=== PATIENT | female | born 1950 | race Caucasian/White ===

== ENCOUNTER 2022-08-12 15:08 | Outpatient (CLI) | payer MEDICARE, OTHER, SELFPAY ==
--- NOTE | 2022-08-12 15:15 | CRLHL7_ITS ---
For Patients: As a result of the Century Cures Act, medical imaging exams and procedure reports are released immediately into your electronic medical record. You may view this report before your referring provider. If you have questions, please contact your health care provider. Indication: Pain Technique: Three views right wrist Comparison: None Findings: Chronic ossicle adjacent to the tip of the ulnar styloid. Narrowing and spurring at the triscaphe joint and 1st carpometacarpal joint. No fracture. No erosive changes. Impression: Multifocal degenerative joint disease. Dictated by Alejandro Deluca MD @ 08/13/2022 9:49:49 AM (Electronically Signed)
--- NOTE | 2022-08-12 15:15 | CRLHL7_ITS ---
For Patients: As a result of the Cures Act, medical imaging exams and procedure reports are released immediately into your electronic medical record. You may view this report before your referring provider. If you have questions, please contact your health care provider. Indication: Pain Technique: Right hand 3 views. Comparison: None Findings: Multifocal joint space narrowing and spurring involving the interphalangeal joints and metacarpophalangeal joints along with the 1st carpometacarpal joint. Osteopenia. No fracture. No erosive changes. Impression: Moderate multifocal degenerative joint disease. Dictated by Alejandro Deluca MD @ 08/13/2022 9:14:16 AM (Electronically Signed)
--- NOTE | 2022-08-12 15:15 | CRLHL7_ITS ---
For Patients: As a result of the Century Cures Act, medical imaging exams and procedure reports are released immediately into your electronic medical record. You may view this report before your referring provider. If you have questions, please contact your health care provider. Indication: Pain Technique: Three views left wrist Comparison: None Findings: Joint space narrowing and spurring at the 1st carpometacarpal joint. Chronic ossicle adjacent to the distal ulna. No acute fracture. No erosive changes. Impression: Moderate 1st carpometacarpal degenerative joint disease. Dictated by Alejandro Deluca MD @ 08/13/2022 9:15:05 AM (Electronically Signed)
--- NOTE | 2022-08-12 15:15 | CRLHL7_ITS ---
For Patients: As a result of the Century Cures Act, medical imaging exams and procedure reports are released immediately into your electronic medical record. You may view this report before your referring provider. If you have questions, please contact your health care provider. Indication: Pain Technique: Three views left hand Comparison: None Findings: Multifocal joint space narrowing and spurring involving the interphalangeal joints, metacarpophalangeal joints and 1st carpometacarpal joint. Prominent spurring at the little finger DIP joint noted. Multiple small chronic ossicles adjacent to the joint spaces. No fracture or erosive change. Impression: Multifocal degenerative joint disease. Dictated by Alejandro Deluca MD @ 08/13/2022 9:49:06 AM (Electronically Signed)
== END 2022-08-12 15:09 | disposition home or self-care (01) ==
LOC: RAD 15:13
PROVIDERS: PCP Family Medicine; Visit Provider Internal Medicine Rheumatology
DX: M25.531 Pain in right wrist (principal); M19.231 Secondary osteoarthritis, right wrist; M79.642 Pain in left hand; M19.042 Primary osteoarthritis, left hand; M25.532 Pain in left wrist; M19.232 Secondary osteoarthritis, left wrist; M79.641 Pain in right hand; M19.041 Primary osteoarthritis, right hand
CPT/HCPCS: 73110; 73130

== ENCOUNTER 2022-10-12 07:06 | Outpatient (CLI) | payer MEDICARE, OTHER, SELFPAY ==
--- NOTE | 2022-10-12 07:15 | CRLHL7_ITS ---
For Patients: As a result of the Century Cures Act, medical imaging exams and procedure reports are released immediately into your electronic medical record. You may view this report before your referring provider. If you have questions, please contact your health care provider. INDICATION: Low back pain. Numbness. COMPARISON: None. TECHNIQUE: Sagittal T1, T2, and STIR sequences. Axial T1 and T2 weighted sequences. FINDINGS: Grade 1 anterolisthesis of L4 on L5 measures approximately 5 mm. Otherwise, normal alignment. No fractures. No vertebral body loss of height. Postoperative changes of laminectomies at L3-4 L4-5 and L5-S1. Posterior cody and transpedicular screw fixation L3-L5. Associated artifact. Edema and likely granulation tissue within the posterior soft tissues of the operative bed. No suspicious osseous lesions. Number conus terminates at L1-2. T12-L1: Disc degeneration posterior disc bulge. No spinal canal or neural foraminal narrowing. L1-2: Advanced disc degeneration. Loss disc height. Diffuse disc bulge and endplate osteophytic ridging eccentric to the right. Modic type 1 endplate changes. Mild narrowing of spinal canal. Moderate right and mild left neural foraminal narrowing. Potential impingement of the exiting right L1 nerve root. Mild facet arthropathy. L2-3: Disc degeneration. No narrowing of the spinal canal. Mild narrowing of the bilateral foramina. L3-4: Disc degeneration posterior disc bulge. No narrowing of spinal canal. Mild narrowing of bilateral foramina. L4-5: Grade 1 anterolisthesis. No narrowing of spinal canal. No neural foraminal narrowing. L5-S1: Postoperative changes. No narrowing of spinal canal. No impingement of the traversing S1 nerve roots. Allowing for artifact, a known and neural foraminal narrowing. Degenerative changes of the SI joints. Bone graft donor site right ilium. IMPRESSION: 1. Grade 1 anterolisthesis of L4 on L5. Otherwise normal alignment. No fractures. 2. Postop changes L3-4, L4-5 and L5-S1. 3. At L1-2, advanced disc degeneration. Diffuse disc bulge and endplate osteophytic ridging. Mild narrowing of spinal canal moderate right and mild left neural foraminal narrowing. Potential impingement of the exiting right L1 nerve root 4. Mild narrowing of the bilateral neural foramina at L2-3 and L3-4 Dictated by Camilo Ramsay MD @ 10/12/2022 5:08:00 PM (Electronically Signed)
== END 2022-10-12 07:07 | disposition home or self-care (01) ==
PROVIDERS: PCP Family Medicine; Visit Provider Specialist
DX: M54.50 Low back pain, unspecified (principal); M51.36 Other intervertebral disc degeneration, lumbar region; M51.26 Other intervertebral disc displacement, lumbar region; R20.0 Anesthesia of skin
CPT/HCPCS: 72148

== ENCOUNTER 2024-05-27 20:07 | Emergency (ER) | payer MEDICARE, OTHER, SELFPAY ==
[2024-05-27] VITALS (30 sets, daily range): BP systolic 112–189; BP diastolic 71–131; PULSE 73–95; RESP 18–20; TEMP 36.4; O2SAT 84–100; BMI 26.0
--- NOTE | 2024-05-27 | CRLHL7_ITS ---
For Patients: As a result of the Century Cures Act, medical imaging exams and procedure reports are released immediately into your electronic medical record. You may view this report before your referring provider. If you have questions, please contact your health care provider. Indication: Pelvis, post reduction Technique: Successive frontal views of the pelvis Comparison: Same day radiographs Findings/Impression: Successive use pelvis. The final image demonstrates restored alignment of the left hip prosthesis. Dictated by Chris Vera MD @ 05/27/2024 10:24:55 PM (Electronically Signed)
--- NOTE | 2024-05-27 20:23 | CRLHL7_ITS ---
For Patients: As a result of the Cures Act, medical imaging exams and procedure reports are released immediately into your electronic medical record. You may view this report before your referring provider. If you have questions, please contact your health care provider. Indication: Dislocation. Technique: Single AP view of the pelvis. Comparison: None. Findings/Impression: Bilateral total hip arthroplasties. Superolateral dislocation of the left femoral stem from the acetabular cup. No definite fracture visualized on this single view. Intact right hip arthroplasty. Lower lumbar fusion changes. Degenerative changes of the sacroiliac joints. The soft tissues are unremarkable. Dictated by Sp Mo MD @ 05/27/2024 9:28:13 PM (Electronically Signed)
--- NOTE | 2024-05-27 20:35 | ED_ITS ---
HPI - General Adult General Chief complaint: Hip Injury/Pain <Jose Juan Yang MD - Last Filed: 05/27/24 22:27> Stated complaint: Fall <Jose Juan Yang MD - Last Filed: 05/27/24 22:27> Time Seen by Provider: 05/27/24 20:15 <Jose Juan Yang MD - Last Filed: 05/27/24 22:27> History of Present Illness HPI narrative: This 73-year-old female comes in with a hip injury that occurred just prior to arrival. She has had a left total hip replacement and has had 2 previous dislocations. Today she was in the bathroom and twisted to grab a hold of something when her hip dislocated. She does not report any other injury. <Jose Juan Yang MD - Last Filed: 05/27/24 22:27> Related Data Home medications: Home Medications ?Medication ?Instructions ?Recorded ?Confirmed amlodipine 5 mg tablet 5 mg PO DAILY 09/16/22 05/29/24 dapagliflozin propanediol 10 mg 10 mg PO DAILY 09/16/22 05/29/24 tablet (Farxiga) fluticasone propionate 50 2 spray intranasal DAILY PRN 09/16/22 05/29/24 mcg/actuation nasal spray,suspension meloxicam 15 mg tablet 15 mg PO DAILY 09/16/22 05/29/24 dulaglutide 0.75 mg/0.5 mL 0.75 mg subcut QWEEK 04/13/23 05/29/24 subcutaneous pen injector ([facility]) losartan 50 mg tablet 50 mg PO DAILY 04/13/23 05/29/24 rosuvastatin 20 mg tablet 20 mg PO HS 04/13/23 05/29/24 duloxetine 60 mg capsule,delayed 60 mg PO DAILY 05/29/24 05/29/24 release levothyroxine 88 mcg tablet 88 mcg PO DAILY 05/29/24 05/29/24 omeprazole 40 mg capsule,delayed 40 mg PO BID 05/29/24 05/29/24 release Previous Rx's ?Medication ?Instructions ?Recorded acetaminophen 500 mg capsule 500 - 1,000 mg (1 - 2 x 500 mg) PO 04/13/23 Q6H PRN #100 caps sennosides 8.6 mg-docusate sodium 1 - 4 tab-cap (1 - 4 x 8.6-50 mg) 04/13/23 50 mg tablet (Senna-S) PO BID PRN constipation #60 tabs <Jose Juan Yang MD - Last Filed: 05/27/24 22:27> Allergies/adverse reactions: Allergies Allergy/AdvReac Type Severity Reaction Status Date / Time hydrocodone Allergy Intermediate nausea and Verified 05/29/24 15:26 vomiting oxycodone Allergy Intermediate nausea, Verified 05/29/24 15:26 itchy ragweed pollen Allergy Intermediate runny Verified 05/29/24 15:26 nose, congetion, watery eyes <Jose Juan Yang MD - Last Filed: 05/27/24 22:27> Review of Systems 2 Status of ROS: Reports: 10 or more systems reviewed and unremarkable except as noted in History and below <Jose Juan Yang MD - Last Filed: 05/27/24 2 2:27> Narrative: Constitutional: No fevers, no weight gain or loss. Eyes: No discharge. No vision changes. HENT: No congestion, no sore throat, no ear pain. Cardiovascular: No chest pain, no palpitations. Respiratory: No shortness of breath, no wheezes, no cough. Gastrointestinal: No abdominal pain, no vomiting, no diarrhea. Genitourinary: No dysuria, no hematuria. Musculoskeletal: Left hip dislocation. Skin: No rashes, no pruritis. Neurological: No dizziness, weakness, sensory change, speech change. Endo/Heme/Allergies: No bruising or bleeding. No polydipsia. Pysch: no suicidality, no anxiety, no insomnia. All other systems reviewed and are negative. <Jose Juan Yang MD - Last Filed: 05/27/24 22:27> [facility] Medical History: Medical History (Updated 05/31/24 @ 09:03 by Maynor Dupont PA-C) Diabetic gastroparesis ?E11.43 - Type 2 diabetes mellitus with diabetic autonomic (poly)neuropathy (ICD-10) ?K31.84 - Gastroparesis (ICD-10) Coronary artery disease ?I25.10 - Atherosclerotic heart disease of [place] coronary artery without angina pectoris (ICD-10) Hypertension ?I10 - Essential (primary) hypertension (ICD-10) Diabetes ?E11.9 - Type 2 diabetes mellitus without complications (ICD-10) Wax in ear ?H61.20 - Impacted cerumen, unspecified ear (ICD-10) Sinus pain ?J34.89 - Other specified disorders of nose and nasal sinuses (ICD-10) Sensation of plugged ear ?H93.8X9 - Other specified disorders of ear, unspecified ear (ICD-10) Encounter for postoperative care ?Z48.89 - Encounter for other specified surgical aftercare (ICD-10) <Jose Juan Yang MD - Last Filed: 05/27/24 22:27> Surgical History: Surgical History (Updated 05/31/24 @ 09:02 by Maynor Dupont PA-C) History of arthroscopy of hip (08/20/15) ?Z98.890 - Other specified postprocedural states (ICD-10) History of total right knee replacement (04/13/23) ?Z96.651 - Presence of right artificial knee joint (ICD-10) S/P arthroscopy of left shoulder (05/10/06) ?Z98.890 - Other specified postprocedural states (ICD-10) S/P arthroscopy of right shoulder (11/08/06) ?Z98.890 - Other specified postprocedural states (ICD-10) 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) ?Z96.641 - Presence of right artificial hip joint (ICD-10) History of total left hip replacement (2005) ?Z96.642 - Presence of left artificial hip joint (ICD-10) History of fusion of lumbar spine (03/13/13) ?Z98.1 - Arthrodesis status (ICD-10) History of bilateral inguinal hernia repair ?Z98.890 - Other specified postprocedural states (ICD-10) ?Z87.19 - Personal history of other diseases of the digestive system (ICD-10) <Jose Juan Yang MD - Last Filed: 05/27/24 22:27> Family History: Family History Mother High blood pressure Diabetes Hyperlipidemia Brother Diabetes Hyperlipidemia Sister Diabetes Hyperlipidemia Breast cancer COPD (chronic obstructive pulmonary disease) <Jose Juan Yang MD - Last Filed: 05/27/24 22:27> Social History: Social History (Reviewed 12/22/23 @ 13:56 by Gris Gudino ~ [facility], [facility]) Narrative: micheline Migdalia ([facility]) Nonsmoker Smoking Status: Former smoker What tobacco products do you use: cigarettes Smoking packs per day: 0.5 Smoking cigarettes per day: 10.0 Years smoked: 12 Smoking pack-years: 6.00 Smoking quit date/years: >15 years ago Do you use any of these nicotine containing products: None Second hand tobacco smoke exposure: No How often do you have a drink containing alcohol: never How many standard drinks containing alcohol do you have on a typical day: 1 or 2 How often do you have six or more drinks on one occasion: Never AUDIT-C Alcohol total score: 0 Non-prescribed substance use: denies use Caffeine: Yes (coffee, 1- 1 1/2 cup/day) service: No <Jose Juan Yang MD - Last Filed: 05/27/24 22:27> Exam Narrative: Exam Narrative: Constitutional: Well-developed, well-nourished, no acute distress. HEENT: Normocephalic, atraumatic. Neck: Normal range of motion. Nontender. Supple. Heart: Intact distal pulses. Lungs: No chest discomfort. No wheezes, rhonchi, or rales. Abdomen: Nontender. Back: Normal range of motion. Extremities: Left hip is abducted and slightly internally rotated. She is unable to lift her leg. Skin: Intact. No rash. Warm. No erythema or pallor. Neurologic: No altered sensation. No weakness. Alert and oriented. Psychiatric: No suicidality. No anxiety or depression. No insomnia. Nursing notes and vitals signs are reviewed. <Jose Juan Yang MD - Last Filed: 05/27/24 22:27> Const: Vital Signs, click to edit/add: Vital Signs - 24 hr 05/27/24 20:12 Temperature 97.6 F Pulse Rate [Right Pulse Oximeter] 76 Respiratory Rate 20 Blood Pressure [Le ft Upper Arm] 173/86 H Pulse Oximetry 94 Oxygen Delivery Me thod Room Air <Jose Juan Yang MD - Last Filed: 05/27/24 22:27> Vital Signs, click to edit/add: Vital Signs - 24 hr 05/27/24 20:12 Temperature 97.6 F Pulse Rate [Right Pulse Oximeter] 76 Respiratory Rate 20 Blood Pressure [Le ft Upper Arm] 173/86 H Pulse Oximetry 94 Oxygen Delivery Me thod Room Air <Cherrie Lazo MD - Last Filed: 05/31/24 12:27> Course Course ED Course: I was asked to provide moderate sedation for this patient for the relocation of her hip. Risks and benefits of the procedure were discussed with the patient. She denies any reaction anesthesia in the past. Has had propofol without incident before. Time-out performed 60 mg of IV propofol was used. Patient was properly sedated. Unfortunately relocation of the hip was unsuccessful. Patient did wake up afterwards. We discussed doing the procedure again and patient wished to proceed. Therefore another 60 mg of IV propofol was used. Appropriate sedation was achieved. Hip was relocated. Patient woke up from procedural sedation without complication. <Cherrie Lazo MD - Last Filed: 05/31/24 12:27> Vital Signs Vital signs: Initial Vital Signs Temperature 97.6 F 05/27/24 20:12 Temperature Source Temporal Artery Scan 05/27/24 20:12 Pulse Rate 76 05/27/24 20:12 Pulse Rhythm Regular 05/27/24 20:12 Respiratory Rate 20 05/27/24 20:12 Blood Pressure 173/86 H 05/27/24 20:12 Blood Pressure Mean 115 H 05/27/24 20:12 Blood Pressure Position Semi-Fowlers 05/27/24 20:12 Pulse Oximetry 94 05/27/24 20:12 Oxygen Delivery Method Room Air 05/27/24 20:12 Vital Signs Temperature 97.6 F 05/27/24 20:12 Pulse Rate 76 05/27/24 20:12 Respiratory Rate 20 05/27/24 20:12 Blood Pressure 173/86 H 05/27/24 20:12 Pulse Oximetry 94 05/27/24 20:12 Oxygen Delivery Method Room Air 05/27/24 20:12 Temperature 97.6 F 05/27/24 20:12 Pulse Rate 81 05/27/24 22:37 Respiratory Rate 18 05/27/24 21:45 Blood Pressure 157/74 H 05/27/24 22:42 Pulse Oximetry 95 05/27/24 22:37 Oxygen Delivery Method Room Air 05/27/24 20:12 <Jose Juan Yang MD - Last Filed: 05/27/24 22:27> Initial Vital Signs Temperature 97.6 F 05/27/24 20:12 Temperature Source Temporal Artery Scan 05/27/24 20:12 Pulse Rate 76 05/27/24 20:12 Pulse Rhythm Regular 05/27/24 20:12 Respiratory Rate 20 05/27/24 20:12 Blood Pressure 173/86 H 05/27/24 20:12 Blood Pressure Mean 115 H 05/27/24 20:12 Blood Pressure Position Semi-Fowlers 05/27/24 20:12 Pulse Oximetry 94 05/27/24 20:12 Oxygen Delivery Method Room Air 05/27/24 20:12 Vital Signs Temperature 97.6 F 05/27/24 20:12 Pulse Rate 76 05/27/24 20:12 Respiratory Rate 20 05/27/24 20:12 Blood Pressure 173/86 H 05/27/24 20:12 Pulse Oximetry 94 05/27/24 20:12 Oxygen Delivery Method Room Air 05/27/24 20:12 Temperature 97.6 F 05/27/24 20:12 Pulse Rate 81 05/27/24 22:37 Respiratory Rate 18 05/27/24 21:45 Blood Pressure 157/74 H 05/27/24 22:42 Pulse Oximetry 95 05/27/24 22:37 Oxygen Delivery Method Room Air 05/27/24 20:12 <Cherrie Lazo MD - Last Filed: 05/31/24 12:27> Medications Administered Medications: Discontinued Medications Generic Name Dose Route Start Last Admin Trade Name Freq PRN Reason Stop Dose Admin Hydromorphone HCl 0.5 mg 05/27/24 20:42 05/27/24 20:55 Hydromorphone 0.5 Mg/0.5 Ml Inj IVP 05/27/24 20:43 0.5 mg ONCE ONE Administration Sodium Chloride 700 mls @ 1,000 mls/hr 05/27/24 22:18 05/27/24 22:20 0.9 % Sodium Chloride 250 Ml IV 05/27/24 22:59 1,000 mls/hr .Q42M ONE Administration Propofol 200 mg 05/27/24 20:24 05/27/24 21:43 Propofol 10 Mg/Ml Inj IVP 05/27/24 20:25 120 mg ONCE ONE Administration <Jose Juan Yang MD - Last Filed: 05/27/24 22:27> Discontinued Medications Generic Name Dose Route Start Last Admin Trade Name Edy PRN Reason Stop Dose Admin Hydromorphone HCl 0.5 mg 05/27/24 20:42 05/27/24 20:55 Hydromorphone 0.5 Mg/0.5 Ml Inj IVP 05/27/24 20:43 0.5 mg ONCE ONE Administration Sodium Chloride 700 mls @ 1,000 mls/hr 05/27/24 22:18 05/27/24 22:20 0.9 % Sodium Chloride 250 Ml IV 05/27/24 22:59 1,000 mls/hr .Q42M ONE Administration Propofol 200 mg 05/27/24 20:24 05/27/24 21:43 Propofol 10 Mg/Ml Inj IVP 05/27/24 20:25 120 mg ONCE ONE Administration <Cherrie Lazo MD - Last Filed: 05/31/24 12:27> Medical Decision Making MDM Narrative Medical decision making narrative: This patient comes in with injury to her left hip that is probable dislocation. X-ray images are obtained and do show an anterior dislocation of the left hip prosthesis. The patient last ate about 3 hours prior to arrival. I did recommend sedation with propofol and acquired informed consent after explaining risks and benefits of this procedure. Dr. Lazo is assisting in this procedure by administering the propofol and observing vital signs. The patient received 60 mg of propofol for adequate sedation but I was unsuccessful in 1st attempt to relocate the hip. She received another 60 mg and this time was a successful relocation of the dislocated hip. This was confirmed with x-ray image. The patient received a abducting pillow and is okay to be discharged home. She will need to follow-up with orthopedic clinic for ongoing plans as this is her 3rd dislocation of that left hip. <Jose Juan Yang MD - Last Filed: 05/27/24 22:27> ECG Data Attestation: I personally reviewed and interpreted this ECG as follows: <Jose Juan Yang MD - Last Filed: 05/27/24 22:27> Interpretation: Normal sinus rhythm. Rate is 72 beats per minute. There are no ST or T- wave abnormalities. <Jose Juan Yang MD - Last Filed: 05/27/24 22:27> Discharge Plan Discharge Clinical Impression: Dislocation, hip closed Qualifiers: Encounter type: subsequent encounter Laterality: left Qualified Code(s): S73.005D - Unspecified dislocation of left hip, subsequent encounter <Jose Juan Yang MD - Last Filed: 05/27/24 22:27> Patient Disposition: Home w/ Parent or Adult <Jose Juan Yang MD - Last Filed: 05/27/24 22:27> Condition: Improved <Jose Juan Yang MD - Last Filed: 05/27/24 22:27> Instructions: Hip Dislocation (ED), Hip Abduction Pillow (DC) <Jose Juan Yang MD - Last Filed: 05/27/24 22:27> Additional Instructions: Keep legs spread apart to avoid re dislocation. Follow-up with orthopedic clinic for ongoing management. Call [phone] for appointment. Return if worsening. <Jose Juan Yang MD - Last Filed: 05/27/24 22:27> Prescriptions: No Action Farxiga 10 mg tablet 10 mg PO DAILY amlodipine 5 mg tablet 5 mg PO DAILY fluticasone propionate 50 mcg/actuation spray,suspension 2 spray intranasal DAILY PRN meloxicam 15 mg tablet 15 mg PO DAILY Hold Instructions: Resume on 05/15/23. until you stop the celebrex. do not take meloxicam and Celebrex together levothyroxine 88 mcg tablet 88 mcg PO DAILY omeprazole 40 mg capsule,delayed release(DR/EC) 40 mg PO BID duloxetine 60 mg capsule,delayed release(DR/EC) 60 mg PO DAILY Trulicity 0.75 mg/0.5 mL pen injector 0.75 mg subcut QWEEK sennosides-docusate sodium [Senna-S] 8.6-50 mg tablet 1 - 4 tab-cap PO BID PRN (Reason: constipation) Qty: 60 0RF Rx Instructions: Hold medication if experiencing loose stools. acetaminophen 500 mg capsule 500 - 1,000 mg PO Q6H MDD 4000mg PRNQty: 100 0RF losartan 50 mg tablet 50 mg PO DAILY rosuvastatin 20 mg tablet 20 mg PO HS <Jose Juan Yang MD - Last Filed: 05/27/24 22:27> Follow Up/Referrals: Anne Campos MD [Primary Care Provider] - <Jose Juan Yang MD - Last Filed: 05/27/24 22:27> Stand Alone Forms: My[facility] Info Instructions <Jose Juan Yang MD - Last Filed: 05/27/24 22:27>
[2024-05-27] MEDS: HYDROmorphone 0.5 mg/0.5 ml inj IVP (20:55)
[2024-05-27] MEDS: PROPOFOL 10 MG/ML INJ 200 MG IVP (21:43)
--- OUTSIDE RECORDS SUMMARY | 2024-05-27 22:28 | XMS_ITS | Encounter Summary ---
Author Organization [place] Address [facility] [place] [address] Care Team Providers Care Assembler Mechanical Ordnance Name Role Phone Camilo Talamantes MD Primary Care Provider [phone] Khloe Wallace RN Unavailable [phone] Daisha Corado MD Unavailable [phone] Daisha Corado MD Primary Care Provider [phone] Khushi Sylvester RN Unavailable Unavailable Anne Campos MD Primary Care Provider [phone] Reason for Visit * Reason Onset Date Comments MyChart Communication 03/28/2022 GI referra l Encounter Details Date Type Department Care Team (Latest Contact Info) Description 03/28/2022 [facility] [place] Medical Advice [address] [address] Daisha Corado MD [address] [place] [address] MyChart Communication (GI referral) Social History Tobacco Use Types Packs/Day Years Used Date Smoking Tobacco: Former Cigarettes 0.5 41 0 11/14/1963 - 11/14/2004 Smokeless Tobacco: Never Alcohol Use Standard Drinks/Week Comments No 0 (1 standard drink = 0.6 oz pur e alcohol) rare Social Connection and Isolat ion Panel [NHANES] Answer Date Recorded In a typical week, how many times do you talk on the phone with family, friends, or neighbors? More than three times a week 03/08/2022 How often do you get togethe r with friends or relatives? Once a week 03/08/2022 How often do you attend chur or baptist services? More than 4 times per year 03/08/2022 Do you belong to any clubs o r organizations such as denominational groups, unions, fraternal or athletic groups, or school groups? No 03/08/2022 Attends Club or Organization Meetings Not on donny e 03/08/2022 Are you , , di vorced, , never , or living with a partner? 03/08/2022 AUDIT-C Answer Date Recorded Q1: How often do you have a drink containing alc ohol? Monthly or less 03/08/2022 Q2: How many drinks containi ng alcohol do you have on a typical day when you are drinking? 1 or 2 03/08/2022 Q3: How often do you have si x or more drinks on one occasion? Never 03/08/2022 Overall Financial Resource Strain (CARDIA) Answe r Date Recorded How hard is it for you to pa y for the very basics like food, housing, medical care, and heating? Not hard at all 03/08/2022 PHQ-2 Answer Date Recorded PHQ-2 Score 0 03/15/2022 [facility] Occupat ional [facility] - Occupational Stress Questionnaire Answer Date Recorded Do you feel stress - tense, restless, nervous, or anxious, or unable to sleep at night because your mind is troubled all the time - these days? Not at all 03/08/2022 Exercise Vital Sign Answer Date Recorde d On average, how many days pe r week do you engage in moderate to strenuous exercise (like a brisk walk)? 0 days 03/08/2022 On average, how many minutes do you engage in exercise at this level? 0 min 03/08/2022 Hunger Vital Sign Answer Date Recorded Within the past 12 months, y ou worried that your food would run out before you got the money to buy more. Never true 03/08/20 22 Within the past 12 months, t he food you bought just didn't last and you didn't have money to get more. Never true 03/08/2022 PRAPARE - Transportation Answer Date Re corded In the past 12 months, has l ack of transportation kept you from medical appointments or from getting medications? No 02/13 In the past 12 months, has l ack of transportation kept you from meetings, work, or from getting things needed for daily living? No 03/08/2022 Housing Stability Vital Sign Answer Navdeep e Recorded In the last 12 months, was t here a time when you were not able to pay the mortgage or rent on time? No 03/08/2022 In the last 12 months, how many places have you lived? 1 03/08/2022 In the last 12 months, was t here a time when you did not have a steady place to sleep or slept in a chcf (including now)? No 03/08/2022 Sex and Gender Information Value Date Recorded Sex Assigned at Female 03/08/2022 2:21 PM CDT Gender Identity Female 03/08/2022 2:21 PM CDT Sexual Orientation Not on file COVID-19 Exposure Response Date Recorded In the last 10 days, have yo u been in contact with someone who was confirmed or suspected to have Coronavirus/COVID-19? No / Unsure 03/29/2022 10:20 AM CDT documented as of this encounter Miscellaneous Notes * Telephone Encounter - Daisha Corado MD - 03/29/2022 12:17 PM CDT I am not at all against this but I saw her on 03/15/22 to establish care and do physical and I do notthink we addressed this. Perhaps phone visit to discuss and order appropriate testing? * Telephone Encounter - Sandrine Huntley RN - 03/29/2022 9:22 AM CDT See [employer] message, pt had visit on 03/15/[address] Corado, routed to , please review and advise Sandrine Huntley RN, BSN [facility] documented in this encounter Plan of Treatment Not on file documented as of this encounter Visit Diagnoses Not on filedocumented in this encounter Care Teams Assembler Mechanical Ordnance Relationship Specialty Start Date End Date Camilo Talamantes MD [facility] [address] [place] [address] PCP - General Family Practice 04/07/17 04/15/22 [place] [address] [place] [address] PCP - General Family Medicine 04/16/22 04/03/23 Anne Campos MD [address] [address] PCP - General 04/04/23 Khloe Wallace RN Hot Patcher Diabetes Education 03/29/22 [place] [address] [place] [address] Assigned PCP 02/26/22 Khushi Sylvester RN Personal Advocate & Liaison (PAL) Family Medicine 05/25/22 04/03/23 documented as of this encounter
--- OUTSIDE RECORDS SUMMARY | 2024-05-27 22:28 | XMS_ITS | Encounter Summary ---
Author Organization [place] Address [facility] [place] [address] Care Team Providers Care Shoe Stock Associate Name Role Phone Khloe Wallace RN Unavailable [phone] Daisha Corado MD Unavailable [phone] Daisha Corado MD Primary Care Provider [phone] Khushi Sylvester RN Unavailable Unavailable Anne Campos MD Primary Care Provider [phone] Reason for Visit * Reason Onset Date Comments Forms 11/19/2022 Diabetic Detaile d Written Order Encounter Details Date Type Department Care Team (Late st Contact Info) Description 11/19/[address] [address] Daisha Corado MD [address] [place] [address] [phone] Forms (Diabetic Detailed Written Order) Social History Tobacco Use Types Packs/Day Years [...] How often do you attend chur or catholic services? More than 4 times per year 03/08/2022 Do you belong to any clubs o r organizations such as amish groups, unions, fraternal or athletic groups, or [...] PHQ-2 Answer Date Recorded PHQ-2 Score 0 07/12/2022 [facility] [place] of Occupat ional Health - Occupational Stress [...] place to sleep or slept in a snf (including now)? No 03/08/2022 Sex and Gender Information Value Date Recorded Sex Assigned at Female 03/08/2022 2:21 PM CDT Gender Identity Female 03/08/2022 2:21 PM CDT Sexual Orientation Not on file documented as of this encounter Miscellaneous Notes * Telephone Encounter - Deborah Vallecillo CMA - 11/22/2022 11:57 AM CLAIM AGENT Signed form faxed to number listed below. Deborah Vallecillo CMA M AGENT * Telephone Encounter - Daisha Corado MD - 11/22/2022 10:16 AM CST Done and in my outbasket M AGENT * Telephone Encounter - America Harper - 11/19/2022 10:25 AM CST Received 2 page fax for Diabetic Detailed Written Order for Dr Quiñonez to complete. Form in the in-basket at SVITLANA's desk. M AGENT documented in this encounter Plan of Treatment Not on file documented as of this encounter Visit Diagnoses Not on filedocumented in this encounter Care Teams Shoe Stock Associate Relationship Specialty [place] [address] [place] [address] PCP - General Family Medicine 04/16/22 04/03/23 Anne Campos MD [address] [place] [address] PCP - General 04/04/23 Khloe Wallace RN Flat Examiner Diabetes Education 03/29/22 [place] [address] [place] [address] Assigned PCP 02/26/22 Khushi Sylvester RN Personal Advocate & Liaison (PAL) Family Medicine 05/25/22 04/03/23 documented as of this encounter
--- OUTSIDE RECORDS SUMMARY | 2024-05-27 22:28 | XMS_ITS | Encounter Summary ---
Author Organization [facility] Address [address] [place] [address] Care Team Providers Care Nuclear Auxiliary Operator Name Role Phone James Vera MD Primary Care Provider [phone] Encounter Details Date Type Department Care Team (Late st Contact Info) Description 08/20/2015 Orders Only [facility] [address] [place] [address] Damian Rubi MD [address] [place] [address] Sprain and strain of other specified sites of hip and thigh Social History Tobacco Use Types Packs/Day Years Used Date Smoking Tobacco: Never Assessed Sex and Gender Information Value Date Recorded Sex Assigned at Not on file Gender Identity Not on file Sexual Orientation Not on file documented as of this encounter Plan of Treatment Not on file documented as of this encounter Visit Diagnoses Diagnosis Sprain and strain of other specified sites of hip and thigh documented in this encounter Care Teams Nuclear Auxiliary Operator Relationship Specialty [place] [address] [place] [address] PCP - General 07/15/16 documented as of this encounter
--- OUTSIDE RECORDS SUMMARY | 2024-05-27 22:28 | XMS_ITS | Encounter Summary ---
Author Organization [place] Address [address] [place] [address] Care Team Providers Care Sausage Machine Operator Name Role Phone Khloe Wallace RN Unavailable [phone] Daihsa Corado MD Unavailable [phone] Daisha Corado MD Primary Care Provider [phone] Khushi Sylvester RN Unavailable Unavailable Anne Campos MD Primary Care Provider Reason for Visit * Reason Onset Date Comments Medication Request 05/28/2022 Encounter Details Date Type Department Care Team (Late st Contact Info) Description 05/28/2022 MyC Medical Advice [address] [address] Daisha Corado MD [address] [place] [phone] Medication Request Social History Tobacco Use Types Packs/Day Years [...] How often do you attend chur or latter day services? More than 4 times per year 03/08/2022 Do you belong to any clubs o r organizations such as rastafari groups, unions, fraternal or athletic groups, or [...] Answer Date Recorded PHQ-2 Score 0 03/15/2022 [facility] [place] of Occupat ional Health - Occupational Stress [...] place to sleep or slept in a intermediate (including now)? No 03/08/2022 Sex and Gender Information Value Date Recorded Sex Assigned at Female 03/08/2022 2:21 PM CDT Gender Identity Female 03/08/2022 2:21 PM CDT Sexual Orientation Not on file COVID-19 Exposure Response Date Recorded In the last 10 days, have yo u been in contact with someone who was confirmed or suspected to have Coronavirus/COVID-19? No / Unsure 05/03/2022 2:29 PM CDT documented as of this encounter Miscellaneous Notes * Telephone Encounter - Marilyn Carbajal RN - 05/28/2022 12:[address] Corado- see [employer] message below. Please advise. Marilyn Carbajal RN documented in this encounter Plan of Treatment Not on file documented as of this encounter Visit Diagnoses Diagnosis Primary osteoarthritis of left hip Primary localized osteoarthrosis, pelvic region and thigh documented in this encounter Care Teams Sausage Machine Operator Relationship Specialty [place] [address] [place] [address] PCP - General Family Medicine 04/16/22 04/03/23 Anne Campos MD [address] [address] PCP - General 04/04/23 Khloe Wallace RN Drawing Supervisor Diabetes Education 03/29/22 [place] [address] [place] [address] Assigned PCP 02/26/22 Khushi Sylvester, SIDRA Personal Advocate & Liaison (PAL) Family Medicine 05/25/22 04/03/23 documented as of this encounter
--- OUTSIDE RECORDS SUMMARY | 2024-05-27 22:28 | XMS_ITS | Encounter Summary ---
Author Organization [facility] Address [address] [place] [address] Care Team Providers Care Professor Of Kinesiology Name Role Phone James Vera MD Primary Care Provider [phone] Encounter Details Date Type Department Care Team (Latest Contact Info) Description 10/20/1995 Orders Only Ynes Montoya MD Social History Tobacco Use Types Packs/Day Years Used Date Smoking Tobacco: Never Assessed Sex and Gender Information Value Date Recorded Sex Assigned at Not on file Gender Identity Not on file Sexual Orientation Not on file documented as of this encounter Plan of Treatment Not on file documented as of this encounter Visit Diagnoses Not on filedocumented in this encounter Care Teams Professor Of Kinesiology Relationship Specialty [place] [address] [place] [address] PCP - General 07/15/16 documented as of this encounter
--- OUTSIDE RECORDS SUMMARY | 2024-05-27 22:28 | XMS_ITS | Encounter Summary ---
Author Organization [facility] Address [address] [place] [address] Care Team Providers Care School Principal Name Role Phone James Vera MD Primary Care Provider Encounter Details Date Type Department Care Team (Latest Contact Info) Description 08/17/1995 Orders Only Augusta Brasher MD Social History Tobacco Use Types Packs/Day Years Used Date Smoking Tobacco: Never Assessed Sex and Gender Information Value Date Recorded Sex Assigned at Not on file Gender Identity Not on file Sexual Orientation Not on file documented as of this encounter Plan of Treatment Not on file documented as of this encounter Visit Diagnoses Not on filedocumented in this encounter Care Teams School Principal Relationship Specialty [place] [address] [place] [address] PCP - General 07/15/16 documented as of this encounter
--- OUTSIDE RECORDS SUMMARY | 2024-05-27 22:28 | XMS_ITS | Encounter Summary ---
Author Organization [employer] Address [address] [place] [address] Care Team Providers Care Lawyer Probate Name Role Phone James Vera MD Primary Care Provider [phone] Encounter Details Date Type Department Care Team (Latest Contact Info) Description 08/22/1995 [place] [address] [place] [address] Social History Tobacco Use Types Packs/Day Years Used Date Smoking Tobacco: Never Assessed Sex and Gender Information Value Date Recorded Sex Assigned at Not on file Gender Identity Not on file Sexual Orientation Not on file documented as of this encounter Plan of Treatment Not on file documented as of this encounter Visit Diagnoses Not on filedocumented in this encounter Care Teams Lawyer Probate Relationship Specialty [place] [address] [place] [address] PCP - General 07/15/16 documented as of this encounter
--- OUTSIDE RECORDS SUMMARY | 2024-05-27 22:28 | XMS_ITS | Encounter Summary ---
Author Organization [place] Address [facility] [place] [address] Care Team Providers Care Creative Guru Name Role Phone Khloe Wallace RN Unavailable [phone] Daisha Corado MD Unavailable [phone] Daisha Corado MD Primary Care Provider [phone] Khushi Sylvester RN Unavailable Unavailable Anne Campos MD Primary Care Provider [phone] Reason for Visit * Reason Onset Date Comments Medication Question 06/21/2022 Trulicity Encounter Details Date Type Department Care Team (Late st Contact Info) Description 06/21/2022 MyC Medical Advice [address] [id number] Daisha Corado MD [address] [place] [phone] Medication Question (Trulicity ) Social History Tobacco Use Types Packs/Day Years [...] How often do you attend chur or rastafari services? More than 4 times per year 03/08/2022 Do you belong to any clubs o r organizations such as oriental orthodox groups, unions, fraternal or athletic groups, or [...] Answer Date Recorded PHQ-2 Score 0 03/15/2022 [facility] [place] of Occupat ional Health - Occupational Stress [...] place to sleep or slept in a custodial (including now)? No 03/08/2022 Sex and Gender Information Value Date Recorded Sex Assigned at Female 03/08/2022 2:21 PM CDT Gender Identity Female 03/08/2022 2:21 PM CDT Sexual Orientation Not on file documented as of this encounter Miscellaneous Notes * Telephone Encounter - Patt Rocha RN - 06/21/2022 1:[address] Quiñonez Please review my chart message and advise Thank you, Patt Rocha, Registered Nurse, PAL (Patient Advocate Liason) [facility] [phone] documented in this encounter Plan of Treatment Not on file documented as of this encounter Visit Diagnoses Not on filedocumented in this encounter Care Teams Creative Guru Relationship Specialty [place] [address] [place] [address] PCP - General Family Medicine 04/16/22 04/03/23 Anne Campos MD [address] [address] PCP - General 04/04/23 Khloe Wallace RN Section Chief Diabetes Education 03/29/22 [place] [address] [place] [address] Assigned PCP 02/26/22 Khushi Sylvester RN Personal Advocate & Liaison (PAL) Family Medicine 05/25/22 04/03/23 documented as of this encounter
--- OUTSIDE RECORDS SUMMARY | 2024-05-27 22:28 | XMS_ITS | Encounter Summary ---
Author Organization [place] Address [facility] [place] [address] Care Team Providers Care Pure Culture Operator Name Role Phone Khloe Wallace RN Unavailable [phone] Daisha Corado MD Unavailable [phone] Daisha Corado MD Primary Care Provider [phone] Khushi Sylvester RN Unavailable Unavailable Anne Campos MD Primary Care Provider [phone] Reason for Visit * Reason Onset Date Comments Patient Request 05/04/2022 Encounter Details Date Type Department Care Team (Late st Contact Info) Description 05/04/2022 MyC Medical Advice [address] [address] Daisha Corado MD [address] [place] [id number] Patient Request Social History Tobacco Use Types Packs/Day [...] How often do you attend chur or orthodoxy services? More than 4 times per year 03/08/2022 Do you belong to any clubs o r organizations such as buddhism groups, unions, fraternal or athletic groups, or [...] Answer Date Recorded PHQ-2 Score 0 03/15/2022 [facility] [place] of Occupat ional Health - Occupational Stress [...] place to sleep or slept in a long-term (including now)? No 03/08/2022 Sex and Gender [...] Telephone Encounter - Marilyn Carbajal RN - 05/05/2022 7:[address] Corado- see [employer] message below. Please advise. Marilyn Carbajal RN documented in this encounter Plan of Treatment Not on file documented as of this encounter Visit Diagnoses Not on filedocumented in this encounter Care Teams Pure Culture Operator Relationship Specialty [place] [address] [place] [address] PCP - General Family Medicine 04/16/22 04/03/23 Anne Campos MD [address] [address] PCP - General 04/04/23 Khloe Wallace RN Director Wholesale Diabetes Education 03/29/22 [place] [address] [place] [address] Assigned PCP 02/26/22 Khushi Sylvester RN Personal Advocate & Liaison (PAL) Family Medicine 05/25/22 04/03/23 documented as of this encounter"
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
--- OUTSIDE RECORDS SUMMARY | 2024-05-27 22:28 | XMS_ITS ---
Author Organization [facility] Address [address] [place], [place] [address]. [place] [address] Care Team Providers Care Core Finisher Name Role Phone Khloe Wallace RN Unavailable [phone] Daisha Corado MD Unavailable [phone] Anne Campos MD Primary Care Provider [phone] Diabetes Self-Management Education Status:Enrolled (Active) Start date:03/29/2022 Enrollment date:03/29/2022 Case Team Name Relationship Phone Khloe Wallace RNus administrative law judge(Responsible Staff) [phone] Continued Care and Services Coordination
--- OUTSIDE RECORDS SUMMARY | 2024-05-27 22:28 | XMS_ITS | Encounter Summary ---
[facility] Address [address] [place] [address] Care Team Providers Care Vice President Of Development Name Role Phone James Vera MD Primary Care Provider [phone] Reason for Visit * Reason Comments Refill Encounter Details Date Type Department Care Team (Late st Contact Info) Description 07/14/2016 Refill [facility] [address] [place] [address] Elias Ro MD [address] [facility] [address] [place], [place] [id number] Refill Social History Tobacco Use Types Packs/Day Years Used Date Smoking Tobacco: Former Alcohol Use Standard Drinks/Week Comments No 0 (1 standard drink = 0.6 oz pur e alcohol) Sex and Gender Information Value Date Recorded Sex Assigned at Not on file Gender Identity Not on file Sexual Orientation Not on file documented as of this encounter Plan of Treatment Not on file documented as of this encounter Visit Diagnoses Not on filedocumented in this encounter Care Teams Vice President Of Development Relationship Specialty [place] [address] [place] [address] PCP - General 07/15/16 documented as of this encounter
--- OUTSIDE RECORDS SUMMARY | 2024-05-27 22:28 | XMS_ITS | Encounter Summary ---
Author Organization [facility] Address [address] [place] [address] Care Team Providers Care Packaging Line Attendant Name Role Phone James Vera MD Primary Care Provider [phone] Encounter Details Date Type Department Care Team (Latest Contact Info) Description 09/22/1995 [place] [address] [place] [address] Social History Tobacco Use Types Packs/Day Years Used Date Smoking Tobacco: Never Assessed Sex and Gender Information Value Date Recorded Sex Assigned at Not on file Gender Identity Not on file Sexual Orientation Not on file documented as of this encounter Plan of Treatment Not on file documented as of this encounter Visit Diagnoses Not on filedocumented in this encounter Care Teams Packaging Line Attendant Relationship Specialty [place] [address] [place] [address] PCP - General 07/15/16 documented as of this encounter
--- OUTSIDE RECORDS SUMMARY | 2024-05-27 22:28 | XMS_ITS | Encounter Summary ---
Author Organization [facility] Address [address] [place] [address] Care Team Providers Care Director Private Music Therapy Agency Name Role Phone James Vera MD Primary Care Provider [phone] Encounter Details Date Type Department Care Team (Latest Contact Info) Description 02/03/1995 Orders Only Sweta Reddy Social History Tobacco Use Types Packs/Day Years Used Date Smoking Tobacco: Never Assessed Sex and Gender Information Value Date Recorded Sex Assigned at Not on file Gender Identity Not on file Sexual Orientation Not on file documented as of this encounter Plan of Treatment Not on file documented as of this encounter Visit Diagnoses Not on filedocumented in this encounter Care Teams Director Private Music Therapy Agency Relationship Specialty [place] [address] [place] [address] PCP - General 07/15/16 documented as of this encounter
--- OUTSIDE RECORDS SUMMARY | 2024-05-27 22:28 | XMS_ITS | Clinical Summary ---
[facility] Organization [facility] Address [address] [place] [address] Care Team Providers Care Divorce Mediator Name Role Phone James Vera MD Primary Care Provider [phone] Source Comments You are receiving this document as you are listed as the primary care provider,follow-up provider, or the patient has been referred to you for consultation.This is in compliance with the Medicare andMedicaid EHR Incentive Program,which states Providers who transition their patient to another setting of careor provider of care or refers their patient to another provider of care shouldprovide summary care record for each transition of care or referral. [email or web address] Allergies Active Allergy Reactions Criticality Noted Date Comments Naproxen 09/06/2016 Ambrosia Artemisiifolia (Ragweed) Skin Test 07/03/2015 PN: gets allergy shots Dust 07/03/2015 PN: gets allergy shots Hydrocodone-Acetaminophen Nausea And Vomiting 1 Metformin Other, see comments 02/23/2017 Diarrhea, nausea Molds & Smuts 07/03/2015 PN: gets allergy shots Pollen Extract 07/03/2015 PN: gets allergy shots Medications Medication Sig Dispensed Refills Start Date End Date Status rosuvastatin (CRESTOR) 10 MG tablet Take 20 mg by mouth daily (every 24 hours). 05/26/2015 Active levothyroxine (SYNTHROID) 88 MCG tablet Take 88 mcg by mouth daily (every 24 hours). Indications: HYPOTHYROIDISM 08/15/2015 Active citalopram (CELEXA) 20 MG tablet Take 20 mg by mouth daily (every 24 hours). 08/15/2015 Active celecoxib (CELEBREX) 200 MG capsule Take 200 mg by mouth 2 times daily. Indications: OSTEOARTHRITIS 08/15/2015 Active venlafaxine (EFFEXORXR) 75 MG 24 hour release capsuleIndications :HERBERT FREIRE TueApr 16, 2016 2:08 PM Received from: External Pharmacy TK 1 C PO D 2 01/19/2016 Active Misc Natural Products (OSTEO BI-FLEX JOINT SHIELD OR) Take by mouth. 04/16/2016 Active pseudoephedrine (SUDAFED) 30 MG tablet Take 30 mg by mouth daily (every 24 hours). 04/16/2016 Active glimepiride (AMARYL) 2 MG tablet Take 1 tablet by mouth daily. 07/13/2016 Active drug not in computer Lidocaine HCL 5% adhesive patch: apply 1 patch to affected area for up to 12 hours in a 24 hour period. Active allopurinol (ZYLOPRIM) 100 MG tablet TK 1 T PO QD 0 01/25/2017 Active famotidine (PEPCID) 20 MG tablet TK 1 T PO BID 5 11/18/2016 Active MEGARED OMEGA-3 KRILL OIL 500 MG CAPS 1 cap a day. 0 03/25/2017 Active acetaminophen 500 MG capsule 1-2 caps before Bed time. Maximum acetaminophen dose is 4000 mg in 24 hours 03/25/2017 Active amoxicillin (AKA AMOXIL) 500 MG tablet Take all 4 tablets one hour before dental work. 4 Tab 4 04/14/2018 Active Active Problems Problem Noted Date Diagnosed Date Hypothyroidism 03/25/2017 Type 2 diabetes mellitus wit hout complication, without long-term current use of insulin 03/25/2017 Diabetic polyneuropathy asso ciated with type 2 diabetes mellitus 03/25/2017 IHD (ischemic heart disease) 03/25/2017 Carpal tunnel syndrome 03/25/2017 Lumbar degenerative disc disease 03/25/2017 Rotator cuff syndrome of shoulder and allied dis orders 03/25/2017 Status post total replacement of left hip 2016 Immunizations Name Administration Dates Next Due Influenza, Unspecified Formulation 10/14/2016 PCV13 (Prevnar) 04/11/2014 Pfizer Monovalent 12+ Purple Top 04/07/2021,05/0 02/2021 Tdap 02/26/2016 Social History Tobacco Use Types Packs/Day Years Used Date Smoking Tobacco: Former Cigarettes Q uit: 11/14/2004 Smokeless Tobacco: Never Alcohol Use Standard Drinks/Week Comments No 0 (1 standard drink = 0.6 oz pur e alcohol) Sex and Gender Information Value Date Recorded Sex Assigned at Not on file Gender Identity Not on file Sexual Orientation Not on file Last Filed Vital Signs Vital Sign Reading Time Taken Comments Blood Pressure 147/77 03/25/2017 9:23 AM CDT Pulse 75 03/25/2017 9:23 AM CDT Temperature - - Respiratory Rate - - Oxygen Saturation - - Inhaled Oxygen Concentration - - Weight 66.2 kg (146 lb) 10/07/2021 10:57 AM CLEAN OUT DRILLER Height 154.9 cm (5' 1) 10/07/2021 10:57 AM CLEAN OUT DRILLER Body Mass Index 27.59 10/07/2021 10:57 AM CLEAN OUT DRILLER Plan of Treatment Health Maintenance Due Date Last Done Comments Colon Cancer Screening Plan Due 1950 Diabetes: Creatinine 1950 Diabetes: Foot Exam 1948 Diabetes: Lipid Panel 1948 Diabetes: Urine Microalbumin 1948 Hep C Screening (Preventive Services) 1950 Medicare Annual Wellness Visit 1948 Diabetes: Eye Exam 09/23/1995 09/23/1994, 09/23/1994 Mammogram 09/28/1996 09/28/1995, 05/1995, 09/20/1995, Additional history exists Dexa 2013 Pneumococcal 65+ Yrs (2 - PPSV23 or PCV20) 06/06/2014 04/11/2014 Zoster/Shingles (2 of 3) 10/27/2019 09/01/2019, 09/14 Diabetes: HGBA1C 06/20/2020 03/20/2020 COVID-19 Vaccine (3 - season) 2023 04/07/2021, 03/17/2021 Influenza (#1) 2024 09/01/2019, 11/2015, 09/30/2015, Additional history exists DTaP/Tdap/Td (4 - Tdap) 02/25/2026 02/26/20 16, 03/13/2013, 11/14/2012 HepA Aged Out No longer eligi ble based on patient's age to complete this topic HepB Aged Out No longer eligi ble based on patient's age to complete this topic Hib Aged Out No longer eligi ble based on patient's age to complete this topic IPV (Polio) Aged Out No longer eligi ble based on patient's age to complete this topic MCV4 Aged Out No longer eligi ble based on patient's age to complete this topic Procedures Procedure Name Priority Date/Time Associated Diagnosis Comments BREAST IMAGING 09/28/1995 from Last 3 Months or Most Recently Relevant to Health Maintenance Results * BREAST IMAGING (09/28/1995) Anatomical Region Laterality Modality Breast Other Narrative 09/28/1995 Ordered by an unspecified provider. Transcriptions Rio Anglin MD - 09/28/1995 12:00 AM CSTCOMBINED MAMMOGRAM/ULTRASOUND: Correlation is made between the right breast ultrasound 09/28/95 and the recent bilateral mammogram 09/20/95. The 15 x 20 millimeter lesion described in the upper outer portion of the right breast posterolaterally represents a simple cyst, and the cyst measures 17 x 10 millimeters on ultrasound located at the 10-11:00 position. CONCLUSION: The lesion described in the upper outer right breast on 09/20/95 mammogram is consistent with simple cyst. ACR BIRADS CATEGORY 2 - BENIGN FINDING(S) Irineo Anglin M.D. cc: Radiology RI James Vera MD Physician Unknown RAD_BI from Last 3 Months or Most Recently Relevant to Health Maintenance Care Teams Divorce Mediator Relationship Specialty [place] [address] [place] [address] PCP - General 07/15/16
--- OUTSIDE RECORDS SUMMARY | 2024-05-27 22:28 | XMS_ITS | Clinical Summary ---
Author Organization [facility] Address [address] [place] [address] Care Team Providers Care Director Of Speech Pathology Name Role Phone Khloe Wallace RN Unavailable Daisha Corado MD Unavailable [phone] Anne Campos MD Primary Care Provider [phone] Allergies Active Allergy Reactions Criticality Noted Date [...] (Adult), Adsorbed 12/04/1996 Zoster vaccine, live 09/30/2015 Family History Medical History Relation Comments Diabetes Brother Hyperlipidemia Brother Hypertension Brother Other Cancer Maternal Grandfather Cerebrovascular Disease Mother Diabetes Mother Hyperlipidemia Mother Hypertension Mother Breast Cancer Sister Diabetes Sister Hyperlipidemia Sister Thyroid Disease Sister Relation Status Comments Brother Maternal Grandfather Mother Sister Social History Tobacco Use Types Packs/Day Years [...] How often do you attend chur or buddhist services? More than 4 times per year 03/08/2022 Do you belong to any clubs o r organizations such as tenriism groups, unions, fraternal or athletic groups, or [...] Answer Date Recorded PHQ-2 Score 0 07/12/2022 [facility] - Occupational Stress [...] place to sleep or slept in a senior living (including now)? No 03/08/2022 Adolescent Education Answer [...] 05/03/2022 2:35 PM CDT Plan of Treatment Health Maintenance Due Date Last Done Comments CT COLONOGRAPHY 1948 DEXA 1948 FIT 1948 FLEX SIG 1948 sDNA (Cologuard) 1948 LUNG CANCER SCREENING 1998 RSV VACCINE ( & 60+) (1 - 1-dose 60+ series) 2008 ZOSTER IMMUNIZATION (2 of 3) 11/25/2015 09/30/2015 A1C 06/15/2022 03/15/2022 ANNUAL REVIEW OF HM ORDERS 03/15/2023 03/15/2022 BMP 03/15/2023 03/15/2022, 07/16, 07/01/2016 DIABETIC FOOT EXAM 03/15/2023 03/15/2022, 03/15/2022 FALL RISK ASSESSMENT 03/15/2023 03/15/2022 LIPID 03/15/2023 03/15/2022 MEDICARE ANNUAL WELLNESS VISIT 03/15/2023 03/15/2022, 08/22/1995, 09/07/1994 MICROALBUMIN 03/15/2023 03/15/2022 TSH W/FREE T4 REFLEX 05/03/2023 05/03/2022, 03/15/2022, 03/15/2022 COVID-19 Vaccine ( season) 2023 05/03/2022, 10/16/2021, 04/07/2021, Additional history exists EYE EXAM 09/08/2023 09/08/2022 PHQ-2 (once per calendar year) 2023 07/12/2022, 03/15/2022 INFLUENZA VACCINE (#1) 2024 6, 10/14/2016, 10/14/2016, Additional history exists DTAP/TDAP/TD IMMUNIZATION (4 - Td or Tdap) 02/25/2026 02/26/2016, 03/13/2013, 11/14/2012, Additional history exists ADVANCE CARE PLANNING 03/15/2027 03/15/2022 COLONOSCOPY 02/21/2028 02/20/2018 COLORECTAL CANCER SCREENING 02/21/2028 HEPATITIS C SCREENING Completed 03/15/2022 Pneumococcal Vaccine: 65+ Years Completed 03/15/2022, 04/11/2014 MAMMO SCREENING Discontinued 03/18/2023, 01/12, 03/20/2009, Additional history exists HPV IMMUNIZATION Aged Out No longer e ligible based on patient's age to complete this topic IPV IMMUNIZATION Aged Out No longer e ligible based on patient's age to complete this topic MENINGITIS IMMUNIZATION Aged Out No l onger eligible based on patient's age to complete this topic RSV MONOCLONAL ANTIBODY Aged Out No l onger eligible based on patient's age to complete this topic Medical Devices Implanted Type Area Religion Professor Device Identifier Shelf Expiration Date Model / Serial / Lot Mesh Ventralex Hernia 2.5 [place] Med W/Strap [id number] Implanted:Qty: 1 on 06/05/2018 by Alanis Sharpe MD at [facility] Mesh Right: Abdomen CR [employer]-DAVOL 03/11/2020 [id number] / / [id number] Mesh Ventralex Hernia 2.5 [place] Med W/Strap [id number] Implanted:Qty: 1 on 06/05/2018 by Alanis Sharpe MD at [facility] Mesh Left: Abdomen CR [employer]-DAVOL 03/11/2020 [id number] / / [id number] Herman [employer] Nephew Acetabular Liner 0* 32mm Id 48mm Od Implanted:Qty: 1 on 05/11/2017 by Elias Ro MD at [facility] Total Joint Component /Insert Left: Hip [employer] 06/05/2026 [id number] / / [id number] Imp Head Femoral Snr Dixon 32mm +4 [id number] Implanted:Qty: 1 on 05/11/2017 by Elias Ro MD at [facility] Total Joint Component /Insert Left: Hip [employer]-R 01/26/2027 [id number] / / [id number] Imp Scr Acet Snn Spherical Head 6.5x40mm [id number] Implanted:Qty: 1 on 06/30/2016 by Elias Ro MD at [facility] Left: Hip [employer]-R 01/27/2026 [id number] / / [id number] Imp Scr Acet Snn Spherical Head 6.5x25mm [id number] Implanted:Qty: 1 on 06/30/2016 by Elias Ro MD at [facility] Left: Hip HERMAN 02/26/2026 [id number] / / [id number] Imp Shell Snr Acet R3 3h 48mm [id number] Implanted:Qty: 1 on 06/30/2016 by Elias Ro MD at [facility] Left: Hip HERMAN 05/14/2025 [id number] / / [id number] Imp Stem Snn High Offset Sz 3 [id number] Implanted:Qty: 1 on 06/30/2016 by Elias Ro MD at [facility] Left: Hip HERMAN 01/11/2024 [id number] / / [id number] Explanted Type Area Religion Professor Device Identifier Shelf Expiration Date Model / Serial / Lot Imp Liner Snr Acet [id number] Implanted:Qty: 1 on 06/30/2016 by Elias Ro MD at [facility] Explanted:Qty: 1 on 05/11/2017 at [facility] Left: Hip [employer] 05/13/2025 [id number] / / [id number] Description:Explanted 7 Imp Head Femoral Snn Cocr 10/27 28mm +0 [id number] Implanted:Qty: 1 on 06/30/2016 by Elias Ro MD at [facility] Explanted:Qty: 1 on 05/11/2017 at [facility] Left: Hip [employer] 06/13/2025 [id number] / / [id number] Description:Explanted 7 Procedures Procedure Name Priority Date/Time [...] LAB - BLOOD ORDERABL ES OX LABORATORY [facility] [address] [place] [address] Lab (no room number, 1st floor of clinic) [place] [address], [facility] [phone] * Albumin Random Urine Quantitative with Creat [...] Corado MD LAB - URINE ORDERABL ES [facility] [address] [place] [address] Lab (no room number, 1st floor of clinic) [place] [address], [facility] [phone] * Hepatitis C Screen Reflex to HCV [...] - BLOOD ORDERABL ES [facility] SPECIALTY CORE/PROT/ENDO Specialty Core/Prot/Endo [address] [facility] [address], [facility] [phone] * (ABNORMAL) Lipid panel reflex to direct [...] - BLOOD ORDERABL ES Performing Organization Address City/[facility]/ZIP Co de Phone Number OX LABORATORY [facility] [address] Lab (no room number, 1st floor of clinic) [place] [address], [place] [phone] * (ABNORMAL) Hemoglobin A1c (03/15/2022 11:38 AM CDT) [facility] Hemoglobin A1C 6.3(H) 0.0 - 5.6 % 03/15/2022 11:42 AM CDT CR LABORATORY Comment: Normal <5.7% Prediabetes 5.7-6.4% ?? Diabetes 6.5% or higher Note: Adopted from ADA consensus guidelines. Blood BLOOD SPECIMEN / Unknown Venipuncture / Unknown 03/15/2022 11:38 AM CDT 03/15/2022 11:38 AM CDT Daisha Corado MD LAB - BLOOD ORDERABL ES CR LABORATORY [facility] [address] [place] [address] Lab (no room number, 1st floor of clinic) [place] [address], [place] [phone] * (ABNORMAL) Comprehensive metabolic panel (BMP + [...] includes age and gender (Babar et al., NEJM, DOI: 10.1056/[id number]) Blood BLOOD SPECIMEN / Unknown Venipuncture / Unknown 03/15/2022 11:38 AM CDT 03/15/2022 11:38 AM CDT Daisha Corado MD LAB - BLOOD ORDERABL ES [facility] [address] Lab (no room number, 1st floor of clinic) [place] [address], [facility] [phone] * Colonoscopy - HIM Scan (02/20/2018) Patient [...] right breast. On the left there are duvp-kl-kill oil cysts at the 12 o'clock position directly at the site of the marker that was placed upon the clinical lump. There are two oil cysts of greater than a centimeter, one on top and the other on the left MLO view and on the CC view one can appreciate three aqnq-qy-ysad oil cysts. Ultrasound is also done. Ultrasound [...] Continue clinical monitoring and screening mammography. Camilo Talamantes MD SPECIAL IMAGING STUD IES from Last 3 Months or Most Recently Relevant to Health Maintenance Advance Directives For more information, please contact: [phone] * Full Code (Latest Code Status on File) Date Activated Date Inactivated Comments 05/11/2017 5:04 PM 05/13/2017 6:01 PM * Full Code Date Activated Date Inactivated Comments 07/01/2016 7:22 AM 05/11/2017 5:04 PM * Full Code Date Activated Date Inactivated Comments 06/30/2016 5:10 PM 07/01/2016 7:22 AM Care Teams Director Of Speech Pathology Relationship Specialty Start Date End Date Anne Campos MD [facility] [place] [place] [address] PCP - General 04/04/23 Khloe Wallace RN Melt Superintendant Diabetes Education 03/29/22 [place] [address] [place] [address] Assigned PCP 02/26/22
--- OUTSIDE RECORDS SUMMARY | 2024-05-27 22:28 | XMS_ITS | Encounter Summary ---
Author Organization [facility] Address [address] [place] [address] Care Team Providers Care Power Generation Equipment Repairer Name Role Phone James Vera MD Primary Care Provider [phone] Encounter Details Date Type Department Care Team (Latest Contact Info) Description 04/30/1995 Orders Only Augusta Brasher MD Social History [...] on filedocumented in this encounter Care Teams Power Generation Equipment Repairer Relationship Specialty [place] [address] [place] [address] PCP - General 07/15/16 documented as of this encounter
--- OUTSIDE RECORDS SUMMARY | 2024-05-27 22:28 | XMS_ITS | Encounter Summary ---
Author Organization [facility] Address [address] [place] [address] Care Team Providers Care Network Architect Name Role Phone James Vera MD Primary Care Provider [phone] Encounter Details Date Type Department Care Team (Latest Contact Info) Description 06/23/1995 [place] [address] [place] [address] Social History Tobacco Use Types Packs/Day Years Used Date Smoking Tobacco: Never Assessed Sex and Gender Information Value Date Recorded Sex Assigned at Not on file Gender Identity Not on file Sexual Orientation Not on file documented as of this encounter Plan of Treatment Not on file documented as of this encounter Visit Diagnoses Not on filedocumented in this encounter Care Teams Network Architect Relationship Specialty [place] [address] [place] [address] PCP - General 07/15/16 documented as of this encounter
--- OUTSIDE RECORDS SUMMARY | 2024-05-27 22:29 | XMS_ITS | Encounter Summary ---
[facility] Address [address] [place] [address] Care Team Providers Care Euclid Operator Name Role Phone Anne Campos M.D. Primary Care Provider [phone]- [phone] Reason for Visit * Reason Comments Follow-up * Outpatient (Routine) - Closed Specialty Diagnoses / Procedures Referred By Louie dominguez Referred To Contact Family Medicine Anne Campos M.D. [address] [place] [phone] [facility] Region Referral ID Status Reason Start Date Expiration Date Visits Re quested Visits Authorized [id number] Closed 03/21/2024 09/20/2025 1 1 Encounter Details Date Type Department Care Team (Latest Contact Info) Description 04/25/2024 4:00 PM CDT Office Visit Department of Family Medicine, [facility], in [address] [phone] Anne Campos M.D. [address] [place] [phone] Radiculopathy Lumbar (Primary Dx); Hypertension And Chronic Kidney Disease Stage 2 Discharge Disposition: Home or Self Care Social History Tobacco Use Types Packs/Day Years Used Date Smoking Tobacco: Former Cigarettes Q uit: 2005 Smokeless Tobacco: Never Alcohol Use Standard Drinks/Week Comments Not Currently 1 (1 standard drink = 0.6 oz pur e alcohol) rare [facility] Utilities Answer Date Recorded In the past 12 months has th e electric, gas, oil, or water company threatened to shut off services in your home? No 03/16/2024 Humiliation, Afraid, Rape, and Kick questionnair e Answer Date Recorded Within the last year, have y ou been afraid of your partner or ex-partner? No 03/21/2024 Within the last year, have y ou been humiliated or emotionally abused in other ways by your partner or ex-partner? No Within the last year, have y ou been kicked, hit, slapped, or otherwise physically hurt by your partner or ex-partner? No 03/21/2024 Within the last year, have y ou been raped or forced to have any kind of sexual activity by your partner or ex-partner? No 03/21/2024 Social Connection and Isolat ion Panel [NHANES] Answer Date Recorded In a typical week, how many times do you talk on the phone with family, friends, or neighbors? More than three times a week 03/11/2023 How often do you get togethe r with friends or relatives? Once a week 03/11/2023 How often do you attend chur or evangelical services? More than 4 times per year 03/11/2023 Do you belong to any clubs o r organizations such as evangelical groups, unions, fraternal or athletic groups, or school groups? Yes 03/11/2023 How often do you attend meet ings of the clubs or organizations you belong to? More than 4 times per year 03/11/2023 Are you , , di vorced, , never , or living with a partner? 03/11/2023 AUDIT-C Answer Date Recorded Q1: How often do you have a drink containing alc ohol? Monthly or less 03/11/2023 Q2: How many drinks containi ng alcohol do you have on a typical day when you are drinking? 1 or 2 03/11/2023 Q3: How often do you have si x or more drinks on one occasion? Never 03/11/2023 Overall Financial Resource Strain (CARDIA) Answe r Date Recorded How hard is it for you to pa y for the very basics like food, housing, medical care, and heating? Not hard at all 06/06/2023 PHQ-2 Answer Date Recorded PHQ-2 Score 0 03/14/2024 [facility] - Occupational Stress Questionnaire Answer Date Recorded Do you feel stress - tense, restless, nervous, or anxious, or unable to sleep at night because your mind is troubled all the time - these days? Not at all 03/11/2023 Exercise Vital Sign Answer Date Recorde d On average, how many days pe r week do you engage in moderate to strenuous exercise (like a brisk walk)? 1 day 03/16/2024 On average, how many minutes do you engage in exercise at this level? 10 min 03/16/2024 Hunger Vital Sign Answer Date Recorded Within the past 12 months, y ou worried that your food would run out before you got the money to buy more. Never true 03/16/20 Within the past 12 months, t he food you bought just didn't last and you didn't have money to get more. Never true 03/16/2024 PRAPARE - Transportation Answer Date Re corded In the past 12 months, has l ack of transportation kept you from medical appointments or from getting medications? No 01/2024 In the past 12 months, has l ack of transportation kept you from meetings, work, or from getting things needed for daily living? No 03/16/2024 Nutrition Answer Date Recorded On average, how many serving s of fruits and vegetables do you eat per day (serving size is equal to 1 cup or approximately the size of a tennis ball)? 3-5 03/16/2024 Dental Answer Date Recorded Dental: Regular Dentist Yes 05/03/20 Employment Answer Date Recorded Employment status Retired 03/16/2024 Housing Stability Answer Date Recorded What is your living situation today? I have a [facility] to live 03/16/2024 Education Answer Date Recorded What is the highest level of school you have completed or the highest degree you have received? 12th grade 05/03/2022 Sex and Gender Information Value Date Recorded Sex Assigned at Female 05/03/2022 10:54 AM CDT Gender Identity Female 05/03/2022 10:54 AM CDT Sexual Orientation Straight 05/03/2022 10 :54 AM CDT documented as of this encounter Last Filed Vital Signs Vital Sign Reading Time Taken Comments Blood Pressure 127/74 04/25/2024 4:26 PM CDT Pulse 71 04/25/2024 4:26 PM CDT Temperature 36.4 ??C (97.5 ??F) 04/25/2024 4:23 PM CD T Respiratory Rate 14 04/25/2024 4:23 PM CDT Oxygen Saturation 96% 04/25/2024 4:23 PM CDT Inhaled Oxygen Concentration - - Weight 64.8 kg (142 lb 13.7 oz) 04/25/2024 4:23 PM CDT Height - - Body Mass Index 26.09 03/21/2024 9:42 AM CDT documented in this encounter Patient Instructions * Patient Instructions* Anne Campos M.D. - 04/25/2024 4:00 PM CDT Try increasing the Cymbalta to 60mg total daily. If this is going well let me know and I will update the prescription. You can decrease back to 30mg daily if concerns prior to follow-up. For stomach symptoms, schedule: Robert and EGD study with follow-up with Gastroenterology afterwards. For back pain; Schedule follow-up with Spine Surgery documented in this encounter Progress Notes * Anne Campos M.D. - 04/25/2024 4:00 PM CDT SUBJECTIVE CHIEF COMPLAINT / REASON FOR VISIT Sherice May is a 73 y.o. female who presents for evaluation of Follow-up. HISTORY OF PRESENT ILLNESS Left low back pain to left leg and can radiate on the right as well. The left side is the worse side and she has chronic pain to 6/10 and never goes away. She has had prior back surgeries with Dr. Hollis. She has had prior cortisone injections. Recent EMG completed: CLINICAL INTERPRETATION: This is an abnormal study. There is electrophysiologic evidence of chronicleft L4 and L5 radiculopathies without uncompensated denervation. A superimposed mild, distal left L5 radiculopathy can not be completely excluded. There is no definite electrophysiologic evidence ofa length-dependent large fiber peripheral neuropathy on this study. She does feel that the cymbalta has been helping with the pain but she wonders about diarrhea for the last 1.5 weeks as a side effect however she also notes that it is similar to the diarrhea that she will normally get at times. She has been using 2 Senakot BID. She has noticed nausea, fatigue, and for the last 4 days food hasbeen sticking with swallowing more and leading to difficulty with swallowing. EGD and Robert previously recommended and ordered by GI which she is interested in proceeding with. OBJECTIVE BP 127/74 (BP Location: Left arm, Patient Position: Sitting, Cuff Size: Regular) Pulse 71 Temp 36.4 ??C (Temporal) Resp 14 Wt 64.8 kg SpO2 96% No BMI 26.09 kg/m?? PHYSICAL EXAM Constitutional General: She is not in acute distress. Appearance: Normal appearance. She is not ill-appearing. HENT Head: Normocephalic and atraumatic. Pulmonary Effort: Pulmonary effort is normal. No respiratory distress. Neurological General: No focal deficit present. Mental Status: She is alert and oriented to person, place, and time. Mental status is at baseline. Psychiatric Mood and Affect: Mood normal. Behavior: Behavior normal. Thought Content: Thought content normal. Results for orders placed or performed during the hospital encounter of 03/21/24 S-TSH (Thyroid-Stimulating Hormone - Sensitive) Result Value Ref Range TSH, Sensitive 1.2 0.3 - 4.2 mIU/L Hemoglobin A1c Result Value Ref Range Hemoglobin A1c, B 6.8 (H) 4.2 - 5.6 % Comprehensive Metabolic Panel Result Value Ref Range Potassium, P 4.2 3.6 - 5.2 mmol/L Sodium, P 141 135 - 145 mmol/L Chloride, P 103 98 - 107 mmol/L Bicarbonate, P 25 22 - 29 mmol/L Anion Gap, P 13 7 - 15 BUN (Blood Urea Nitrogen), P 23 (H) 6 - 21 mg/dL Creatinine 0.73 0.59 - 1.04 mg/dL Estimated GFR (eGFR) 86 >=60 mL/min/BSA Calcium, Total, P 9.6 8.8 - 10.2 mg/dL Glucose, P 142 (H) 70 - 140 mg/dL Protein, Total, P 7.7 6.3 - 7.9 g/dL Albumin, P 4.6 3.5 - 5.0 g/dL Aspartate Aminotransferase (AST), P 24 8 - 43 U/L Alkaline Phosphatase, P 55 35 - 104 U/L Alanine Aminotransferase (ALT), P 30 7 - 45 U/L Bilirubin, Total, P 0.3 0.0 - 1.2 mg/dL CBC with Differential, Blood Result Value Ref Range Hemoglobin 14.2 11.6 - 15.0 g/dL Hematocrit 43.7 35.5 - 44.9 % Erythrocytes 4.66 3.92 - 5.13 x10(12)/L MCV 93.8 78.2 - 97.9 fL RBC Distrib Width 12.2 12.2 - 16.1 % Platelet Count 238 157 - 371 x10(9)/L Leukocytes 7.1 3.4 - 9.6 x10(9)/L Neutrophils 4.48 1.56 - 6.45 x10(9)/L Lymphocytes 1.79 0.95 - 3.07 x10(9)/L Monocytes 0.44 0.26 - 0.81 x10(9)/L Eosinophils 0.37 0.03 - 0.48 x10(9)/L Basophils 0.04 0.01 - 0.08 x10(9)/L Lipid Panel Result Value Ref Range Triglycerides 163 (H) mg/dL Cholesterol, Total 178 mg/dL Cholesterol, LDL, Calculated 86 mg/dL Cholesterol, HDL 64 >=50 mg/dL Cholesterol, Non-HDL, Calculated 114 mg/dL Fasting (8 HR or more) Yes Pernicious Anemia Williamson Result Value Ref Range Vitamin B12 Assay, S 455 180 - 914 ng/L ASSESSMENT / PLAN 1. Radiculopathy Lumbar She has noticed improvement with Cymbalta 30mg daily and question if new side effect of diarrhea over last 1.5 weeks versus her normal. She would like to give it more time on the current dose and reassess. Could consider increase to 60mg daily in the future Recommend follow-up with spine regarding ongoing concerns regarding radiculopathy. She plans to follow-up with Gastroenterology regarding previously recommended GI studies. 2. Hypertension And Chronic Kidney Disease Stage 2 Blood pressure well controlled today on current regimen. I spent 33 minutes face to face and non-face to face caring for the patient today. Anne Campos MD 04/25/24 documented in this encounter Plan of Treatment Upcoming Encounters Date Type Department Care Team (Latest Contact Info) Description 06/12/2024 8:45 AM CDT Appointment Division of Gastroenterology in [place], [place] [address] [place] [phone] Nikky Causey M.D., M.P.H. [address] [place] [phone] 06/12/2024 10:45 AM CDT Appointment Division of Gastroenterology in [place], [place] [address] [place] [phone] Nikky Causey M.D., M.P.H. [address] [place] [phone] Kade Rios M.D. [address] [place] [phone] 06/14/2024 9:45 AM CDT Appointment Division of Gastroenterology in [place], [place] [address] [place] [phone] Nikky Causey M.D., M.P.H[facility] [address] [place] [phone] Discharge Disposition: Home or Self Care 06/20/2024 9:30 AM CDT Diagnostic Division of Pulmonary Medicine in [place], [place] [address] [place] [phone] Mina Quach M.D. [address] [place] [phone] 06/26/2024 9:00 AM CDT Office Visit Department of Cardiovascular Diseases in [address] [phone] Mina Quach M.D. [address] [place] [phone] 07/06/2024 8:30 AM CDT Appointment Department of Laboratory Medicine in [address] [phone] Anne Campos M.D. [address] [place] [phone] 07/06/2024 9:15 AM CDT Office Visit Department of Family Medicine, [facility], in [address] [phone] Anne Campos M.D. [address] [place] [phone] Discharge Disposition: Home or Self Care documented as of this encounter Visit Diagnoses Diagnosis Radiculopathy Lumbar- Primary Hypertension And Chronic Kidney Disease Stage 2 documented in this encounter Additional Health Concerns Assessment Noted Time PHQ-9 Depression Total Score: 6 09/03/20 14 2:09 PM CDT documented as of this encounter Care Teams Euclid Operator Relationship Specialty Start Date End Date Anne Campos M.D. [address] [place] [phone] PCP - General Family Medicine 04/23/22 [facility] 03/21/24 [facility] Ophthalmology 03/21/24 documented as of this encounter
--- OUTSIDE RECORDS SUMMARY | 2024-05-27 22:29 | XMS_ITS | Encounter Summary ---
Author Organization [facility] Address [address] [place] [address] Care Team Providers Care Aging Room Operator Name Role Phone Anne Campos M.D. Primary Care Provider [phone]- [phone] Reason for Referral * Outpatient (Routine) - Closed Specialty Diagnoses / Procedures Referred By Contac t Referred To Contact Diagnoses Dyspnea On Exertion Procedures DX Chest AP or PA and Lateral 2 Views Mina Quach M.D. [address] [place] [phone] [facility] Referral ID Status Reason Start Date Expiration Date Visits Re quested Visits Authorized [id number] Closed 05/21/2024 05/21/2025 1 1 Reason for Visit * Outpatient (Routine) - Closed Specialty Diagnoses / Procedures Referred By Contac t Referred To Contact Diagnoses Dyspnea On Exertion Procedures DX Chest AP or PA and Lateral 2 Views Mina Quach M.D. [address] [place] [phone] [facility] Referral ID Status Reason Start Date Expiration Date Visits Re quested Visits Authorized [id number] Closed 05/21/2024 05/21/2025 1 1 Encounter Details Date Type Department Care Team (Latest Contact Info) Description 05/21/2024 9:43 AM CDT - 05/21/2024 11:59 PM CDT Hospital Encounter Department of Radiology in [place], [place] [address] [place] [phone] Mina Quach M.D. [address] [place] [phone] Dyspnea On Exertion Discharge Disposition: Home or Self Care Social History Tobacco Use Types Packs/Day Years Used Date Smoking Tobacco: Former Cigarettes Q uit: 2004 Smokeless Tobacco: Never Alcohol Use Standard Drinks/Week Comments Not Currently 1 (1 standard drink = 0.6 oz pur e alcohol) rare [facility] Utilities Answer Date Recorded In the past 12 months has e electric, gas, oil, or water [employer] threatened to shut off services in your [...] How often do you attend chur or quaker services? More than 4 times per year 03/11/2023 Do you belong to any clubs o r organizations such as jewish groups, unions, fraternal or athletic groups, or [...] Answer Date Recorded PHQ-2 Score 0 03/14/2024 [facility] - Occupational Stress Questionnaire Answer Date Recorded [...] money to buy more. 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 09/06/2014 amLODIPine (NORVASC) 5 mg tabletIndications:Hyper tension Essential Primary Take 1 tablet (5 mg total) by mouth at bedtime. 90 tablet 3 09/13/2023 azelastine (ASTELIN) 137 mcg/spray (0.1 %) nasal spray Administer 2 sprays into each nostril 2 (two) times a day as needed. 07/17/2022 blood sugar diagnostic strips (Accu-Chek SmartView Test Strip)Indications:Diabe vivien Mellitus Type 2 With Diabetic Polyneuropathy (HCC) Test once daily. 100 each 3 09/13/2023 diclofenac sodium (VOLTAREN) 1 % gelIndications:Radiculo kaur Lumbar,Arthritis Hip Apply 2 g topically 4 (four) times a day. Apply to bilateral feet 450 g 3 09/13/2023 dulaglutide (Trulicity) 0.75 mg/0.5 mL injectionIndications:Di abetes Mellitus Type 2 With Diabetic Polyneuropathy (HCC) Inject 0.5 mL (0.75 mg total) under the skin every 7 (seven) days. 6 mL 3 09/13/2023 DULoxetine (CYMBALTA) [address] capsuleIndications:Diab etes Mellitus Type 2 With Diabetic Polyneuropathy (HCC) Take 1 capsule (30 mg total) by mouth daily. 90 capsule 3 03/21/2024 Farxiga 10 mg tabletIndications:Diabe vivien Mellitus Type 2 With Diabetic Polyneuropathy (HCC) Take 1 tablet (10 mg total) by mouth daily. 90 tablet 3 09/13/2023 glucosamine-chondroitin (GLUCOSAMINE-CHONDROITI N) 500-400 mg per capsuleIndications:Arth ritis Hip Take 2 capsules by mouth daily. 100 capsule 3 03/18/2023 Lactobacillus acidophilus 10 billion cell capsule Take by mouth. 06/01/2021 levothyroxine (SYNTHROID, LEVOTHROID) 88 mcg tablet Take 1 tablet (88 mcg total) by mouth every morning before breakfast. 90 tablet 3 10/18/2023 losartan (COZAAR) 50 mg tablet Take 1 tablet (50 mg total) by mouth daily. 90 tablet 3 09/13/2023 meloxicam (MOBIC) 15 mg tabletIndications:Radic ulopathy Lumbar Take 1 tablet (15 mg total) by mouth daily. 90 tablet 3 10/03/2023 omeprazole (PriLOSEC) [address] capsuleIndications:Mihai roesophageal Reflux Disease TAKE 1 CAPSULE(40 MG) BY MOUTH TWICE DAILY BEFORE BREAKFAST AND DINNER 180 capsule 3 02/20/2024 Restasis 0.05 % ophthalmic emulsion Administer 1 drop into both eyes 2 (two) times a day. 04/11/2024 rosuvastatin (CRESTOR) 20 mg tabletIndications:Hyper lipidemia Mixed Take 1 tablet (20 mg total) by mouth at bedtime. 90 tablet 3 09/13/2023 Stimulant Laxative Plus 8.6-50 mg per tabletIndications:Const ipation TAKE 1 TO 3 TABLETS BY MOUTH TWICE DAILY NEEDED FOR CONSTIPATION 100 tablet 3 04/18/2024 turmeric root extract 500 mg capsule Take by mouth. 08/12/2022 documented as of this encounter Plan of Treatment Upcoming Encounters Date Type Department Care Team (Latest Contact Info) Description 06/12/2024 8:45 AM CDT Appointment Division of Gastroenterology in [place], [place] [address] [place] [phone] Nikky Causey M.D[facility] M[facility]P.H[facility] [address] [place] [phone] 06/12/2024 10:45 AM CDT Appointment Division of Gastroenterology in [place], [place] [address] [place] [phone] Nikky Causey M.D[facility] [address] [place] [phone] Kade Rios M.D. [address] [place] [phone] 06/14/2024 9:45 AM CDT Appointment Division of Gastroenterology in [place], [place] [address] [place] [phone] Nikky [facility]y M[facility] [address] [place] [phone] Discharge Disposition: Home or Self Care 06/20/2024 9:30 AM CDT Diagnostic Division of Pulmonary Medicine in [place], [place] [address] [place] [phone] Mina Quach M.D. [address] [place] [phone] 06/26/2024 9:00 AM CDT Office Visit Department of Cardiovascular Diseases in [address] [phone] Mina Quach M.D. [address] [place] [phone] 07/06/2024 8:30 AM CDT Appointment Department of Laboratory Medicine in [address] [phone] Anne Campos M.D. [address] [place] [phone] 07/06/2024 9:15 AM CDT Office Visit Department of Family Medicine, [facility], in [address] [phone] Anne Campos M.D. [address] [place] [phone] Discharge Disposition: Home or Self Care documented as of this encounter Procedures Procedure Name Priority Date/Time Associated Diagnosis Comments DX CHEST AP OR PA AND LATERAL 2 VIEWS RAD - Routine (most inpatients and all outpatients) 05/21/2024 9:55 AM CDT Dyspnea On Exertion documented in this encounter Results * DX Chest AP or PA and Lateral 2 Views (05/21/2024 9:55 AM CDT) Anatomical Region Laterality Modality Chest, Thoracic RST LOS, Tho racic ARZ LOS, Thoracic FLA LOS N/A Digital Radiography Impressions 05/21/2024 10:27 AM CDT No evidence of acute cardiopulmonary abnormality. No focal pulmonary consolidation or pleural effusion. Normal heart size. No pneumothorax. Spondylosis. Aortic calcifications. Right shoulder degeneration. Postoperative changes left shoulder and lumbar spine. Comparison March 2023. Right upper abdominal surgical clips, typically related to prior cholecystectomy. Narrative 05/21/2024 10:27 AM CDT EXAM: DX CHEST AP OR PA AND LATERAL 2 VIEWS Procedure Note Caesar Mijares M.D. - 05/21/2024 EXAM: DX CHEST AP OR PA AND LATERAL 2 VIEWS IMPRESSION: No evidence of acute cardiopulmonary abnormality. No focal pulmonaryconsolidation or pleural effusion. Normal heart size. No pneumothorax.Spondylosis. Aortic calcifications. Right shoulder degeneration.Postoperative changes left shoulder and lumbar spine. Comparison March 2023. Right upper abdominal surgicalclips, typically related to prior cholecystectomy. Mina Quach M.D. [facility] PROCEDURES documented in this encounter Visit Diagnoses Diagnosis Dyspnea On Exertion documented in this encounter Additional Health Concerns Assessment Noted Time PHQ-9 Depression Total Score: 6 09/03/20 14 2:09 PM CDT documented as of this encounter Care Teams Aging Room Operator Relationship Specialty Start Date End Date Anne Campos M.D. [address] [place] [phone] PCP - General Family Medicine 04/23/22 [facility] 03/21/24 [facility] Ophthalmology 03/21/24 documented as of this encounter
--- OUTSIDE RECORDS SUMMARY | 2024-05-27 22:29 | XMS_ITS | Encounter Summary ---
Author Organization [facility] Address [address] [place] [address] Care Team Providers Care Oxygen Equipment Preparer Name Role Phone Anne Campos M.D. Primary Care Provider Reason for Visit * Reason Comments Medical cannabis enrollment Previous enr ollment expires 05/26/24. * Appointment Request (Routine) - Closed Specialty Diagnoses / Procedures Referred By Louie dominguez Referred To Contact Family Medicine Referral ID Status Reason Start Date Expiration Date Visits Re quested Visits Authorized [id number] Closed 04/12/2024 04/12/2025 1 1 Encounter Details Date Type Department Care Team (Late st Contact Info) Description 05/01/2024 3:30 PM CDT Office Visit Department of Family Medicine, [facility], in [address] [phone] Yoli Henley APRN, C.N.P., D.N.P. [address] [place] [phone] Chronic Pain Syndrome (Primary Dx); Radiculopathy Lumbar; Arthritis Hip Discharge Disposition: Home or Self Care Social History Tobacco Use Types Packs/Day Years Used Date Smoking Tobacco: Former Cigarettes Q uit: 2005 Smokeless Tobacco: Never Tobacco Cessation:Counseling Given: Not Answered Alcohol Use Standard Drinks/Week Comments Not Currently 1 (1 standard drink = 0.6 oz pur e alcohol) rare [facility] Utilities Answer Date Recorded In the past 12 months has e electric, gas, oil, or water company [...] any clubs o r organizations such as restorationist groups, unions, fraternal or athletic groups, or [...] Answer Date Recorded PHQ-2 Score 0 03/14/2024 [facility] Occupational Stress Questionnaire Answer Date [...] your [facility] situation today? [facility] 03/16/2024 Education Answer Date [...] Sign Reading Time Taken Comments Blood Pressure 153/81 05/01/2024 3:22 PM CDT Pulse 78 05/01/2024 3:21 PM CDT Temperature 37.1 ??C (98.8 ??F) 05/01/2024 3:21 PM CD T Respiratory Rate 16 05/01/2024 3:21 PM CDT Oxygen Saturation 96% 05/01/2024 3:21 PM CDT Inhaled Oxygen Concentration - - Weight 65.4 kg (144 lb 2.9 oz) 05/01/2024 3:21 P M CDT Height - - Body Mass Index 26.33 03/21/2024 9:42 AM CDT documented in this encounter Progress Notes * Yoli Henley, CHAVA, C.N.P., D.N.P. - 05/01/2024 3:30 PM CDT SUBJECTIVE CHIEF COMPLAINT/REASON FOR VISIT Sherice May is a 73 y.o. female who presents for evaluation of Medical cannabis enrollment (Previous enrollment expires 05/26/24. ). HISTORY OF PRESENT ILLNESS Sherice May presents for medical cannabis re certification. She reports that she has been using medical cannabis for the past year. She has had significant improvement in her chronic pain, particularly at night. She reports that she uses adjustable cannabis only. She reports no negative side effects from cannabis. OBJECTIVE PHYSICAL EXAMINATION Vital Signs: BP 153/81 (BP Location: Left arm, Patient Position: Sitting, Cuff Size: Regular) Pulse 78 Temp 37.1 ??C (Temporal) Resp 16 Wt 65.4 kg SpO2 96% BMI 26.33 kg/m?? Body mass index is 26.33 kg/m??. General: No acute distress. Psychiatric: Affect is appropriate. ASSESSMENT / PLAN #1 Chronic Pain Syndrome #2 Radiculopathy Lumbar #3 Arthritis Hip We reviewed the risks and benefits of medical cannabis. I provided a brief overview of the [place] medical cannabis program. I informed the patient that I do not prescribe medical cannabis, I only certify them for the condition that qualifies them underthe state program. I reminded them that medical cannabis remains illegal under federal law. I provided the patient with driving precautions with the use of medical cannabis as it can impair reaction times. We discussed how to discontinue medical cannabis if it is not beneficial or if they are experiencing side effects. We discussed the importance of continuing other symptom management strategies as medical cannabis needs to be part of a comprehensive symptom management strategy rather than a singular solution. We talked about opportunities for tapering off of medications. I mentioned that this is a 1 to 3 year certification. This will require a return office visit to review their condition. All questions were answered to the patient's satisfaction. Patient was instructed to follow up in primary care if symptoms are worsening or there is no improvement over the next several days. Plan was discussed with patient and is in agreement with plan. All questions were answered. Side effects of any/all new medications were discussed. Patient left in no acute distress. PATIENT EDUCATION: Ready to learn. No apparent learning barriers were identified. Learning preferences include listening. Explained diagnosis and treatment plan. Patient/Child/Caregiver expressed understanding of the content. Yoli Henley APRN, C.N.P., D.N.P. Total Time: 25 minutes. documented in this encounter Plan of Treatment Upcoming Encounters Date Type Department Care Team (Latest Contact Info) Description 06/12/2024 8:45 AM CDT Appointment Division of Gastroenterology in [place], [place] [address] [place] [phone] Nikky Causey M.D., M.P.H. [address] [place] [phone] 06/12/2024 10:45 AM CDT Appointment Division of Gastroenterology in [place], [place] [address] [place] [phone] Nikky Causey M.D., M.P.H. [address] [place] [phone] Kade Rios M.D. [address] [place] [phone] 06/14/2024 9:45 AM CDT Appointment Division of Gastroenterology in [place], [place] [address] [place] [phone] Nikky Causey M.D., M.P.H. [address] [place] [phone] Discharge Disposition: Home or Self Care 06/20/2024 9:30 AM CDT Diagnostic Division of Pulmonary Medicine in [place], [place] [address] [place] [phone] Mina Quach M.D. [address] [place] [phone] 06/26/2024 9:00 AM CDT Office Visit Department of Cardiovascular Diseases in [address] [phone] Mina Quach M.D. [address] [place] [phone] 07/06/2024 8:30 AM CDT Appointment Department of Laboratory Medicine in [address] [phone] Anne Campos M.D. [address] [place] [phone] 07/06/2024 9:15 AM CDT Office Visit Department of Family Medicine, [facility], in [address] [phone] Anne Campos M.D. [address] [place] [phone] Discharge Disposition: Home or Self Care documented as of this encounter Visit Diagnoses Diagnosis Chronic Pain Syndrome- Primary Radiculopathy Lumbar Arthritis Hip documented in this encounter Additional Health Concerns Assessment Noted Time PHQ-9 Depression Total Score: 6 09/03/20 14 2:09 PM CDT documented as of this encounter Care Teams Oxygen Equipment Preparer Relationship Specialty Start Date End Date Anne Campos M.D. NPKathleen: [phone] [address] [place], [place] [address] [phone] PCP - General Family Medicine 04/23/22 [facility] 03/21/24 [facility] Ophthalmology 03/21/24 documented as of this encounter
--- OUTSIDE RECORDS SUMMARY | 2024-05-27 22:29 | XMS_ITS | Referral Summary ---
Author Organization [facility] Address [address] [place] [address] Care Team Providers Care Reliability Technologist Name Role Phone Holli Hill M.D. Primary Care Provider [phone] Source Comments Patient records contain information from all sites at [facility]. For routine questions regarding patient records, call [phone] during business hours, M-F 8:00 AM - 5:00 PM Central Time. Record requests for emergency care only can be directed to [phone] at any time.[facility] Encounters Date Type Department Care Team Description 05/21/2024 9:43 AM CDT - 05/21/2024 11:59 PM CDT Hospital Encounter Department of Radiology in [address] [phone] Mina Quach M.D. Dyspnea On Exertion Discharge Disposition: Home or Self Care 05/21/2024 8:30 AM CDT Comprehensive Visit Department of Cardiovascular Diseases in [address] [phone] Mina Quach M.D. Dyspnea On Exertion (Primary Dx); Pain Chest; Atherosclerotic Heart Disease Of [place] Coronary Artery Without Angina Pectoris; Pain Low Back Chronic Discharge Disposition: Home or Self Care 05/01/2024 2:25 PM CDT - 05/01/2024 11:59 PM CDT Hospital Encounter Department of Radiology in [address] [phone] Holli Hill M.D. Screening Mammogram Breast Cancer Discharge Disposition: Home or Self Care 05/01/2024 3:30 PM CDT Office Visit Department of Family Medicine, [facility], in [address] [phone] Yoli Henley, CHAVA, C.N.P., D.N.P. Chronic Pain Syndrome (Primary Dx); Radiculopathy Lumbar; Arthritis Hip Discharge Disposition: Home or Self Care 04/26/2024 Clinical Communication Division of Gastroenterology in [place] [address] [place] [address] Nikky Causey M.D., M.P.H. 04/25/2024 4:00 PM CDT Office Visit Department of Family Medicine, [facility], in [address] [phone] Holli Hill M.D. Radiculopathy Lumbar (Primary Dx); Hypertension And Chronic Kidney Disease Stage 2 Discharge Disposition: Home or Self Care 04/19/2024 11:30 AM CDT Diagnostic Department of Neurology in [address] [phone] Lex Morris M.D. 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 Med Refill 03/21/2024 10:15 AM CDT Office Visit Department of Family Medicine, [facility], in [address] [phone] WoHolli thomas M.D. Olson, Beata E, R.N. Annual Medicare Examination Return (Primary Dx) Discharge Disposition: Home or Self Care 03/21/2024 8:52 AM CDT - 03/21/2024 11:59 PM CDT Hospital Encounter Department of Laboratory Medicine in [address] [phone] Holli Hill M.D. 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 Screening Mammogram Breast Cancer 02/26/2024 Refill Division of Gastroenterology in [address] [phone] Nikky Causey M.D., M.P.H. Med Refill from Last 3 Months Allergies Active Allergy Reactions Criticality Noted Date Comments House Dust Mite Other (see comments) 05/27/2010 RUNNING NOSE EYE ITCHING RUNNING NOSE EYE ITCHING Hydrochlorothiazide Other (see comments) 2018 Hydrocodone GI intolerance High 03/17/2023 Hydrocodone-Acetaminophen Nausea Only,Na usea And Vomiting 08/25/2007 And vomiting Mold Other (see comments) 08/28/2013 PN: gets allergy shots PN: gets allergy shots Oxycodone GI intolerance High 03/17/2023 Pravastatin Myalgia 05/26/2010 Ragweed Other (see comments) 08/28/2013 [place]on Pollen-Short Ragweed Anaphylaxis,Ot her (see comments) High 07/03/2015 PN: gets allergy shots PN: gets allergy shots PN: gets allergy shots PN: gets allergy shots Medications Medication Sig Dispensed Refills Start Date End Date Status acetaminophen (TYLENOL) 500 mg tablet Take 1-2 tablets by mouth every 6 (six) hours as needed. 09/06/2014 Active azelastine (ASTELIN) 137 mcg/spray (0.1 %) nasal spray Administer 2 sprays into each nostril 2 (two) times a day as needed. 07/17/2022 Active Lactobacillus acidophilus 10 billion cell capsule Take by mouth. 06/01/2021 Active turmeric root extract 500 mg capsule Take by mouth. 08/12/2022 Active glucosamine-chondroi tin (GLUCOSAMINE-CHONDRO ITIN) 500-400 mg per capsuleIndications:A rthritis Hip Take 2 capsules by mouth daily. 100 capsule 3 03/18/2023 Active rosuvastatin (CRESTOR) 20 mg tabletIndications:Hy perlipidemia Mixed Take 1 tablet (20 mg total) by mouth at bedtime. 90 tablet 3 09/13/2023 Active losartan (COZAAR) 50 mg tablet Take 1 tablet (50 mg total) by mouth daily. 90 tablet 3 09/13/2023 Active Farxiga 10 mg tabletIndications:Di abetes Mellitus Type 2 With Diabetic Polyneuropathy (HCC) Take 1 tablet (10 mg total) by mouth daily. 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 6 mL 3 09/13/2023 Active diclofenac sodium (VOLTAREN) 1 % gelIndications:Radic ulopathy Lumbar,Arthritis Hip Apply 2 g topically 4 (four) times a day. Apply to bilateral feet 450 g 3 09/13/2023 Active blood sugar diagnostic strips (Accu-Chek SmartView Test Strip)Indications:Di abetes Mellitus Type 2 With Diabetic Polyneuropathy (HCC) Test once daily. 100 each 3 09/13/2023 Active amLODIPine (NORVASC) 5 mg tabletIndications:Hy pertension Essential Primary Take 1 tablet (5 mg total) by mouth at bedtime. 90 tablet 3 09/13/2023 Active meloxicam (MOBIC) 15 mg tabletIndications:Ra diculopathy Lumbar Take 1 tablet (15 mg total) by mouth daily. 90 tablet 3 10/03/2023 Active levothyroxine (SYNTHROID, LEVOTHROID) 88 mcg tablet Take 1 tablet (88 mcg total) by mouth every morning before breakfast. 90 tablet 3 10/18/2023 Active Accu-Chek Fastclix Lancet DrumIndications:Diab etes Mellitus Type 2 With Diabetic Polyneuropathy (HCC) USE ONCE DAILY TO CHECK BLOOD SUGARS 100 each 3 02/16/2024 Active omeprazole (PriLOSEC) [address] capsuleIndications:G astroesophageal Reflux Disease TAKE 1 CAPSULE(40 MG) BY MOUTH TWICE DAILY BEFORE BREAKFAST AND DINNER 180 capsule 3 02/20/2024 Active DULoxetine (CYMBALTA) [address] capsuleIndications:D iabetes Mellitus Type 2 With Diabetic Polyneuropathy (HCC) Take 1 capsule (30 mg total) by mouth daily. 90 capsule 3 03/21/2024 Active Stimulant Laxative Plus 8.6-50 mg per tabletIndications:Co nstipation TAKE 1 TO 3 TABLETS BY MOUTH TWICE DAILY NEEDED FOR CONSTIPATION 100 tablet 3 04/18/2024 Active Restasis 0.05 % ophthalmic emulsion Administer 1 drop into both eyes 2 (two) times a day. 04/11/2024 Active DULoxetine (Cymbalta) [address] capsule Take 1 capsule (60 mg total) by mouth daily. 30 capsule 11 05/23/2024 Active Active Problems Problem Noted Date Diagnosed Date Pain Low Back Chronic 05/21/2024 Dyspnea On Exertion 05/21/2024 Dysphagia 04/26/2024 Diabetes Mellitus Type 2 Neuropathy Autonomic Gastroesophageal Reflux Disease 05/19/2023 Atherosclerotic Heart Diseas e Of [place] Coronary Artery Without Angina Pectoris 05/19/2023 Hyperlipidemia Mixed 05/06/2022 Nevus Pigmented 03/08/2022 Idiopathic Gout Multiple Sites 03/08/2022 Cataract Senile Cortical Left 03/08/2022 Radiculopathy Lumbar 03/19/2020 Hypertension And Chronic Kidney Disease Stage 2 03/19/2020 Spondylolisthesis Lumbar Region 04/12/2019 Hypothyroidism 03/25/2017 Diabetes Mellitus Type 2 With Diabetic Polyneuro kaur 03/25/2017 Carpal Tunnel Syndrome Right 03/25/2017 Presence Of Left Artificial Hip Joint 02/18/2017 Arthritis Hip 06/30/2016 Resolved Problems Problem Noted Date Diagnosed Date Resolved Date Fatigue 03/08/2022 03/29/2023 Hypoxemia 03/21/2020 03/29/2023 Immunizations Name Administration Dates Next Due HZV (ZOSTAVAX) 09/30/2015 Influenza high dose QV(65 ye ars or older) (PF) 08/17/2022 Influenza, Injectable, Quadrivalent 10/14/2016,1 11/30/2014,02/13/2015 Influenza, Quadrivalent, Adj uvanted, Preservative Free 11/24/2021 Influenza, Seasonal, Injectable 10/18/2017 Influenza, Unspecified 03/21/2024(Deferr ed: Patient Refused),11/24/2021,10/18/2017,10/14/20 16,09/30/2015,02/13/2015 PCV13 04/11/2014 PPSV23 03/15/2022,11/14/2019,08/02/2019 RZV (SHINGRIX) 11/28/2019,10/03/2019 SARS-COV-2 (COVID-19) - MODERNA(Discontinued) 03/21/2024(Deferred: Patient Refused) SARS-COV-2 (COVID-19) - PFIZ ER (Discontinued)(12 years or older) 09/15/2021 SARS-COV-2 (COVID-19) - PFIZ ER BIVALENT TS(Discontinued)(12 YEARS OR OLDER) 08/17/2022 Td (Adult), adsorbed 12/04/1996 Tdap 02/26/2016,03/13/2013,11/14/2012 influenza high dose (65 year s or older) (PF) 08/02/2019,10/14/2016,09/30/2015,2014 influenza vaccine quad (FLUZONE/FLUARIX) (6 months and older)(PF) 10/14/2016,09/30/2015,02/13/2015 Social History Tobacco Use Types Packs/Day Years Used Date Smoking Tobacco: Former Cigarettes Q uit: 2005 Smokeless Tobacco: Never Tobacco Cessation:Counseling Given: Not Answered Alcohol Use Standard Drinks/Week Comments Not Currently 1 (1 standard drink = 0.6 oz pur e alcohol) rare [facility] Utilities Answer Date Recorded In the [...] 03/11/2023 How often do you attend chur ch or anglican services? More than 4 times per year 03/11/2023 Do you belong to any clubs o r organizations such as pentecostal groups, unions, fraternal or athletic groups, or [...] Answer Date Recorded PHQ-2 Score 0 03/14/2024 [facility] - Occupational Stress Questionnaire Answer Date Recorded [...] your living situation today? I have a [facility] place to live 03/16/2024 Education Answer Date Recorded What is the highest level of school you have completed or the highest degree you have received? 12th grade 05/03/2022 Sex and Gender Information Value Date Recorded Sex Assigned at Female 05/03/2022 10:54 AM CDT Gender Identity Female 05/03/2022 10:54 AM CDT Sexual Orientation Straight 05/03/2022 10 :54 AM CDT Last Filed Vital Signs Vital Sign Reading Time Taken Comments Blood Pressure 151/74 05/21/2024 8:21 AM CDT Pulse 79 05/21/2024 8:21 AM CDT Temperature 37.1 ??C (98.8 ??F) 05/01/2024 3:21 PM CD T Respiratory Rate 16 05/01/2024 3:21 PM CDT Oxygen Saturation 96% 05/01/2024 3:21 PM CDT Inhaled Oxygen Concentration - - Weight 64.5 kg (142 lb 3.2 oz) 05/21/2024 8:19 A M CDT Height 157.6 cm (5' 2.05) 03/21/2024 9:42 AM CD T Body Mass Index 25.97 03/21/2024 9:42 AM CDT Plan of Treatment Upcoming Encounters Date Type Department Care Team (Latest Contact Info) Description 06/12/2024 8:45 AM CDT Appointment Division of Gastroenterology in [place], [place] [address] [place] [phone] Nikky Causey M.D., M.P.H. [address] [place] [phone] 06/12/2024 10:45 AM CDT Appointment Division of Gastroenterology in [address] [phone] Nikky Causey M.D., M.P.H. [address] [place] [phone] Kade Rios M.D. [address] [place] [phone] 06/14/2024 9:45 AM CDT Appointment Division of Gastroenterology in [place], [place] [address] [place] [phone] Nikky Causey M.D., M.P.H. [address] [place] [phone] Discharge Disposition: Home or Self Care 06/20/2024 9:30 AM CDT Diagnostic Division of Pulmonary Medicine in [place], [place] [address] [place] [address] Mina Quach M.D. [address] [place] [phone] 06/26/2024 9:00 AM CDT Office Visit Department of Cardiovascular Diseases in [address] [phone] Mina Quach M.D. [address] [place] [phone] 07/06/2024 8:30 AM CDT Appointment Department of Laboratory Medicine in [address] [phone] Holli Hill M.D. [address] [place] [phone] 07/06/2024 9:15 AM CDT Office Visit Department of Family Medicine, [facility], in [address] [phone] Holli Hill M.D. [address] [place] [phone] Discharge Disposition: Home or Self Care Medical Devices Implanted Type Area Spindle Sander Device Identifier Shelf Expiration Date Model / Serial / Lot Femoral Head - [employer]utton [id number] Implanted:Qty: 1 on 09/04/2014 Bone or Tissue Other/Legacy - See Implant Description [employer] Description:Device Manufactu rer - [employer]. Body Location - ?. spine fusion. Device Status Text - [id number]. Hip Implant-06/30/20 16 Implanted:06/30 (Quantity not on file) Hip Implant Left: Hip Hip Implant- 021 Implanted:08/26 (Quantity not on file) Hip Implant Right: Hip Knee Implant Knee Implant Right: Knee Spine Implant-05/06/20 00 Implanted:05/06 (Quantity not on file) Spine Implant Back Procedures Procedure Name Priority Date/Time Associated Diagnosis Comments DX CHEST AP OR PA AND LATERAL 2 VIEWS RAD - Routine (most inpatients and all outpatients) 05/21/2024 9:55 AM CDT Dyspnea On Exertion BI BREAST SCREENING BILATERAL WITH TOMOSYNTHESIS RAD - Routine (most inpatients and all outpatients) 05/01/2024 2:36 PM CDT Screening Mammogram Breast Cancer EMG Routine 04/19/2024 12:05 PM CDT 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) ECG Routine 03/21/2024 10:20 AM CDT Dyspnea On Exertion Pain Chest PERNICIOUS ANEMIA CASCADE, S Routine 03/21/2024 9:07 AM CDT Macrocytosis THYROID-STIMULATING HORMONE-SENSITIVE (S-TSH) Routine 03/21/2024 9:07 AM CDT Hypothyroidism LIPID PANEL, S Routine 03/21/2024 9:06 AM CDT Hyperlipidemia Mixed CBC WITH DIFFERENTIAL, B Routine 03/21/2024 9:06 AM CDT Hypothyroidism COMPREHENSIVE METABOLIC PANEL, S/P Routine 03/21/2024 9:06 AM CDT 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) Hyperlipidemia Mixed HEMOGLOBIN A1C, B Routine 03/21/2024 9:0 6 AM CDT 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 IMRosangela DIAGNOSTIC TOÑA GING PROCEDURES * BI Breast Screening Bilateral with Tomosynthesis (05/01/2024 2:36 PM CDT) Anatomical Region Laterality Modality Breast, Breast Imaging RST L OS, Breast Imaging ARZ LOS, Breast Imaging FLA LOS Bilateral Mammography Impressions 05/01/2024 3:03 PM CDT Negative. RECOMMENDATION: ??Annual Screening Mammogram ASSESSMENT: ??BI-RADS: 1: Negative. Narrative 05/01/2024 3:03 PM CDT EXAM: ??BI BREAST SCREENING BILATERAL WITH TOMOSYNTHESIS Current study was evaluated with a Computer Aided Detection (CAD) system. INDICATION: ??Screening mammogram. COMPARISON: ??Prior exam(s) were available and reviewed for comparison. DENSITY: ??b. There are scattered areas of fibroglandular density. FINDINGS: ??No mammographic findings of malignancy. Procedure Note Darlene Smallwood D.O. - 05/01/2024 EXAM: BI BREAST SCREENING BILATERAL WITH TOMOSYNTHESIS Current study was evaluated with a Computer Aided Detection (CAD) system. INDICATION: Screening mammogram. COMPARISON: Prior exam(s) were available and reviewed for comparison. DENSITY: b. There are scattered areas of fibroglandular density. FINDINGS: No mammographic findings of malignancy. IMPRESSION: Negative. RECOMMENDATION: Annual Screening Mammogram ASSESSMENT: BI-RADS: 1: Negative. Holli Hill M.D. IMG BI PROCEDURES * EMG (04/19/2024 12:05 PM CDT) 04/19/2024 11:3 0 AM CDT Narrative EMG - 04/19/2024 11:46 AM CDT Table formatting from the original result was not included. 19-Apr-2024 ? Electromyography ? Final Report Study Number: [id number] EMG Development And Housing Director: Ernesto Morris 127 or [phone] Referred by: HOLLI HILL () Referred for: peripheral neuropathy Referral Code: RX: [id number] ??335 SUMMARY: Prior to starting the procedure, the patient's identity was verified, pertinent available records were reviewed, the nature of the procedure was explained, the appropriate sites of the exam were confirmed directly with the patient, and a pre-procedure pause was performed for final verification of all of the above. ?? Nerve conduction studies showed low amplitude left fibular compound muscle action potential where there was slowed conduction velocity. ??The left fibular F-wave was poorly reproducible. ??The left tibial F-wave was of normal latencies. ??There was no temporal dispersion or focal conduction block present. ??Needle examination of the left lower limb showed chronic appearing, long duration high amplitude motor unit potentials and reduced recruitment in left L5 greater than L4 innervated muscles. ??There were borderline long duration motor unit potentials in the left gastrocnemius with normal recruitment. ??There were no fibrillation potentials present. ?? There was a single complex repetitive discharge isolated to the left tibialis anterior. CLINICAL INTERPRETATION: This is an abnormal study. ??There is electrophysiologic evidence of chronic left L4 and L5 radiculopathies without uncompensated denervation. ??A superimposed mild, distal left L5 radiculopathy can not be completely excluded. ??There is no definite electrophysiologic evidence of a length-dependent large fiber peripheral neuropathy on this study. N. Seven ([phone] or [phone]) NERVE CONDUCTIONS ??Record Rep ?? Normal ??Normal Distal Normal F-Wave F-Wave Temp Nerve Type Site Stim Side Amp Amp CV CV Lat Lat Lat Est (??C) Fibular Motor EDB ??L 1.3 (> 2.0) 35 (> 41) 6.4 (< 6.6) 49.6 ??31.9 Tibial Motor AH ??L 5.3 (> 4.0) 40 (> 40) 3.6 (< 6.1) 54.4 55.6 31.4 Sural Sensory Ankle ??L 7 (> 0.0) 53 (> 40) 4.0 (< 4.5) ?? 30.1 NEEDLE EMG ??Ins Spont MUP ??Recruitment Duration Amplitude Phases Muscle Side Act Fib Fasc Normal Activ Reduced Rapid Long Short High Low % Turns Gluteus mauro L NL 0 0 NL ? Tensor fasciae latae L NL 0 0 ?? ++ ??+ ??+ ? Vastus medialis L NL 0 0 ?? + ??+ ??+ ? Gastrocnemius (medial head) L NL 0 0 ? +/- ??+/- ? Tibialis anterior L INC 0 0 ?? ++ ??++ ??++ ? Comment: CRD Adductor longus L NL 0 0 NL ? This interpretation has been electronically signed: Ernesto Morris M.D. at 04/19/2024 11:45:58 AM CDT Holli Hill M.D. NEUROLOGY ORDERABLE S EMG * ECG 12 Lead (03/21/2024 10:20 AM CDT) Ventricular Rate ECG/Min 70 BPM MUSE SC Interval 146 ms MUSE QRSD Interval 76 ms MUSE QT Interval 408 ms MUSE QTC Interval 440 ms MUSE P [place] 49 degrees MUSE R [place] 63 degrees MUSE T Wave [place] 7 degrees MUSE 03/21/2024 10:2 0 AM CDT 03/21/2024 10:48 AM CDT Impressions MUSE - 03/21/2024 10:48 AM CDT Normal sinus rhythm Left atrial enlargement T wave abnormality, consider inferior ischemia When compared with ECG of 29-Mar-2023 11:33, No significant change was found Reviewed by AIMEE Longoria Narrative Procedure Note Gómez Mauricio M.D., M.P.H. - 03/21/2024 IMPRESSION: Normal sinus rhythm Left atrial enlargement T wave abnormality, consider inferior ischemia When compared with ECG of 29-Mar-2023 11:33, No significant change was found Reviewed by AIMEE Longoria Holli Hill M.D. ECG ORDERABLES Performing Organization Address [facility] de Phone Number [place] [facility] * Pernicious Anemia [place] (03/21/2024 9:07 AM CDT) Vitamin B12 Assay, S 455 180 - 914 ng/L 03/22/2024 10:24 AM CDT [facility] Blood (Blood, Venous) 03/21/2024 9:07 AM CDT 03/22/2024 7:50 AM CDT Narrative [facility] - 03/22/2024 10:24 AM CDT Specimen Information: Specimen ID: [id number] Specimen Type: Blood Specimen Collection Start Date: 03/21/2024 ??9:07 AM Specimen Received Date: 03/22/2024 ??7:50 AM Specimen ID: [id number] Specimen Type: Blood Specimen Collection Start Date: 03/21/2024 ??9:07 AM Specimen Received Date: 03/22/2024 ??7:54 AM Holli Hill M.D. LAB BLOOD NON ADD-O N [facility] [address] [place] [address] [facility] [address] [place] [address] * S-TSH (Thyroid-Stimulating Hormone - Sensitive) (03/21/2024 9:07 AM CDT) TSH, Sensitive 1.2 0.3 - 4.2 mIU/L 03/21/2024 9:40 AM CDT CNFL Blood (Blood, Venous) 03/21/2024 9:07 AM CDT 03/21/2024 9:08 AM CDT Holli Hill M.D. LAB BLOOD ADD-ON Performing Organization Address City/[facility]/ZIP Co de Phone Number [facility] [address] [place] [address], [facility] [place] [address] * (ABNORMAL) Lipid Panel (03/21/2024 9:06 AM CDT) Triglycerides 163(H) mg/dL 03/21/2024 9:33 AM CDT [place] Comment: ----REFERENCE VALUE---- Normal: <150 mg/dL Borderline High: 150-199 mg/dL High: 200-499 mg/dL Very High: > or =500 mg/dL Cholesterol, Total 178 mg/dL 2023 9:33 AM CDT [place] Comment: ----REFERENCE VALUE---- Desirable: < 200 mg/dL Borderline High: 200 - 239 mg/dL High: > or = 240 mg/dL Cholesterol, LDL, Calculated 86 mg/dL 03/21/2024 9:33 AM CDT [facility] Comment: ----REFERENCE VALUE---- Desirable: <100 mg/dL Above Desirable: 100-129 mg/dL Borderline High: 130-159 mg/dL High: 160-189 mg/dL Very High: >=190 mg/dL ----ADDITIONAL INFORMATION---- LDL cholesterol calculated using the Tran/NIH equation. Cholesterol, HDL 64 >=50 mg/dL 03/21/20 9:33 AM CDT [facility]FL Cholesterol, Non-HDL, Calculated 114 mg/dL 03/21/2024 9:33 AM CDT [facility] Comment: ----REFERENCE VALUE---- Desirable: <130 mg/dL Above Desirable: 130-159 mg/dL Borderline High: 160-189 mg/dL High: 190-219 mg/dL Very High: > or =220 mg/dL Fasting (8 HR or more) Yes 03/21/2024 9:08 AM CDT [facility] Blood (Blood, Venous) 03/21/2024 9:06 AM CDT 03/21/2024 9:08 AM CDT Holli Hill M.D. LAB BLOOD ADD-ON [facility] [address] [place] [address], [facility] [place] [address] * CBC with Differential, Blood (03/21/2024 9:06 AM CDT) Hemoglobin 14.2 11.6 - 15.0 g/dL 03/21/2024 9:13 AM CDT [facility]FL Hematocrit 43.7 35.5 - 44.9 % 03/21/2024 9:13 AM CDT [facility] Erythrocytes 4.66 3.92 - 5.13 x10(12)/L 03/21/2024 9:13 AM CDT [facility] MCV 93.8 78.2 - 97.9 fL 03/21/2024 9:13 AM CDT [facility] RBC Distrib Width 12.2 12.2 - 16.1 % 03/21/2024 9:13 AM CDT CN[facility] Platelet Count 238 157 - 371 x10(9)/L 03/21/2024 9:13 AM CDT [facility] Leukocytes 7.1 3.4 - 9.6 x10(9)/L 03/21/2024 9:13 AM CDT CNFL Neutrophils 4.48 1.56 - 6.45 x10(9)/L 03/21/2024 9:13 AM CDT CNFL Lymphocytes 1.79 0.95 - 3.07 x10(9)/L 03/21/2024 9:13 AM CDT CNFL Monocytes 0.44 0.26 - 0.81 x10(9)/L 03/21/2024 9:13 AM CDT CNFL Eosinophils 0.37 0.03 - 0.48 x10(9)/L 03/21/2024 9:13 AM CDT CNFL Basophils 0.04 0.01 - 0.08 x10(9)/L 03/21/2024 9:13 AM CDT CN[facility] Blood (Blood, Venous) 03/21/2024 9:06 AM CDT 03/21/2024 9:08 AM CDT Holli Hill M.D. LAB BLOOD ADD-ON [facility] [address] [place] [address], [place] [address] * (ABNORMAL) Hemoglobin A1c (03/21/2024 9:06 AM CDT) Hemoglobin A1c, B 6.8(H) 4.2 - 5.6 % 03/21/2024 9:23 AM CDT CNFL Comment: Hemoglobin A1c values greater than or equal to 6.5 percent are diagnostic for diabetes mellitus. ??Diagnosis should be confirmed by repeat testing. ??In diabetic patients, HbA1c goals should be discussed with healthcare provider. Blood (Blood, Venous) 03/21/2024 9:06 AM CDT 03/21/2024 9:08 AM CDT Holli Hill M.D. LAB BLOOD ADD-ON [facility] [address] [place] [id number], [facility] CNFL [facility] in [address] [address] * (ABNORMAL) Comprehensive Metabolic Panel (03/21/2024 9:06 AM CDT) Potassium, P 4.2 3.6 - 5.2 mmol/L 03/21/2024 9:33 AM CDT CNFL Sodium, P 141 135 - 145 mmol/L 03/21/2024 9:33 AM CDT CNFL Chloride, P 103 98 - 107 mmol/L 03/21/2024 9:33 AM CDT CNFL Bicarbonate, P 25 22 - 29 mmol/L 03/21/2024 9:33 AM CDT CNFL Anion Gap, P 13 7 - 15 03/21/2024 9:33 AM CDT CNFL BUN (Blood Urea Nitrogen), P 23(H) 6 - 21 mg/dL 03/21/2024 9:33 AM CDT CNFL Creatinine 0.73 0.59 - 1.04 mg/dL 03/21/2024 9:33 AM CDT CNFL Estimated GFR (eGFR) 86 >=60 mL/min/BS A 03/21/2024 9:33 AM CDT CNFL Comment: Estimated GFR calculated using the 2020 CKD_EPI creatinine equation. Calcium, Total, P 9.6 8.8 - 10.2 mg/dL 03/21/2024 9:33 AM CDT CNFL Glucose, P 142(H) 70 - 140 mg/dL 03/21/2024 9:33 AM CDT CNFL Protein, Total, P 7.7 6.3 - 7.9 g/dL 03/21/2024 9:33 AM CDT CNFL Albumin, P 4.6 3.5 - 5.0 g/dL 03/21/2024 9:33 AM CDT CNFL Aspartate Aminotransferase (AST), P 24 8 - 43 U/L 03/21/2024 9:33 AM CDT CNFL Alkaline Phosphatase, P 55 35 - 104 U/L 03/21/2024 9:33 AM CDT CNFL Alanine Aminotransferase (ALT), P 30 7 - 45 U/L 03/21/2024 9:33 AM CDT CNFL Bilirubin, Total, P 0.3 0.0 - 1.2 mg/dL 03/21/2024 9:33 AM CDT CNFL Blood (Blood, Venous) 03/21/2024 9:06 AM CDT 03/21/2024 9:08 AM CDT Holli Hill M.D. LAB BLOOD ADD-ON [facility] [address] [place] [phone], [facility] CNFL [place] [address] * Albumin, Random, Urine (09/13/2023 8:53 AM CDT) Microalbumin 19.5 mg/L 09/13/2023 9:07 AM CDT CNFL Creatinine 113 mg/dL 09/13/2023 9:07 AM CDT CNFL Albumin/Creatinin e Ratio 17 <25 mg/g 09/13/2023 9:07 AM CDT CNFL Urine (Urine, Midstream) 09/13/2023 8:53 AM CDT 09/13/2023 8:53 AM CDT Holli Hill M.D. LAB URINE ORDERABLE S [facility] [address] [place] [phone], [facility] [place] [address] from Last 3 Months or Most Recently Relevant to Health Maintenance Care Teams Reliability Technologist Relationship Specialty Start Date End Date Holli Hill M.D. [address] [place] [address] [phone] PCP - General Family Medicine 04/23/22 [facility] [place] [facility] 03/21/24 [facility] Ophthalmology 03/21/24
--- OUTSIDE RECORDS SUMMARY | 2024-05-27 22:29 | XMS_ITS | Clinical Summary ---
Author Organization [facility] Address [address] [place] [address] Care Team Providers Care Aluminum Shingle Roofer Name Role Phone Holli Campos M.D. Primary Care Provider [phone] Source Comments Patient records contain information from all sites at [facility]. For routine questions regarding patient records, call [phone] during business hours, M-F 8:00 AM - 5:00 PM Central Time. Record requests for emergency care only can be directed to [phone] at any time.[facility] Allergies Active Allergy Reactions Criticality Noted Date [...] Myalgia 05/26/2010 Ragweed Other (see comments) 08/28/2013 Lucernemines Pollen-Short Ragweed Anaphylaxis,Ot her (see comments) High [...] Disease 05/19/2023 Atherosclerotic Heart Diseas e Of [place] Coronary Artery Without Angina Pectoris 05/19/2023 Hyperlipidemia [...] Date Fatigue 03/08/2022 03/29/2023 Hypoxemia 03/21/2020 03/29/2023 Encounters Date Type Department Care Team Description 05/21/2024 9:43 AM CDT - 05/21/2024 11:59 PM CDT Hospital Encounter Department of Radiology in [address] [phone] Mina Quach M.D. Dyspnea On Exertion Discharge Disposition: Home or Self Care 05/21/2024 8:30 AM CDT Comprehensive Visit Department of Cardiovascular Diseases in [address] [phone] Mina Quach M.D. Dyspnea On Exertion (Primary Dx); Pain Chest; Atherosclerotic Heart Disease Of [place] Coronary Artery Without Angina Pectoris; Pain Low Back Chronic Discharge Disposition: Home or Self Care 05/01/2024 3:30 PM CDT Office Visit Department of Family Medicine, [facility], [address] [phone] Yoli Henley APRN, C.N.P., D.N.P. Chronic Pain Syndrome (Primary Dx); Radiculopathy Lumbar; Arthritis Hip Discharge Disposition: Home or Self Care 05/01/2024 2:25 PM CDT - 05/01/2024 11:59 PM CDT Hospital Encounter Department of Radiology in [address] [phone] Holli Campos M.D. Screening Mammogram Breast Cancer Discharge Disposition: Home or Self Care 04/26/2024 Clinical Communication Division of Gastroenterology in [address] [phone] Nikky Causey M.D., M.P.H. 04/25/2024 4:00 PM CDT Office Visit Department of Family Medicine, [facility], [address] [phone] Holli Campos M.D. Radiculopathy Lumbar (Primary Dx); Hypertension And Chronic Kidney Disease Stage 2 Discharge Disposition: Home or Self Care 04/19/2024 11:30 AM CDT Diagnostic Department of Neurology in [address] [phone] Lex Morris M.D. 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 Med Refill 03/21/2024 10:15 AM CDT Office Visit Department of Family Medicine, [facility], [address] [phone] Holli Campos M.D. Olson, Beata E, R.N. Annual Medicare Examination Return (Primary Dx) Discharge Disposition: Home or Self Care 03/21/2024 9:45 AM CDT Office Visit Department of Family Medicine, [facility], in [address] [phone] Holli Campos M.D. 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 Screening Mammogram Breast Cancer 02/26/2024 Refill Division of Gastroenterology in [place], [place] [address] [place] [address] Nikky Causey M.D., M.P.H. Med Refill from Last 3 Months Immunizations Name Administration Dates Next Due HZV [...] quad (FLUZONE/FLUARIX) (6 months and older)(PF) 10/14/2016,09/30/2015,02/13/2015 Family History Medical History Relation Name Comments Coronary artery disease Brother Miles Dawson Breast cancer Sister 1 Breast cancer Sister 2 Relation Name Status Comments Brother Miles Dawson Sister 1 Sister 2 Alive Social History Tobacco Use Types Packs/Day Years Used Date Smoking Tobacco: Former Cigarettes Q uit: 2005 Smokeless Tobacco: Never Tobacco Cessation:Counseling Given: Not Answered Alcohol Use Standard Drinks/Week Comments Not Currently 1 (1 standard drink = 0.6 oz pur e alcohol) rare [facility] Utilities Answer Date Recorded In the [...] How often do you attend chur or jewish services? More than 4 times per year 03/11/2023 Do you belong to any clubs o r organizations such as latter-day groups, unions, fraternal or athletic groups, or [...] Answer Date Recorded PHQ-2 Score 0 03/14/2024 [facility] - Occupational Stress Questionnaire Answer Date Recorded [...] AM CDT Appointment Division of Gastroenterology in [place], [place] [address] [place] [phone] Nikky Causey M.D., M.P.H. [address] [place] [phone] 06/12/2024 10:45 AM CDT Appointment Division of Gastroenterology in [place], [place] [address] [place] [phone] Nikky Causey M.D., M.P.H. [address] [place] [phone] Kade Rios M.D. [address] [place] [phone] 06/14/2024 9:45 AM CDT Appointment Division of Gastroenterology in [place], [place] [address] [place] [phone] Nikky Causey M.D., M.P.H. [address] [place] [phone] Discharge Disposition: Home or Self Care 06/20/2024 9:30 AM CDT Diagnostic Division of Pulmonary Medicine in [place], [place] [address] [place] [address] Mina Quach M.D. [address] [place] [phone] 06/26/2024 9:00 AM CDT Office Visit Department of Cardiovascular Diseases in [address] [phone] Mina Quach M.D. [address] [place] [phone] 07/06/2024 8:30 AM CDT Appointment Department of Laboratory Medicine in [address] [phone] Holli Campos M.D. [address] [place] [phone] 07/06/2024 9:15 AM CDT Office Visit Department of Family Medicine, [facility], in [address] [phone] Holli Campos M.D. [address] [place] [phone] Discharge Disposition: Home or Self Care Health Maintenance Due Date Last Done Comments CT Colonography 1948 Cologuard 1950 FIT 1950 Hepatitis B Vaccines (1 of 3 - Risk 3-dose series) 2008 COVID-19 Vaccine (7 - 2023-24 season) 2023 08/17/2022, 05/03/2022, 10/16/2021, Additional history exists Diabetic Office Visit with Foot Exam 03/18/2024 03/18/2023 Influenza Vaccine (#1) 2024 , 11/24/2021, 11/24/2021, Additional history exists Office Visit for Blood Pressure Check / Re-check 08/21/2024 05/21/2024 Dilated Eye Exam 09/12/2024 09/12/2023 (Per formed elsewhere), 09/08/2022 (Performed elsewhere), 09/23/1994 Urine Albumin 09/13/2024 09/13/2023, 09/07/2022 Hemoglobin A1C 09/21/2024 03/21/2024, 08/16, 06/14/2023, Additional history exists Creatinine Level (Kidney Function Test) 03/21/2025 03/21/2024, 05/27/2023, 03/18/2023, Additional history exists Potassium Level 03/21/2025 03/21/2024, 05/14, 03/18/2023, Additional history exists Sodium Level 03/21/2025 03/21/2024, 05/14, 03/18/2023, Additional history exists Thyroid Stimulating Hormone (TSH) test for thyroid function 03/21/2025 03/21/2024, 09/13/2023, 06/14/2023, Additional history exists Visit: Medicare Annual Wellness 03/22/2025 03/21/2024 Visit: Chronic Disease, age 18+ 04/25/2025 04/25/2024, 03/21/2024 Mammogram 05/01/2025 05/01/2024, 0503/2023, 12/22/2021, Additional history exists DTaP,Tdap,and Td Vaccines (4 - Td or Tdap) 02/25/2026 02/26/2016, 03/13/2013, 11/14/2012, Additional history exists Colonoscopy 02/21/2028 02/20/2018 (Perf ormed elsewhere) Colorectal Cancer Screening 02/21/2028 Lipid (Cholesterol) Screening 03/21/2029 03/21/2024, 03/18/2023, 03/15/2022, Additional history exists Bone Density Scan (Osteoporosis Screen) Discontinued 09/03/2014 Zoster Vaccines Completed 11/28/2019, 09/15, 09/30/2015 Hepatitis C Screening Addressed 03/15/2022 (Performed elsewhere) Overridden with the intention of not completing the topic Pneumococcal vaccine (65+ years) Completed 03/15/2022, 11/14/2019, 08/02/2019, Additional history exists Depression Screening (Annual PHQ-2) Completed 03/21/2024, 03/14/2024 Fall Risk Screen (Annual) Completed 03/21/2024 Medical Devices Implanted Type Area Clinical Field Specialist Device Identifier Shelf Expiration Date Model / Serial / Lot Femoral Head - [employer] [id number] Implanted:Qty: 1 on 09/04/2014 Bone or Tissue Other/Legacy - See Implant Description [employer] Description:Device Manufactu rer - [employer]. Body Location - ?. spine fusion. Device Status Text - [id number]. Hip Implant-06/30/20 16 Implanted:06/30 (Quantity not on [...] related to prior cholecystectomy. Mina Quach M.D. IMG DIAGNOSTIC TOÑA GING PROCEDURES * BI Breast [...] Screening Mammogram ASSESSMENT: BI-RADS: 1: Negative. Holli Campos M.D. IMG BI PROCEDURES * EMG (04/19/2024 12:05 PM CDT) 04/19/2024 11:3 0 AM CDT Narrative EMG - 04/19/2024 11:46 AM CDT Table formatting from the original result was not included. 19-Apr-2024 ? Electromyography ? Final Report Study Number: 3 EMG Medical Insurance Claims Specialist: Ernesto Morris [phone] or [phone] Referred by: HOLLI CAMPOS () Referred for: peripheral neuropathy Referral Code: [...] on this study. N. Seven ([phone] or [phone]) NERVE CONDUCTIONS ??Record Rep ?? Normal ??Normal [...] M.D. at 04/19/2024 11:45:58 AM CDT Holli Campos M.D. NEUROLOGY ORDERABLE S [facility] EMG * ECG 12 Lead (03/21/2024 10:20 AM CDT) Ventricular Rate ECG/Min 70 BPM MUSE IL Interval 146 ms MUSE QRSD Interval 76 ms MUSE QT Interval 408 ms MUSE QTC Interval 440 ms MUSE P Bison 49 degrees MUSE R Bison 63 degrees MUSE T Wave Bison 7 degrees MUSE 03/21/2024 10:2 0 AM [...] was found Reviewed by AIMEE Longoria Holli Campos M.D. ECG ORDERABLES Performing Organization Address City/[facility]/ZIP Co de Phone Number MUSE NA * Pernicious Anemia [place] (03/21/2024 9:07 AM CDT) Vitamin B12 Assay, S 455 180 - 914 ng/L 03/22/2024 10:24 AM CDT [facility] Blood (Blood, Venous) 03/21/2024 9:07 AM CDT 03/22/2024 7:50 AM CDT Narrative [facility] - 03/22/2024 10:24 AM CDT Specimen Information: Specimen ID: [id number] Specimen Type: Blood Specimen Collection Start Date: 03/21/2024 ??9:07 AM Specimen Received Date: 03/22/2024 ??7:50 AM Specimen ID: [id number] Specimen Type: Blood Specimen Collection Start Date: 03/21/2024 ??9:07 AM Specimen Received Date: 03/22/2024 ??7:54 AM Holli Campos M.D. LAB BLOOD NON ADD-O N Performing Organization Address [facility] Co de Phone Number [facility] [address] [place] [address] [facility] [address] [place] [address] * S-TSH (Thyroid-Stimulating Hormone - Sensitive) (03/21/2024 9:07 AM CDT) Pathologist [facility] TSH, Sensitive 1.2 0.3 - 4.2 mIU/L 03/21/2024 9:40 AM CDT CNFL Blood (Blood, Venous) 03/21/2024 9:07 AM CDT 03/21/2024 9:08 AM CDT Holli A Wojick M.D. LAB BLOOD ADD-ON [facility] [address] [place] [phone], [facility] CNFL [facility] in [address] [address] * (ABNORMAL) Lipid Panel (03/21/2024 9:06 AM CDT) Triglycerides 163(H) mg/dL 03/21/2024 9:33 AM CDT CNFL Comment: ----REFERENCE VALUE---- Normal: <150 mg/dL Borderline High: 150-199 mg/dL High: 200-499 mg/dL Very High: > or =500 mg/dL Cholesterol, Total 178 mg/dL 2023 9:33 AM CDT CNFL Comment: ----REFERENCE VALUE---- Desirable: < 200 mg/dL Borderline High: 200 - 239 mg/dL High: > or = 240 mg/dL Cholesterol, LDL, Calculated 86 mg/dL 03/21/2024 9:33 AM CDT CNFL Comment: ----REFERENCE VALUE---- Desirable: <100 mg/dL Above [...] AM CDT 03/21/2024 9:08 AM CDT Holli Campos M.D. LAB BLOOD ADD-ON [facility] [address] [place] [phone], [facility] CNFL [facility] in [address] [address] * CBC with Differential, Blood (03/21/2024 9:06 [...] AM CDT 03/21/2024 9:08 AM CDT Holli Campos M.D. LAB BLOOD ADD-ON Performing Organization Address City/[facility]/ZIP Co de Phone Number [facility] [address] [place] [phone], [facility] [address] [address] * (ABNORMAL) Hemoglobin A1c (03/21/2024 9:06 AM [...] AM CDT 03/21/2024 9:08 AM CDT Holli Campos M.D. LAB BLOOD ADD-ON Performing Organization Address [facility]/ZIP Co de Phone Number [facility] [address] [place] [address], [address] [address] * (ABNORMAL) Comprehensive Metabolic Panel (03/21/2024 9:06 [...] AM CDT 03/21/2024 9:08 AM CDT Holli Campos M.D. LAB BLOOD ADD-ON [facility] [address] [place] [address], [facility] CNFL [facility] in [address] [address] * Albumin, Random, Urine (09/13/2023 8:53 AM CDT) Microalbumin 19.5 mg/L 09/13/2023 9:07 AM CDT CNFL Creatinine 113 mg/dL 09/13/2023 9:07 AM CDT CNFL Albumin/Creatinin e Ratio 17 <25 mg/g 09/13/2023 9:07 AM CDT CNFL Urine (Urine, Midstream) 09/13/2023 8:53 AM CDT 09/13/2023 8:53 AM CDT Holli Campos M.D. LAB URINE ORDERABLE S [facility] [address] [place] [address], [facility] CNFL [facility] in [address] [address] from Last 3 Months or Most Recently Relevant to Health Maintenance Care Teams Aluminum Shingle Roofer Relationship Specialty Start Date End Date Holli Campos M.D. [address] [place] [phone] PCP - General Family Medicine 04/23/22 [facility] [place] [facility] 03/21/24 [facility] Ophthalmology 03/21/24
--- OUTSIDE RECORDS SUMMARY | 2024-05-27 22:29 | XMS_ITS ---
Author Organization [facility] Address [address] [place] [address] Care Team Providers Care Forging Machine Hand Name Role Phone Unavailable Unavailable Unavailable Surgery Details Not on file Complications Check Surgery Details section. Procedure Estimated Blood Loss Check Surgery Details section. Procedure Findings Check Surgery Details section. Procedure Specimens Taken Check Surgery Details section.
--- OUTSIDE RECORDS SUMMARY | 2024-05-27 22:29 | XMS_ITS | Encounter Summary ---
Author Organization [facility] Address [address] [place] [address] Care Team Providers Care Front Office Associate Name Role Phone Anne Campos M.D. Primary Care Provider [phone] Reason for Referral * Outpatient (Routine) - Closed Specialty Diagnoses / Procedures Referred By Louie dominguez Referred To Contact Diagnoses Screening Mammogram Breast Cancer Procedures BI Breast Screening Bilateral with Tomosynthesis Anne Campos M.D. [address] [place] [phone] [facility] Referral ID Status Reason Start Date Expiration Date Visits Re quested Visits Authorized [id number] Closed 03/20/2024 03/20/2025 1 1 Reason for Visit * Outpatient (Routine) - Closed Specialty Diagnoses / Procedures Referred By Louie dominguez Referred To Contact Diagnoses Screening Mammogram Breast Cancer Procedures BI Breast Screening Bilateral with Tomosynthesis Anne Campos M.D. [address] [place] [phone] [facility] Region Referral ID Status Reason Start Date Expiration Date Visits Re quested Visits Authorized [id number] Closed 03/20/2024 03/20/2025 1 1 Encounter Details Date Type Department Care Team (Latest Contact Info) Description 05/01/2024 2:25 PM CDT - 05/01/2024 11:59 PM CDT Hospital Encounter Department of Radiology in [address] [phone] Anne Campos M.D. [address] [place] [phone] Screening Mammogram Breast Cancer Discharge Disposition: Home or Self Care Social History Tobacco Use Types Packs/Day Years Used Date Smoking Tobacco: Former Cigarettes Q uit: 2004 Smokeless Tobacco: Never Alcohol Use Standard Drinks/Week Comments Not Currently 1 (1 standard drink = 0.6 oz pur e alcohol) rare [facility] Utilities Answer Date Recorded In the past 12 months has [employer], gas, oil, or water [employer] threatened to shut off services in your [...] week 03/11/2023 How often do you attend [facility] or confucianism services? More than 4 times per year 03/11/2023 Do you belong to any clubs o r organizations such as hinduism groups, unions, fraternal or athletic groups, or [...] Answer Date Recorded PHQ-2 Score 0 03/14/2024 [facility] - Occupational Stress Questionnaire Answer Date [...] your living situation today? I have a [facility] place to live 03/16/2024 Education Answer Date [...] AM CDT Appointment Division of Gastroenterology in [place], [place] [address] [place] [phone] Nikky Causey M.D., M.P.H. [address] [place] [phone] 06/12/2024 10:45 AM CDT Appointment Division of Gastroenterology in [place], [place] [address] [place] [phone] Nikky Causey M.D., M.P.H. [address] [place] [phone] Kade Rios M.D. [address] [place] [phone] 06/14/2024 9:45 AM CDT Appointment Division of Gastroenterology in [place], [place] [address] [place] [phone] Nikky Causey M.D., M.P.H. [address] [place] [phone] Discharge Disposition: Home or Self Care 06/20/2024 9:30 AM CDT Diagnostic Division of Pulmonary Medicine in [place], [place] [address] [place] [phone] Mina Quach M.D. [address] [place] [phone] 06/26/2024 9:00 AM CDT Office Visit Department of Cardiovascular Diseases in [address] [phone] Mina Quach M.D. [address] [place] [phone] 07/06/2024 8:30 AM CDT Appointment Department of Laboratory Medicine in [address] [phone] Anne Campos M.D. [address] [place] [phone] 07/06/2024 9:15 AM CDT Office Visit Department of Family Medicine, [facility], in [address] [phone] Anne Campos M.D. [address] [place] [phone] Discharge Disposition: Home or Self Care documented as of this encounter Procedures Procedure Name Priority Date/Time Associated Diagnosis Comments BI BREAST SCREENING BILATERAL WITH TOMOSYNTHESIS RAD - Routine (most inpatients and all outpatients) 05/01/2024 2:36 PM CDT Screening Mammogram Breast Cancer documented in this encounter Results * BI Breast Screening Bilateral with Tomosynthesis [...] Annual Screening Mammogram ASSESSMENT: BI-RADS: 1: Negative. Anne Campos M.D. IMG BI PROCEDURES documented in this encounter Visit Diagnoses Diagnosis Screening Mammogram Breast Cancer documented in this encounter Additional Health Concerns Assessment Noted Time PHQ-9 Depression Total Score: 6 09/03/20 14 2:09 PM CDT documented as of this encounter Care Teams Front Office Associate Relationship Specialty Start Date End Date Anne Campos M.D. [address] [phone] PCP - General Family Medicine 04/23/22 [facility] [place] [facility] 03/21/24 [facility] Ophthalmology 03/21/24 documented as of this encounter
--- OUTSIDE RECORDS SUMMARY | 2024-05-27 22:29 | XMS_ITS | Encounter Summary ---
Author Organization [facility] Address [address] [place] [address] Care Team Providers Care Special Trackwork Blacksmith Name Role Phone Anne Campos M.D. Primary Care Provider [phone] Reason for Referral * Outpatient (Routine) - Closed Specialty Diagnoses / Procedures Referred By Contac t Referred To Contact Diagnoses Dyspnea On Exertion Procedures DX Chest AP or PA and Lateral 2 Views Mina Quach M.D. [address] [place] [address] [facility] Region Referral ID Status Reason Start Date Expiration Date Visits Re quested Visits Authorized [id number] Closed 05/21/2024 05/21/2025 1 1 * Outpatient (Routine) - Authorized Specialty Diagnoses / Procedures Referred By Contac t Referred To Contact Cardiovascular Disease Mina Quach M.D. [address] [place] [address] [facility] Referral ID Status Reason Start Date Expiration Date V isits Requested Visits Authorized [id number] Authorized 05/21/2024 11/20/2025 1 1 Scheduling Instructions Ok to schedule on Tuesday during admin time or echo reading. Reason for Visit * Reason Comments Shortness of Breath Chest Pain Consult * Outpatient (Routine) - Closed Specialty Diagnoses / Procedures Referred By Contact Referred To Contact Cardiovascular Diseases / Cardiovascular Disease Diagnoses Dyspnea On Exertion Pain Chest Anne Campos M.D. [address] [address] [facility] Referral ID Status Reason Start Date Expiration Date Visits Re quested Visits Authorized [id number] Closed 03/21/2024 09/20/2025 1 1 Encounter Details Date Type Department Care Team (Latest Contact Info) Description 05/21/2024 8:30 AM CDT Comprehensive Visit Department of Cardiovascular Diseases in [address] [phone] Mina Quach M.D. [address] [place] [phone] Dyspnea On Exertion (Primary Dx); Pain Chest; Atherosclerotic Heart Disease Of [place] Coronary Artery Without Angina Pectoris; Pain Low Back Chronic Discharge Disposition: Home or Self Care Social History Tobacco Use Types Packs/Day Years Used Date Smoking Tobacco: Former Cigarettes Q uit: 2004 Smokeless Tobacco: Never Tobacco Cessation:Counseling Given: Not Answered Alcohol Use Standard Drinks/Week Comments Not Currently 1 (1 standard drink = 0.6 oz pur e alcohol) rare [facility] Utilities Answer Date Recorded In the past 12 months has e [employer], oil, or water [employer] threatened to shut off services in your [...] any clubs o r organizations such as lutheran groups, unions, fraternal or athletic groups, or [...] Answer Date Recorded PHQ-2 Score 0 03/14/2024 [facility] - Occupational Stress [...] your living situation today? I have a [facility] place to live 03/16/2024 Education Answer [...] Pulse 79 05/21/2024 8:21 AM CDT Temperature - - Respiratory Rate - - Oxygen Saturation - - Inhaled Oxygen Concentration - - Weight 64.5 kg (142 lb 3.2 oz) 05/21/2024 8:19 A M CDT Height - - Body Mass Index 25.97 03/21/2024 9:42 AM CDT documented in this encounter Patient Instructions * Patient Instructions* Mina Quach M.D. - 05/21/2024 8:30 AM CDT 30 minutes 5 days a week. Pulmonary function tests. Return on a Tuesday following this. Chest xray today in Radiology. documented in this encounter Consult Notes * Mina Quach M.D. - 05/21/2024 8:30 AM CDT SUBJECTIVE REFERRING PROVIDER Anne Campos M.D. CHIEF COMPLAINT / REASON FOR VISIT Shortness of Breath, Chest Pain, and Consult HISTORY OF PRESENT ILLNESS Sherice May is a 73 y.o. female who presents for consultation for evaluation of chest pain and shortness of breath. She describes a ???squeezing?? in her chest which can happen about 4 times a week and lasts for about 30 seconds. There is no clear provocative factor. It has not associated with exertion. She also notes increased dyspnea on exertion which she feels is worsening. She is short of breath with less than a block of walking. She smoked for about 20 years a half a pack a day. She has not hadPFTs. No recent chest x-ray. She has difficulty with regular aerobic exercise due to chronic pain. She has recently begun a walking program. She has a goal to walk to a friend's house which is more than a mile away. She was previously followed through [facility] cardiology. A stress test in 2018 was negative for ischemia. She was able to do 7 Mets on a Thai protocol. She had chest discomfort on the treadmill and the ECG was positive. Because of intermittent chest discomfort, she underwent an angiogram in 2019 which documented [id number] CAD. There was an 80% stenosis in a small 1st diagonal. RCA and circumflex had mild disease. There was 50% stenosis in the mid LAD. Lad was evaluated with IFR which did not reach significance for revascularization Echocardiogram 04/13/2023 with a normal study. Two day Holter from 04/23/2023 showed normal sinus rhythm rare PACs. ECG from 03/21/2024 suggested normal sinus rhythm. MEDICAL HISTORY 1. Diabetes mellitus type 2. 2. Hypothyroidism. 3. Prior left hip replacement. 4. Chronic pain back pain prior surgeries with medical cannabis use. CURRENT MEDICATIONS Current Outpatient Medications on File Prior to Visit Medication Sig Dispense Refill Accu-Chek Fastclix Lancet Drum USE ONCE DAILY TO CHECK BLOOD SUGARS 100 each 3 acetaminophen (TYLENOL) 500 mg tablet Take 1-2 tablets by mouth every 6 (six) hours as needed. amLODIPine (NORVASC) 5 mg tablet Take 1 tablet (5 mg total) by mouth at bedtime. 90 tablet 3 azelastine (ASTELIN) 137 mcg/spray (0.1 %) nasal spray Administer 2 sprays into each nostril 2 (two) times a day as needed. blood sugar diagnostic strips (Accu-Chek SmartView Test Strip) Test once daily. 100 each 3 diclofenac sodium (VOLTAREN) 1 % gel Apply 2 g topically 4 (four) times a day. Apply to bilateral feet 450 g 3 dulaglutide (Trulicity) 0.75 mg/0.5 mL injection Inject 0.5 mL (0.75 mg total) under the skin every7 (seven) days. 6 mL 3 DULoxetine (CYMBALTA) [address] capsule Take 1 capsule (30 mg total) by mouth daily. 90 capsule 3 Farxiga 10 mg tablet Take 1 tablet (10 mg total) by mouth daily. 90 tablet 3 glucosamine-chondroitin (GLUCOSAMINE-CHONDROITIN) 500-400 mg per capsule Take 2 capsules by mouth daily. 100 capsule 3 Lactobacillus acidophilus 10 billion cell capsule Take by mouth. levothyroxine (SYNTHROID, LEVOTHROID) 88 mcg tablet Take 1 tablet (88 mcg total) by mouth every morning before breakfast. 90 tablet 3 losartan (COZAAR) 50 mg tablet Take 1 tablet (50 mg total) by mouth daily. 90 tablet 3 meloxicam (MOBIC) 15 mg tablet Take 1 tablet (15 mg total) by mouth daily. 90 tablet 3 omeprazole (PriLOSEC) [address] capsule TAKE 1 CAPSULE(40 MG) BY MOUTH TWICE DAILY BEFORE BREAKFAST AND DINNER 180 capsule 3 Restasis 0.05 % ophthalmic emulsion Administer 1 drop into both eyes 2 (two) times a day. rosuvastatin (CRESTOR) 20 mg tablet Take 1 tablet (20 mg total) by mouth at bedtime. 90 tablet 3 Stimulant Laxative Plus 8.6-50 mg per tablet TAKE 1 TO 3 TABLETS BY MOUTH TWICE DAILY NEEDED FORCONSTIPATION 100 tablet 3 turmeric root extract 500 mg capsule Take by mouth. No current facility-administered medications on file prior to visit. SOCIAL HISTORY Social History Tobacco Use Smoking status: Former Current packs/day: 0.00 Types: Cigarettes Quit date: 2004 Years since quittin.5 Smokeless tobacco: Never Substance Use Topics Alcohol use: Not Currently Alcohol/week: 1.0 standard drink of alcohol Types: 1 Glasses of wine per week Comment: rare FAMILY HISTORY Family History Problem Relation Name Age of Onset Breast cancer Sister Breast cancer Sister Coronary artery disease Brother Miles Dawson REVIEW OF SYSTEMS As per HPI. OBJECTIVE BP 151/74 (BP Location: Right arm, Patient Position: Sitting, Cuff Size: Regular) Pulse 79 Wt 64.5 kg BMI 25.97 kg/m?? PHYSICAL EXAMINATION General: Pleasant, conversant, and in no distress. Appears stated age. HEENT: Mucous membranes moist. Neck is supple. Trachea is midline. No scleral icterus or conjunctival pallor. Neck: Supple, no erythema. Cardiovascular: Regular rhythm and rate. No murmurs. Jugular venous pressure is normal. She was tender to palpation along her left sternum. Pulmonary: No wheeze. Mildly coarse. Abdomen: Soft, nontender, nondistended. Extremities: Warm and dry without significant edema. Psychiatric: Alert and oriented with appropriate affect. DIAGNOSTICS Lab Results Component Value Date/Time CHOL 178 03/21/2024 09:06 AM LDLCALC 86 03/21/2024 09:06 AM LDLCALC 85 03/15/2022 11:38 AM HDL 64 03/21/2024 09:06 AM TRIG 163 (H) 03/21/2024 09:06 AM ASSESSMENT / PLAN 1. Chest pain, appears musculoskeletal. 2. Dyspnea on exertion. 3. Chronic pain. She has quite a few different symptoms and we spent time trying to discuss each in term. In the future, we could further evaluate her sense of lightheadedness and prior history of syncope which we touched on only briefly today. She has chest pain which is reproducible to palpation along her left sternal border. This would suggest a musculoskeletal etiology. This could be treated with acetaminophen or even a short course of ibuprofen. She does describe increasing dyspnea. She previously smoked for about 20 years. Lung exam is overall reassuring. We will have her undergo PFTs and a chest x- ray. I think there is also a strong component of deconditioning given her chronic pain. We discussed starting a walking program. We will have her follow up after her pulmonary function tests. If she continued to have worsening dyspnea that was unexplained, we could discuss a stress echocardiogram which would help us to evaluate for coronary disease and increased filling pressures with exercise. A right and left heart catheter ization would be another consideration. 60 minutes over half of which was spent in counseling and coordination of care in regards to dyspnea on exertion, chest pain. documented in this encounter Plan of Treatment Upcoming Encounters Date Type Department Care Team (Latest Contact Info) Description 06/12/2024 8:45 AM CDT Appointment Division of Gastroenterology in [address] [phone] Nikky Causey M.D., M.P.H. [address] [place] [phone] 06/12/2024 10:45 AM CDT Appointment Division of Gastroenterology in [address] [phone] Nikky Causey M.D., M.P.H. [address] [place] [phone] Kade Rios M.D. [address] [place] [phone] 06/14/2024 9:45 AM CDT Appointment Division of Gastroenterology in [address] [phone] Nikky Causey M.D., M.P.H. [address] [place] [phone] Discharge Disposition: Home or Self Care 06/20/2024 9:30 AM CDT Diagnostic Division of Pulmonary Medicine in [address] [phone] Mina Quach M.D. [address] [place] [phone] 06/26/2024 9:00 AM CDT Office Visit Department of Cardiovascular Diseases in [address] [phone] Mina Quach M.D. [address] [place] [phone] 07/06/2024 8:30 AM CDT Appointment Department of Laboratory Medicine in [address] [phone] Anne Campos M.D. [address] [place] [phone] 07/06/2024 9:15 AM CDT Office Visit Department of Family Medicine, [facility], in [address] [phone] Anne Campos M.D. [address] [place] [phone] Discharge Disposition: Home or Self Care Scheduled Orders Name Type Priority Associated Diagnoses Orde r Schedule Pulmonary Function Tests PFT Routine Dyspnea On Exertion Expected: 05/21/2024, Expires: 08/21/2025 Scheduled Referrals Name Type Priority Associated Diagnoses Order Schedule Cardiovascular Disease office visit (clinic) Outpatient Referral Routine 1 Occurrences starting 05/21/2024 until 08/21/2025 documented as of this encounter Results * DX Chest AP [...] this encounter Visit Diagnoses Diagnosis Dyspnea On Exertion- Primary Pain Chest Atherosclerotic Heart Disease Of [place] Coronary Artery Without Angina Pectoris Pain Low Back Chronic Dyspnea On Exertion documented in this encounter Additional Health Concerns Assessment Noted Time PHQ-9 Depression Total Score: 6 09/03/20 14 2:09 PM CDT documented as of this encounter Care Teams Special Trackwork Blacksmith Relationship Specialty Start Date End Date Anne Campos M.D. [address] [place] [phone] PCP - General Family Medicine 04/23/22 [facility] [place] [facility] 03/21/24 [facility] Ophthalmology 03/21/24 documented as of this encounter
--- OUTSIDE RECORDS SUMMARY | 2024-05-27 22:29 | XMS_ITS | Encounter Summary ---
Author Organization [facility] Address [address] [place] [address] Care Team Providers Care Navigating Officer Name Role Phone Anne Campos M.D. Primary Care Provider [phone] Reason for Referral * Specialty Diagnoses / Procedures Referred By Louie dominguez Referred To Contact Nikky Causey M.D., M.P.H. [address] [place] [address] [facility] Referral ID Status Reason Start Date Expiration Date Visits Re quested Visits Authorized * Outpatient (Routine) - Authorized Specialty Diagnoses / Procedures Referred By Louie dominguez Referred To Contact Diagnoses Dysphagia Gastroesophageal Reflux Disease Procedures Nikky Kirk M.D., M.P.H. [address] [place] [address] [facility] Referral ID Status Reason Start Date Expiration Date V isits Requested Visits Authorized [id number] Authorized 04/27/2024 04/27/2025 1 1 * Outpatient (Routine) - Authorized Specialty Diagnoses / Procedures Referred By Louie dominguez Referred To Contact Diagnoses Dysphagia Gastroesophageal Reflux Disease Procedures EGD (EsophagoGastroDuodenoscopy) Restricted Nikky Causey M.D., M[facility]P.[facility] [address] [place] [address] [facility] Referral ID Status Reason Start Date Expiration Date V isits Requested Visits Authorized [id number] Authorized 04/27/2024 04/27/2025 1 1 Encounter Details Date Type Department Care Team (Latest Contact Info) Description 04/26/2024 Clinical Communication Division of Gastroenterology in [place], [place] [address] [place] [address] Nikky Causey M.D., M.P.H[facility] [address] [place] [phone] Social History Tobacco Use Types Packs/Day Years Used Date Smoking Tobacco: Former Cigarettes Q uit: 2004 Smokeless Tobacco: Never Alcohol Use Standard Drinks/Week Comments Not Currently 1 (1 standard drink = 0.6 oz pur e alcohol) rare [facility] Utilities Answer Date Recorded In the past 12 months has e [employer], gas, oil, or water [employer] threatened to shut off services in your [...] often do you attend chur ch or uatsdin services? More than 4 times per year 03/11/2023 Do you belong to any clubs o r organizations such as zoroastrian groups, unions, fraternal or athletic groups, or [...] Answer Date Recorded PHQ-2 Score 0 03/14/2024 [facility] Questionnaire Answer Date [...] the money to buy more. Never true 05/03/20 24 Within the past 12 months, t [...] your living situation today? I have a [facility] place to live 03/16/2024 Education Answer Date Recorded What is the highest level of school you have completed or the highest degree you have received? 12th grade 05/03/2022 Sex and Gender Information Value Date Recorded Sex Assigned at Female 05/03/2022 10:54 AM CDT Gender Identity Female 05/03/2022 10:54 AM CDT Sexual Orientation Straight 05/03/2022 10 :54 AM CDT documented as of this encounter Plan of Treatment Upcoming Encounters Date Type Department Care Team (Latest Contact Info) Description 06/12/2024 8:45 AM CDT Appointment Division of Gastroenterology in [place], [place] [address] [place] [address] Nikky Causey M.D[facility] [address] [place] [phone] 06/12/2024 10:45 AM CDT Appointment Division of Gastroenterology in [place], [place] [address] [place] [address] Nikky Causey M.D[facility] [address] [place] [phone] Kade Rios M.D. [address] [place] [phone] 06/14/2024 9:45 AM CDT Appointment Division of Gastroenterology in [place], [place] [address] [place] [address] Nikky Causey M[facility] [address] [place] [phone] Discharge Disposition: Home or Self Care 06/20/2024 9:30 AM CDT Diagnostic Division of Pulmonary Medicine in [place], [place] [address] [place] [address] Mina Quach M.D. [address] [place] [phone] 06/26/2024 9:00 AM CDT Office Visit Department of Cardiovascular Diseases in [address] [phone] Mina Quach M.D. [address] [place] [phone] 07/06/2024 8:30 AM CDT Appointment Department of Laboratory Medicine in [address] [phone] Anne Campos M.D. [address] [place] [phone] 07/06/2024 9:15 AM CDT Office Visit Department of Family Medicine, [facility], in [address] [phone] Anne Campos M.D. [address] [place] [address] [place] [phone] Discharge Disposition: Home or Self Care Scheduled Orders Name Type Priority Associated Diagnoses Orde r Schedule EGD (EsophagoGastroDuodenosco py) Restricted GI Routine Dysphagia Gastroesophageal Reflux Disease Expected: 04/27/2024, Expires: 07/28/2025 [facility] Routine Dysphagia Gastroesophageal Reflux Disease Expected: 04/27/2024, Expires: 07/28/2025 Scheduled Referrals Name Type Priority Associated Diagnoses Order Schedule Gastroenterology and Hepatology - Nurse education visit (clinic) Outpatient Referral Routine Dysphagia Gastroesophageal Reflux Disease Expected: 04/27/2024, Expires: 07/28/2025 documented as of this encounter Visit Diagnoses Diagnosis Dysphagia- Primary Gastroesophageal Reflux Disease documented in this encounter Additional Health Concerns Assessment Noted Time PHQ-9 Depression Total Score: 6 09/03/20 14 2:09 PM CDT documented as of this encounter Care Teams Navigating Officer Relationship Specialty Start Date End Date Anne Campos M.D. [id number] [place] [phone] PCP - General Family Medicine 04/23/22 [facility] [place] [facility] 03/21/24 [facility] Ophthalmology 03/21/24 documented as of this encounter
--- OUTSIDE RECORDS SUMMARY | 2024-05-27 22:30 | XMS_ITS | Encounter Summary ---
Author Organization [facility] Address [address] [place] [address] Care Team Providers Care Child Care Aide Name Role Phone Anne Campos M.D. 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 [address] [place] [phone] [facility] Region Referral ID Status Reason Start Date Expiration Date V isits Requested Visits Authorized [id number] Authorized 04/05/2024 2025 1 1 * Outpatient (Routine) - Authorized Specialty Diagnoses / Procedures Referred By Contac t Referred To Contact Diagnoses Dyspnea On Exertion Pain Chest Procedures ECG 12 Lead Anne Campos M.D. [address] [place] [phone] [facility] Region Referral ID Status Reason Start Date Expiration Date V isits Requested Visits Authorized [id number] Authorized 03/21/2024 03/21/2025 1 1 * Outpatient (Routine) - Closed Specialty Diagnoses / Procedures Referred By Louie t Referred To Contact Family Medicine Anne Campos M.D. [address] [place] [phone] [facility] Region Referral ID Status Reason Start Date Expiration Date Visits Re quested Visits Authorized [id number] Closed 03/21/2024 09/20/2025 1 1 * Outpatient (Routine) - Closed Specialty Diagnoses / Procedures Referred By Louie dominguez Referred To Contact Diagnoses 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) Procedures EMG Anne Campos M.D. [address] [place] [phone] [facility] Region Referral ID Status Reason Start Date Expiration Date Visits Re quested Visits Authorized [id number] Closed 03/21/2024 03/21/2025 1 1 * Outpatient (Routine) - Closed Specialty Diagnoses / Procedures Referred By Contact Referred To Contact Cardiovascular Diseases / Cardiovascular Disease Diagnoses Dyspnea On Exertion Pain Chest Anne Campos M.D. [address] [place] [phone] [facility] Region Referral ID Status Reason Start Date Expiration Date Visits Re quested Visits Authorized [id number] Closed 03/21/2024 09/20/2025 1 1 Reason for Visit * Reason Comments Discuss arthritis pain management Diabetes management 6 month Discuss chol esterol Fatigue and SOB with activity- referral to cardiology * Outpatient (Routine) - Closed Specialty Diagnoses / Procedures Referred By Louie t Referred To Contact Family Medicine Diagnoses 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) Anne Campos M.D. [address] [place] [phone] [facility] Referral ID Status Reason Start Date Expiration Date Visits Re quested Visits Authorized [id number] Closed 09/16/2023 09/15/2026 1 1 Encounter Details Date Type Department Care Team (Latest Contact Info) Description 03/21/2024 9:45 AM CDT Office Visit Department of Family Medicine, [facility], in [address] [phone] Anne Campos M.D. 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) (Primary Dx); Hypertension And Chronic Kidney Disease Stage 2; Dyspnea On Exertion; Pain Chest; Neuropathy Peripheral; Hyperlipidemia Mixed; Hypothyroidism Discharge Disposition: Home or Self Care Social History Tobacco Use Types Packs/Day Years Used Date Smoking Tobacco: Former Cigarettes Q uit: 2004 Smokeless Tobacco: Never Tobacco Cessation:Counseling Given: Not Answered Alcohol Use Standard Drinks/Week Comments Not Currently 1 (1 standard drink = 0.6 oz pur e alcohol) rare [facility] Utilities Answer Date Recorded In the past 12 months has [facility] [place], gas, oil, or water [employer] threatened to shut off services in your [...] How often do you attend chur or roman catholic services? More than 4 times per year 03/11/2023 Do you belong to any clubs o r organizations such as hindu groups, unions, fraternal or athletic groups, or [...] Answer Date Recorded PHQ-2 Score 0 03/14/2024 [facility] - Occupational Stress Questionnaire Answer Date [...] your living situation today? I have a [facility] place to live 03/16/2024 Education Answer [...] Sign Reading Time Taken Comments Blood Pressure 136/80 03/21/2024 9:42 AM CDT Pulse 89 03/21/2024 9:42 AM CDT Temperature 36.9 ??C (98.4 ??F) 03/21/2024 9:42 AM CD T Respiratory Rate 18 03/21/2024 9:42 AM CDT Oxygen Saturation 96% 03/21/2024 9:42 AM CDT Inhaled Oxygen Concentration - - Weight 64.8 kg (142 lb 13.7 oz) 03/21/2024 9:42 AM CDT Height 157.6 cm (5' 2.05) 03/21/2024 9:42 AM CD T Body Mass Index 26.09 03/21/2024 9:42 AM CDT documented in this encounter Patient Instructions * Patient Instructions* Anne Campos M.D. - 03/21/2024 9:45 AM CDT Cardiology referral placed for [place]. EMG ordered for [place]. DECREASE Effexor to 75mg every other day for 1 week and then stop. START Cymbalta 30mg once daily after stopping Effexor for nerve pain. Schedule follow-up in clinic in 1 month for recheck after starting the Cymbalta. documented in this encounter Progress Notes * Anne Campos M.D. - 03/21/2024 9:45 AM CDT SUBJECTIVE CHIEF COMPLAINT / REASON FOR VISIT Sherice May is a 73 y.o. female who presents for evaluation of Discuss arthritis pain management, Diabetes management 6 month (Discuss cholesterol), and Fatigue and SOB with activity- referral to cardiology. HISTORY OF PRESENT ILLNESS She is noticing that she can't do much before getting shortness of breath or fatigue. She feels that even cleaning the house can lead to having to stop to rest. Sometimes she will have to stop to rest with the stairs as well. Some days this is getting worse. She has been trying to increase her walking and exercise. Sometimes she has to stop and catch her breath with this. More recently she has not been able to increase her exercise due to the shortness of breath. She feels that the shortness ofbreath leads to fatigue. She can also experience chest pressure with the shortness of breath. She has chronic low back pain and on left side. Meloxicam helps. Gabapentin she was previously on after back surgery. She would like something with less risk of fatigue. Constitutional: Positive for fatigue. Respiratory: Positive for shortness of breath. Cardiovascular: Positive for chest pain, pressure or tightness. Musculoskeletal: Positive for back pain. OBJECTIVE BP 136/80 (BP Location: Left arm, Patient Position: Sitting, Cuff Size: Regular) Pulse 89 Temp 36.9 ??C (Temporal) Resp 18 Ht 157.6 cm Wt 64.8 kg SpO2 96% BMI 26.09 kg/m?? PHYSICAL EXAM Constitutional General: She is not in acute distress. Appearance: Normal appearance. She is not toxic-appearing. HENT Head: Normocephalic and atraumatic. Cardiovascular Rate and Rhythm: Normal rate and regular rhythm. Heart sounds: Normal heart sounds. No murmur heard. No friction rub. No gallop. Pulmonary Effort: Pulmonary effort is normal. No respiratory distress. Breath sounds: Normal breath sounds. No wheezing, rhonchi or rales. Musculoskeletal Right lower leg: No edema. Left lower leg: No edema. Neurological Mental Status: She is alert and oriented to person, place, and time. Mental status is at baseline. Cranial Nerves: No cranial nerve deficit. Psychiatric Mood and Affect: Mood normal. Behavior: Behavior normal. Thought Content: Thought content normal. Judgment: Judgment normal. Results for orders placed or performed [...] mg/dL Fasting (8 HR or more) Yes ASSESSMENT / PLAN 1. 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 She desires diagnostic clarity if her neuropathy is coming from her back versus diabetic neuropathy. If it is from her back, she would like to proceed with pain consultation for consideration of nurse stimulator or alternate treatment interventions. She was previously on Effexor for hot flashes and no longer feels she needs it. Will discontinue with initiation of Cymbalta. - Family Medicine office visit (clinic) - EMG; Future - DULoxetine (CYMBALTA) [address] capsule; Take 1 capsule (30 mg total) by mouth daily. Dispense: 90capsule; Refill: 3 2. Hypertension And Chronic Kidney Disease Stage 2 Renal function stable. 3. Dyspnea On Exertion 4. Pain Chest She has known history of coronary artery disease. With progressive symptoms, recommend further evaluation with Cardiology. EKG without acute changes today. - Cardiovascular Disease - ICS consult (clinic); Future - ECG 12 Lead I spent 41 minutes face to face and non-face to face caring for the patient today. Anne Campos MD 03/21/24 documented in this encounter Plan of Treatment Upcoming Encounters Date Type Department Care Team (Latest Contact Info) Description 06/12/2024 8:45 AM CDT Appointment Division of Gastroenterology in [place], [place] [address] [place] [phone] Nikky Causey M.D., M.P.H. [address] [place] [phone] 06/12/2024 10:45 AM CDT Appointment Division of Gastroenterology in [place], [place] [address] [place] [phone] Nikky Causey M.D., M.P.H. [address] [place] [phone] Kade Rios M.D. [address] [place] [phone] 06/14/2024 9:45 AM CDT Appointment Division of Gastroenterology in [place], [place] [address] [place] [phone] Nikky Causey M.D., M.P.H[facility] [address] [place] [phone] Discharge Disposition: Home or Self Care 06/20/2024 9:30 AM CDT Diagnostic Division of Pulmonary Medicine in [place], [place] [address] [place] [phone] Mina Quach M.D. [address] [place] [phone] 06/26/2024 9:00 AM CDT Office Visit Department of Cardiovascular Diseases in [place] [address] [place] [phone] Mina Quach M.D. [address] [place] [phone] 07/06/2024 8:30 AM CDT Appointment Department of Laboratory Medicine in [address] [phone] Anne Campos M.D. [address] [place] [phone] 07/06/2024 9:15 AM CDT Office Visit Department of Family Medicine, [facility], in [address] [phone] Anne Campos M.D. 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) Expected: 07/06/2024 (Approximate), Expires: 04/05/2025 Lipid Panel Lab Routine Hyperlipidemia Mixed Expected: 07/06/2024 (Approximate), Expires: 07/06/2025 Comprehensive Metabolic Panel Lab Routine Hyperlipidemia Mixed Expected: 07/06/2024 (Approximate), Expires: 12/31/2026 S-TSH (Thyroid-Stimulating Hormone - Sensitive) Lab Routine Hypothyroidism Expected: 07/06/2024, Expires: 07/06/2025 Scheduled Referrals Name Type Priority Associated Diagnoses Orde r Schedule Cardiovascular Disease - ICS consult (clinic) Outpatient Referral Routine Dyspnea On Exertion Pain Chest Expected: 03/21/2024, Expires: 06/21/2025 Family Medicine office visit (clinic) Outpatient Referral Routine Expected: 04/21/2024 (Approximate), Expires: 06/21/2025 Family Medicine office visit (clinic) Outpatient Referral Routine 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 19-Apr-2024 ? Electromyography ? Final Report Study Number: [id number] EMG Positive Printer Operator: Ernesto Morris 127 or [phone] Referred by: ANNE CAMPOS () Referred for: peripheral neuropathy Referral [...] on this study. N. Seven (127 or [phone]) NERVE CONDUCTIONS ??Record Rep ?? Normal ??Normal [...] Morris M.D. at 04/19/2024 11:45:58 AM CDT Anne Campos M.D. NEUROLOGY ORDERABLE S [facility] EMG * ECG 12 Lead (03/21/2024 10:20 AM CDT) Ventricular Rate ECG/Min 70 BPM MUSE ND Interval 146 ms MUSE QRSD Interval 76 ms MUSE QT Interval 408 ms MUSE QTC Interval 440 ms MUSE P Nova 49 degrees MUSE R Nova 63 degrees MUSE T Wave Nova 7 degrees MUSE 03/21/2024 10:2 0 AM [...] change was found Reviewed by AIMEE Longoria Anne Campos M.D. 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 [address] [phone] PCP - General Family Medicine 04/23/22 [facility] Barcenas in [place] [facility] 03/21/24 [facility] Ophthalmology 03/21/24 documented as of this encounter
--- OUTSIDE RECORDS SUMMARY | 2024-05-27 22:30 | XMS_ITS | Clinical Summary ---
Author Organization [email or web address] Address [place], [place] [address] Care Team Providers Care Sheet Sorter Name Role Phone Stephen Macias MD Primary Care Provider [phone] Allergies Active Allergy Reactions Criticality Noted Date Comments Naproxen *Unknown 03/08/2022 Adverse Reaction Dust Mites *Unknown 05/27/2010 RUNNING NOSE EYE ITCHING Hydrochlorothiazide Hyponatremia 11/23/2018 Hydrocodone-Acetaminophen Nausea And Vomiting 0 05/26/2010 Ibuprofen GI Upset 04/07/2017 Metformin Other - Describe In Comment Field 02/23/2017 Diarrhea, nausea Mold Runny Nose,Cough 08/28/2013 PN: gets allergy shots PN: gets allergy shots Oxycodone-Acetaminophen Other - Describe In Comment Field 06/01/2018 Nausea & itching Pravastatin Myalgia 05/26/2010 Holder Pollen-Short Ragweed Runny Nose 07/03/2015 PN: gets allergy shots Medications Medication Sig Dispensed Refills Start Date End Date Status MULTIVITAMINS W-MINERALS (MULTIVITAMIN & MINERAL FORMULA ORAL) Take 1 tablet by mouth. Active amLODIPine (NORVASC) 5 mg tabletIndications:Ess ential hypertension Take 1 tablet by mouth once daily. 90 tablet 3 07/03/2020 Active venlafaxine (Effexor XR) 75 mg cp24 Extended-Release capsuleIndications:Me nopausal state Take 1 Capsule (75 mg) by mouth once daily with a meal. 90 Capsule 1 02/17/2021 Active rosuvastatin (CRESTOR) 20 mg tabletIndications:Mix ed hyperlipidemia TAKE 1 TABLET BY MOUTH DAILY 90 Tablet 02/20/2021 Active meloxicam 15 mg tablet Take 15 mg by mouth once daily. 03/23/2021 Active lancets (Accu-Chek Fastclix Lancet Drum) As directed. A ctive blood sugar diagnostic (Accu-Chek SmartView Test Strip) strip As directed. Active Lactobacillus acidophilus 10 billion cell cap Take by mouth. 06/01/2021 Acti ve levothyroxine (SYNTHROID) 75 mcg tablet 03/15/2022 Active amoxicillin (AMOXIL) 500 mg capsule TAKE 4 CAPSULES BY MOUTH 1 HOUR BEFORE DENTAL VISIT 05/12/2022 Active Farxiga 10 mg tablet 07/29/2022 Acti ve Simethicone (Gas-X) 125 mg capsule take 1 Capsule by oral route 3 times every day as needed before meals or at bedtime not to exceed 4 capsules in 24hrs 06/10/2021 Active glucosamine-chondroit in, 500-400mg, (COSAMIN DS) 500-400 mg tablet Take 1 Tablet by mouth three times daily. 0 08/12/2022 Active medication order composerIndications:L umbar radiculopathy,Medical cannabis use,Chronic pain syndrome Certified for [place] medical cannabis 0 05/24/2023 Active losartan (COZAAR) 50 mg tabletIndications:HTN (hypertension) Take 1 Tablet (50 mg) by mouth once daily. 180 Tablet 3 05/29/2023 Active acetaminophen (TYLENOL EXTRA STRGTH) 500 mg tablet Take 1-2 Tablets (500-1,000 mg) by mouth 4 times daily if needed for Pain. 0 05/29/2023 Active azelastine 137 mcg/actuation (ASTELIN) nasal spray Inhale 2 Sprays into affected nostril(s) one time if needed for Rhinitis. 30 mL 05/29/2023 Active fluticasone (50 mcg per actuation) nasal solution (FLONASE) Inhale 2 Sprays to both nostrils once daily if needed for Rhinitis. 16 g 05/29/2023 Active metFORMIN (GLUCOPHAGE XR) 500 mg Extended-Release tablet Take 1 Tablet (500 mg) by mouth two times daily with meals. 0 05/29/2023 Active sennosides (Senna) 8.6 mg tablet Take 1 Tablet (8.6 mg) by mouth two times daily. 0 05/29/2023 Active turmeric root extract 500 mg cap Take by mouth once daily. 0 05/29/2023 Active Active Problems Problem Noted Date Diagnosed Date Medical cannabis use 05/29/2023 Chronic pain syndrome 05/29/2023 Low back pain 03/08/2022 Idiopathic gout, multiple sites 03/08/2022 Congenital hypothyroidism without goiter 022 Type 2 diabetes mellitus without complications 0 03/08/2022 Other fatigue 03/08/2022 Cortical age-related cataract, left eye 03/08/20 22 Melanocytic nevi, unspecified 03/08/2022 Hypoxemia 03/21/2020 DM2 (diabetes mellitus, type 2) 03/19/2020 HTN (hypertension) 03/19/2020 Lumbar radiculopathy 03/19/2020 Status post lumbar spine lily keeley for decompression of spinal cord 03/19/2020 CAD (coronary artery disease) 03/19/2020 Screen for colon cancer 03/25/2011 Overview: Colonoscopy 03/2011 normal repeat in 10 years Right s/p RTSA 05/27/2010 03/19/2011 Arthropathy, shoulder region 08/28/2010 Overview: S/P right reverse total shoulder arthroplasty 05/27/2010 THYROIDITIS NOS 05/11/2001 Hypothyroid Mixed hyperlipidemia Immunizations Name Administration Dates Next Due Influenza Virus, Unspecified 11/24/2021, 10/18/2017,10/14/2016,2014,02/13/2015 Influenza, High-dose Inactivated 019,10/14/2016,09/30/2015,2014 Influenza, High-dose Quadriv alent Inactivated 08/17/2022 Influenza, IIV4 10/14/2016,09/30/2015,02/13/2015 Pneumococcal Poly,23-Valent (Pneumovax) 03/15/2022,11/14/2019,08/02/2019 Pneumococcal conj 13-Valent (Prevnar 13) 04/11/2014 Td (Age >=7 Years) 12/04/1996 Tdap 02/26/2016,03/13/2013,11/14/2012 Zoster (Shingrix-RZV, recombinant) 11/28/2019,,08/02/2019 Zoster (Zostavax-ZVL, live) 10/01/2015 Family History Medical History Relation Name Comments Diabetes type II Mother Hypertension Mother Genetic Other 1 Heart~Diabetes Genetic Other 2 Heart Brother~D iabetes Mother, Sister x2, brothers x2 Cancer-breast Sister 1 Cancer-breast Sister 2 Relation Name Status Comments Father Mother Other 1 Other 2 Sister 1 Alive Sister 2 Alive Social History Tobacco Use Types Packs/Day Years Used Date Smoking Tobacco: Former Cigarettes 0.5 15 1 990 - 2004 Smokeless Tobacco: Never Tobacco Cessation:Counseling Given: Yes Comments:Smoking History Packs/day: <1-no exposure Alcohol Use Standard Drinks/Week Comments No 0 (1 standard drink = 0.6 oz pur e alcohol) Social Connections Answer Date Recorded Frequency of Communication with Friends and Fami ly 0 05/20/2023 Financial Resource Strain Answer Date R ecorded Difficulty of Paying Living Expenses 3 05/20/2023 Difficulty of Paying Living Expenses Not on file 05/20/2023 Food Insecurity Answer Date Recorded Worried About Running Out of Food in the Last Ye ar 1 05/20/2023 Transportation Needs Answer Date Record ed Lack of Transportation (Medical) 1 05/20/2023 Housing Stability Answer Date Recorded Unable to Pay for Housing in the Last Year 1 05/20/2023 Sex and Gender Information Value Date Recorded Sex Assigned at Not on file Gender Identity Not on file Sexual Orientation Not on file Obstetrics History Para Term AB IAB SAB Ectopic Multiple Livin g Live Births 3 3 Date Outcome GA Total Labor Labor/2nd/3rd Weight Sex Type Anes PTL Latisha A1 A5 Name Clin Para Para Para Comments Contraception: partner is s/p vasectomy Last Filed Vital Signs Vital Sign Reading Time Taken Comments Blood Pressure 138/70 05/24/2023 11:46 AM CDT Pulse 80 05/24/2023 11:46 AM CDT Temperature 36.9 ??C (98.4 ??F) 03/22/2020 8:00 AM CD T Respiratory Rate 12 05/24/2023 11:46 AM CDT Oxygen Saturation 97% 05/24/2023 11:46 AM CDT Inhaled Oxygen Concentration - - Weight 62.6 kg (138 lb) 05/24/2023 11:46 AM CDT Height 154.5 cm (5' 0.83) 08/12/2022 1:30 PM CD T Body Mass Index 26.22 08/12/2022 1:30 PM CDT Plan of Treatment Health Maintenance Due Date Last Done Comments Depression screening for age 12+ 1960 Hepatitis C screening for ag e 18-79 1966 DEXA/DXA scan for age 65+ 2013 Colonoscopy through age 75 03/25/2021 03/25/2011, COVID-19 vaccine series ( season) 2023 08/17/2022, 05/03/2022, 10/16/2021, Additional history exists BMI (ht and wt on same day) for age 18+ 08/12/2023 08/12/2022, 07/03/2020, 03/15/2019 Medicare Wellness for age 65+ 12/16/2023 ([facility]) Lipids for age 45-75 02/27/2024 02/26/2019 Influenza for age 65+ 07/15/2024 08/17/2022 , 11/24/2021, 08/02/2019, Additional history exists Tetanus booster 02/25/2026 02/26/2016, 02/14, 11/14/2012, Additional history exists Tdap Completed 02/26/2016, 02/14, 11/14/2012 Zoster (shingles) series for age 50+ Completed 11/28/2019, 10/03/2019, 08/02/2019, Additional history exists Pneumococcal series for age 65+ Completed 03/15/2022, 11/14/2019, 08/02/2019, Additional history exists Medical Devices Implanted Type Area Decorator Store Device Identifier Shelf Expiration Date Model / Serial / Lot Screw Rev [id number] Self Tap Canclls Lock - [id number] Implanted:Qty: 1 on 05/27/2010 at [facility] Right: Shoulder [employer] [id number] / / Screw Rev [id number] Self Tap Canclls Lock - [id number] Implanted:Qty: 1 on 05/27/2010 at [facility] Right: Shoulder [employer] [id number]# / / Glenoid Base Plate Implanted:Qty: 1 on 05/27/2010 at [facility] Right: Shoulder [id number] / / [id number] Description:GLENOID BASE JAME TE Glenoid Sphere Implanted:Qty: 1 on 05/27/2010 at [facility] Right: Shoulder [id number] / / [id number] Description:GLENOID SPHERE Screw 32mm - [id number] Implanted:Qty: 1 on 05/27/2010 at [facility] Right: Shoulder MISCELLANEOUS MFR'S [id number]# / / Screw Rev [id number] Comp Self Tap Cnclls - [id number] Implanted:Qty: 1 on 05/27/2010 at [facility] Right: Shoulder [employer] [id number]# / / Insert Rev Lat [id number] - [id number] Implanted:Qty: 1 on 05/27/2010 at [facility] Right: Shoulder [employer] [id number]# / / [id number] Set Screw Lmbr Ant 5.5mm Solera Break Off - [id number] Implanted:Qty: 6 on 03/19/2020 by Sharad Hollis MD at [facility] Lumbar Vertebrae [employer] Spine/Ortho [id number] / / Screw Lmbr Post 7.5x45mm Solera 5.5/6 Va Cocr - [id number] Implanted:Qty: 6 on 03/19/2020 by Sharad Hollis MD at [facility] Lumbar Vertebrae Medtronic Spine/Ortho [id number]# / / Segundo Lmbr 80x5.5mm Solera 5.5/6cvd Titnm - [id number] Implanted:Qty: 2 on 03/19/2020 by Sharad Hollis MD at [facility] Lumbar Vertebrae Medtronic Spine/Ortho [id number]# / / Bone Matrix 20cc Mastergraft Mix Dbm - [id number] Implanted:Qty: 2 on 03/19/2020 by Sharad Hollis MD at [facility] Lumbar [employer]tebrae Medtronic Spine/Ortho 06/13/2020 [id number] / / [id number] Bone Matrix Sm Infuse Bmp - [id number] Implanted:Qty: 1 on 03/19/2020 by Sharad Hollis MD at [facility] Lumbar Vertebra[employer] Med[employer] Spine/Ortho 07/14/2021 [id number] / / [id number] H Procedures Procedure Name Priority Date/Time Associated Diagnosis Comments LIPID PANEL CARLYLE 02/26/2019 6:13 AM CDT from Last 3 Months or Most Recently Relevant to Health Maintenance Results * (ABNORMAL) Lipid Panel (02/26/2019 6:13 AM CDT) [facility] Signature CHOLESTEROL,TOTAL 187 100 - 199 mg/dL 02/26/2019 6:43 AM CDT [facility] TRIGLYCERIDES 200(H) <150 mg/dL 02/26/2019 6:43 AM CDT [facility] HDL CHOLESTEROL 59 >40 mg/dL 9 6:43 AM CDT [facility] NON-HDL CHOLESTEROL 128 <145 mg/dl 02/26/2019 6:43 AM CDT [facility] CHOL/HDL RATIO 3.17 <4.50 02/26/2019 6:43 AM CDT [facility] LDL CHOLESTEROL 88 <=130 mg/dL 02/26/2019 6:43 AM CDT [facility] PROVIDER ORDERED STATUS RANDOM 02/26/2019 6:43 AM CDT [facility] Blood BLOOD SPECIMEN / Unknown Venipuncture / Unknown 02/26/2019 6:13 AM CDT 02/26/2019 6:21 AM CDT Darryn Lorenzo MD CHEMISTRY [facility] SENDOUT INTERNAL ZIP [address] [place] [phone] from Last 3 Months or Most Recently Relevant to Health Maintenance Advance Directives * Full Code (Latest Code Status on File) Date Activated Date Inactivated Comments 03/19/2020 9:05 AM 03/22/2020 5:20 PM * Full Code Date Activated Date Inactivated Comments 02/26/2019 8:48 AM 02/26/2019 4:28 PM * Full Code Date Activated Date Inactivated Comments 05/27/2010 11:23 PM 05/29/2010 4:16 PM Care Teams Sheet Sorter Relationship Specialty Start Date End Date Stephen Macias MD [address] [place] [address] PCP - General Family Practice 03/08/22
--- OUTSIDE RECORDS SUMMARY | 2024-05-27 22:30 | XMS_ITS | Encounter Summary ---
Author Organization [facility] Address [address] [place] [address] Care Team Providers Care Glass Block Bender Name Role Phone Anne Campos M.D. Primary Care Provider [phone] Encounter Details Date Type Department Care Team (Latest Contact Info) Description 03/21/2024 8:52 AM CDT - 03/21/2024 11:59 PM CDT Hospital Encounter Department of Laboratory Medicine in [address] [phone] Anne Campos M.D. 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 More than 4 times per year 03/11/2023 Do you belong to any clubs o r organizations such as shinto groups, unions, fraternal or athletic groups, or [...] Answer Date Recorded PHQ-2 Score 0 03/14/2024 [facility] - Occupational [...] your living situation today? I have a [employer] place to live 03/16/2024 Education Answer Date [...] Start Date End Date Accu-Chek Fastclix Lancet DrumIndications:Diabet es Mellitus Type 2 With Diabetic Polyneuropathy (HCC) USE ONCE DAILY TO CHECK BLOOD SUGARS 100 each 3 02/16/2024 acetaminophen (TYLENOL) 500 mg tablet Take 1-2 tablets by mouth every 6 (six) hours as needed. 09/06/2014 amLODIPine (NORVASC) 5 mg tabletIndications:Hype rtension Essential Primary Take 1 tablet (5 mg total) by mouth at bedtime. 90 tablet 3 09/13/2023 azelastine (ASTELIN) 137 mcg/spray (0.1 %) nasal spray Administer 2 sprays into each nostril 2 (two) times a day as needed. 07/17/2022 blood sugar diagnostic strips (Accu-Chek SmartView Test Strip)Indications:Diab etes Mellitus Type 2 With Diabetic Polyneuropathy (HCC) Test once daily. 100 each 3 09/13/2023 diclofenac sodium (VOLTAREN) 1 % gelIndications:Radicul opathy Lumbar,Arthritis Hip Apply 2 g topically 4 (four) times a day. Apply to bilateral feet 450 g 3 09/13/2023 dulaglutide (Trulicity) 0.75 mg/0.5 mL injectionIndications:D iabetes Mellitus Type 2 With Diabetic Polyneuropathy (HCC) Inject 0.5 mL (0.75 mg total) under the skin every 7 (seven) days. 6 mL 3 09/13/2023 DULoxetine (CYMBALTA) [address] capsuleIndications:Tash betes Mellitus Type 2 With Diabetic Polyneuropathy (HCC) Take 1 capsule (30 mg total) by mouth daily. 90 capsule 3 03/21/2024 Farxiga 10 mg tabletIndications:Diab etes Mellitus Type 2 With Diabetic Polyneuropathy (HCC) Take 1 tablet (10 mg total) by mouth daily. 90 tablet 3 09/13/2023 glucosamine-chondroiti n (GLUCOSAMINE-CHONDROIT IN) 500-400 mg per capsuleIndications:Art hritis Hip Take 2 capsules by mouth daily. [...] tablet 3 09/13/2023 meloxicam (MOBIC) 15 mg tabletIndications:Radi culopathy Lumbar Take 1 tablet (15 mg total) by mouth daily. 90 tablet 3 10/03/2023 omeprazole (PriLOSEC) [address] capsuleIndications:Gas troesophageal Reflux Disease TAKE 1 CAPSULE(40 MG) BY MOUTH TWICE DAILY BEFORE BREAKFAST AND DINNER 180 capsule 3 02/20/2024 rosuvastatin (CRESTOR) 20 mg tabletIndications:Hype rlipidemia Mixed Take 1 tablet (20 mg total) by mouth at bedtime. 90 tablet 3 09/13/2023 turmeric root extract 500 mg capsule Take by mouth. 08/12/2022 hydrocortisone (HYTONE) 2.5 % creamIndications:[employer] titis Apply 1 Application topically 2 (two) times a day as needed for irritation. Use up to twice daily as needed for hemorrhoid irritation or external vaginal itching. 30 g 2 09/13/2023 04/25/2024 sennosides-docusate sodium (Stimulant Laxative Plus) 8.6-50 mg per tabletIndications:Cons tipation Take 2 tablets by mouth 2 (two) times a day. TAKE 2 TABLETS BY MOUTH TWICE DAILY NEEDED FOR CONSTIPATION Strength: 8.6-50 mg 360 tablet 3 01/09/2024 04/18/2024 documented as of this encounter Plan of Treatment Upcoming Encounters Date Type Department Care Team (Latest Contact Info) Description 06/12/2024 8:45 AM CDT Appointment Division of Gastroenterology in [place], [place] [address] [place] [phone] Nikky Causey M.D., M.P.H. [address] [place] [phone] 06/12/2024 10:45 AM CDT Appointment Division of Gastroenterology in [place], [place] [address] [place] [phone] Nikky Causey M.D., M.P.H. [address] [place] [phone] Kade Rios M.D. [address] [place] [phone] 06/14/2024 9:45 AM CDT Appointment Division of Gastroenterology in [place], [place] [address] [place] [phone] Nikky Causey M.D., M.P.H. [address] [place] [phone] Discharge Disposition: Home or Self Care 06/20/2024 9:30 AM CDT Diagnostic Division of Pulmonary Medicine in [place], [place] [address] [place] [phone] Mina Quach M.D. [address] [place] [phone] 06/26/2024 9:00 AM CDT Office Visit Department of Cardiovascular Diseases in [address] [phone] Mina Quach M.D. [address] [place] [phone] 07/06/2024 8:30 AM CDT Appointment Department of Laboratory Medicine in [address] [phone] Anne Campos M.D. [address] [place] [phone] 07/06/2024 9:15 AM CDT Office Visit Department of Family Medicine, [facility], in [address] [phone] Anne Campos M.D. 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) COMPREHENSIVE METABOLIC PANEL, S/P Routine 03/21/2024 9:06 AM CDT 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) Hyperlipidemia Mixed documented in this encounter Results * Pernicious Anemia [place] (03/21/2024 9:07 AM CDT) Vitamin B12 Assay, S 455 180 - 914 ng/L 03/22/2024 10:24 AM CDT [facility] Blood (Blood, Venous) 03/21/2024 9:07 AM CDT 03/22/2024 7:50 AM CDT Narrative [facility] - 03/22/2024 10:24 AM CDT Specimen Information: Specimen ID: [id number] Specimen Type: Blood Specimen Collection Start Date: 03/21/2024 ??9:07 AM Specimen Received Date: 03/22/2024 ??7:50 AM Specimen ID: [id number] Specimen Type: Blood Specimen Collection Start Date: 03/21/2024 ??9:07 AM Specimen Received Date: 03/22/2024 ??7:54 AM Anne Campos M.D. LAB BLOOD NON ADD-O N [facility] [address] [place] [address] [facility] [address] [place] [address] * S-TSH (Thyroid-Stimulating Hormone - Sensitive) (03/21/2024 9:07 AM CDT) TSH, Sensitive 1.2 0.3 - 4.2 mIU/L 03/21/2024 9:40 AM CDT [place] Blood (Blood, Venous) 03/21/2024 9:07 AM CDT 03/21/2024 9:08 AM CDT Anne Campos M.D. LAB BLOOD ADD-ON Performing Organization Address City/[facility]/ZIP Co de Phone Number [facility] [address] [place] [address], [place] [address] * (ABNORMAL) Lipid Panel (03/21/2024 9:06 AM CDT) Triglycerides 163(H) mg/dL 03/21/2024 9:33 AM CDT [facility] Comment: ----REFERENCE VALUE---- Normal: <150 mg/dL Borderline High: 150-199 mg/dL High: 200-499 mg/dL Very High: > or =500 mg/dL Cholesterol, Total 178 mg/dL 2023 9:33 AM CDT [facility] Comment: ----REFERENCE VALUE---- Desirable: < 200 mg/dL Borderline High: 200 - 239 mg/dL High: > or = 240 mg/dL Cholesterol, LDL, Calculated 86 mg/dL 03/21/2024 9:33 AM CDT [facility] Comment: ----REFERENCE VALUE---- Desirable: <100 mg/dL Above [...] 9:06 AM CDT 03/21/2024 9:08 AM CDT Anne Campos M.D. LAB BLOOD ADD-ON Performing Organization Address City/State/[facility] Co de Phone Number [facility] [address] [place] [address], [facility] [place] [address] * CBC with Differential, Blood (03/21/2024 9:06 [...] 9:06 AM CDT 03/21/2024 9:08 AM CDT Anne Campos M.D. LAB BLOOD ADD-ON Performing Organization Address City/State/[facility] Co de Phone Number [facility] [address] [place] [address], [facility] [place] [address] * (ABNORMAL) Comprehensive Metabolic Panel (03/21/2024 9:06 [...] 9:06 AM CDT 03/21/2024 9:08 AM CDT Anne Campos M.D. LAB BLOOD ADD-ON Performing Organization Address City/State/[facility] Co de Phone Number [facility] [address] [place] [address], [facility] in [address] [phone] * (ABNORMAL) Hemoglobin A1c (03/21/2024 9:06 AM [...] 9:06 AM CDT 03/21/2024 9:08 AM CDT Anne Campos M.D. 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 [address] [place] [phone] PCP - General Family Medicine 04/23/22 [facility] [place] [facility] 03/21/24 [facility] Ophthalmology 03/21/24 documented as of this encounter
--- OUTSIDE RECORDS SUMMARY | 2024-05-27 22:30 | XMS_ITS | Encounter Summary ---
Author Organization [facility] Address [address] [place] [address] Care Team Providers Care Brimmer Blocker Name Role Phone Anne Campos M.D. Primary Care Provider +1- [phone] Reason for Visit * Reason Comments Med Refill Encounter Details Date Type Department Care Team (Late st Contact Info) Description 04/17/2024 Refill Department of Family Medicine, [facility], in [address] [phone] Anne Campos M.D. [address] [place] [phone] Med Refill Social History Tobacco Use Types Packs/Day Years Used Date Smoking Tobacco: Former Cigarettes Q uit: 2004 Smokeless Tobacco: Never Alcohol Use Standard Drinks/Week Comments Not Currently 1 (1 standard drink = 0.6 oz pur e alcohol) rare [facility] Utilities Answer Date Recorded In the past 12 months has e [email or web address], gas, oil, or water company threatened to [...] any clubs o r organizations such as sabianism groups, unions, fraternal or athletic groups, or [...] Answer Date Recorded PHQ-2 Score 0 03/14/2024 [facility] [place] of Occupat ional Health - Occupational Stress [...] your living situation today? I have a [facility] place to live 03/16/2024 Education Answer [...] encounter Miscellaneous Notes * Telephone Encounter - Anne Campos M.D. - 04/18/2024 12:03 PM CDT Prescription approved. * Telephone Encounter - Velvet Sandoval - 04/18/2024 9:41 AM CDT Nurse review: Med Refill Team is unable to forward request to provider. Discrepancy; Patient Med list shows Take 2 tablets by mouth 2 (two) times a day, pharmacy is requesting TAKE 1 TO 3 TABLETS BY MOUTH TWICE DAILY NEEDED FOR CONSTIPATION Primary Provider: Anne Campos M.D. Requested Prescriptions Pending Prescriptions Disp Refills Stimulant Laxative Plus 8.6-50 mg per tablet [Pharmacy Med Name: STIMULANT 8.6- 50MG TABLETS] 100 tablet Sig: TAKE 1 TO 3 TABLETS BY MOUTH TWICE DAILY NEEDED FOR CONSTIPATION documented in this encounter Plan of Treatment Upcoming Encounters Date Type Department Care Team (Latest Contact Info) Description 06/12/2024 8:45 AM CDT Appointment Division of Gastroenterology in [address] [phone] Nikky Causey M.D., M.P.H. [address] [place] [phone] 06/12/2024 10:45 AM CDT Appointment Division of Gastroenterology in [address] [phone] Nikky Causey M.D., M.P.H. [address] [place] [phone] Kade Rios M.D. [address] [place] [phone] 06/14/2024 9:45 AM CDT Appointment Division of Gastroenterology in [address] [phone] Nikky Causey M.D., M.P.H. [address] [place] [phone] Discharge Disposition: Home or Self Care 06/20/2024 9:30 AM CDT Diagnostic Division of Pulmonary Medicine in [place], [place] [address] [place] [phone] Mina Quach M.D. [address] [place] [phone] 06/26/2024 9:00 AM CDT Office Visit Department of Cardiovascular Diseases in [address] [phone] Mina Quach M.D. [address] [place] [phone] 07/06/2024 8:30 AM CDT Appointment Department of Laboratory Medicine in [address] [phone] Anne Campos M.D. [address] [place] [phone] 07/06/2024 9:15 AM CDT Office Visit Department of Family Medicine, [facility], in [address] [phone] Anne Campos M.D. [address] [place] [phone] Discharge Disposition: Home or Self Care documented as of this encounter Visit Diagnoses Diagnosis Constipation documented in this encounter Additional Health Concerns Assessment Noted Time PHQ-9 Depression Total Score: 6 09/03/20 14 2:09 PM CDT documented as of this encounter Care Teams Brimmer Blocker Relationship Specialty Start Date End Date Anne Campos M.D. [address] [place] [phone] PCP - General Family Medicine 04/23/22 [facility] [place] [facility] 03/21/24 [facility] Ophthalmology 03/21/24 documented as of this encounter
--- OUTSIDE RECORDS SUMMARY | 2024-05-27 22:30 | XMS_ITS | Encounter Summary ---
Author Organization [facility] Address [address] [place] [address] Care Team Providers Care E Commerce Director Name Role Phone Anne Campos M.D. 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 [address] [place] [phone] [facility] Referral ID Status Reason Start Date Expiration Date Visits Re quested Visits Authorized [id number] Closed 03/21/2024 03/21/2025 1 1 Encounter Details Date Type Department Care Team (Late st Contact Info) Description 04/19/2024 11:30 AM CDT Diagnostic Department of Neurology in [address] [phone] Lex Morris M.D. 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 More than 4 times per year 03/11/2023 Do you belong to any clubs o r organizations such as congregation groups, unions, fraternal or athletic groups, or [...] Answer Date Recorded PHQ-2 Score 0 03/14/2024 [facility] [place] of Occupat ional Health - Occupational Stress [...] your living situation today? I have a [facility] place to live 03/16/2024 Education Answer [...] AM CDT Appointment Division of Gastroenterology in [place], [place] [address] [place] [phone] Nikky Causey M.D., M.P.H. [address] [place] [phone] 06/12/2024 10:45 AM CDT Appointment Division of Gastroenterology in [place], [place] [address] [place] [phone] Nikky Causey M.D., M.P.H. [address] [place] [phone] Kade Rios M.D. [address] [place] [phone] 06/14/2024 9:45 AM CDT Appointment Division of Gastroenterology in [place], [place] [address] [place] [phone] Nikky Causey M.D., M.P.H[facility] [address] [place] [phone] Discharge Disposition: Home or Self Care 06/20/2024 9:30 AM CDT Diagnostic Division of Pulmonary Medicine in [place], [place] [address] [place] [phone] Mina Quach M.D. [address] [place] [phone] 06/26/2024 9:00 AM CDT Office Visit Department of Cardiovascular Diseases in [address] [phone] Mina Quach M.D. [address] [place] [phone] 07/06/2024 8:30 AM CDT Appointment Department of Laboratory Medicine in [address] [phone] Anne Campos M.D. [address] [place] [phone] 07/06/2024 9:15 AM CDT Office Visit Department of Family Medicine, [facility], in [address] [phone] Anne Campos M.D. 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 19-Apr-2024 ? Electromyography ? Final Report Study Number: [id number] EMG Physical Chemist: Ernesto Morris 127 or [phone] Referred by: ANNE CAMPOS () Referred for: [...] on this study. N. Seven (127 or [phone]) NERVE CONDUCTIONS ??Record Rep ?? Normal ??Normal [...] CDT Anne Campos M.D. 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 [address] [place] [phone] PCP - General Family Medicine 04/23/22 [facility] [place] [facility] 03/21/24 [facility] Ophthalmology 03/21/24 documented as of this encounter
--- OUTSIDE RECORDS SUMMARY | 2024-05-27 22:30 | XMS_ITS | Encounter Summary ---
Author Organization [facility] Address [address] [place] [address] Care Team Providers Care Ophthalmic Dispenser Name Role Phone Anne Campos M.D. Primary Care Provider +1- [phone] Reason for Referral * Outpatient (Routine) - Closed Specialty Diagnoses / Procedures Referred By Louie dominguez Referred To Contact Diagnoses Screening Mammogram Breast Cancer Procedures BI Breast Screening Bilateral with Tomosynthesis Anne Campos M.D. [address] [place] [phone] [facility] Referral ID Status Reason Start Date Expiration Date Visits Re quested Visits Authorized [id number] Closed 03/20/2024 03/20/2025 1 1 Encounter Details Date Type Department Care Team (Late st Contact Info) Description 03/20/2024 Orders Only [facility] Anne Campos M.D. [address] [place] [phone] Screening Mammogram Breast Cancer Social History Tobacco Use Types Packs/Day Years Used Date Smoking Tobacco: Former Cigarettes Q uit: 2005 Smokeless Tobacco: Never Alcohol Use Standard Drinks/Week Comments Not Currently 1 (1 standard drink = 0.6 oz pur e alcohol) rare [facility] Utilities Answer Date Recorded In the past [...] How often do you attend chur or advent services? More than 4 times per year 03/11/2023 Do you belong to any clubs o r organizations such as mu-ism groups, unions, fraternal or athletic groups, or [...] Answer Date Recorded PHQ-2 Score 0 03/14/2024 [facility] of Occupat ional Health - Occupational [...] your living situation today? I have a [facility] place to live 03/16/2024 Education Answer Date [...] AM CDT Appointment Division of Gastroenterology in [place], [place] [address] [place] [phone] Nikky Causey M.D., M.P.H. [address] [place] [phone] 06/12/2024 10:45 AM CDT Appointment Division of Gastroenterology in [place], [place] [address] [place] [phone] Nikky Causey M.D., M.P.H. [address] [place] [phone] Kade Rios M.D. [address] [place] [phone] 06/14/2024 9:45 AM CDT Appointment Division of Gastroenterology in [place], [place] [address] [place] [phone] Nikky Causey M.D., M.P.H[facility] [address] [place] [phone] Discharge Disposition: Home or Self Care 06/20/2024 9:30 AM CDT Diagnostic Division of Pulmonary Medicine in [place], [place] [address] [place] [phone] Mina Quach M.D. [address] [place] [phone] 06/26/2024 9:00 AM CDT Office Visit Department of Cardiovascular Diseases in [address] [phone] Mina Quach M.D. 701 [place] [phone] 07/06/2024 8:30 AM CDT Appointment Department of Laboratory Medicine in [address] [phone] Anne Campos M.D. [address] [place] [phone] 07/06/2024 9:15 AM CDT Office Visit Department of Family Medicine, [facility], in [address] [phone] Anne Campos M.D. [address] [place] [phone] Discharge Disposition: Home or Self Care documented as of this encounter Results * BI Breast Screening [...] Visit Diagnoses Diagnosis Screening Mammogram Breast Cancer Screening Mammogram Breast Cancer documented in this encounter Additional Health Concerns Assessment Noted Time PHQ-9 Depression Total Score: 6 09/03/20 14 2:09 PM CDT documented as of this encounter Care Teams Ophthalmic Dispenser Relationship Specialty Start Date End Date Anne Campos M.D. [address] [phone] PCP - General Family Medicine 04/23/22 documented as of this encounter
--- OUTSIDE RECORDS SUMMARY | 2024-05-27 22:30 | XMS_ITS | Encounter Summary ---
Author Organization [facility] Address [address] [place] [phone] Care Team Providers Care Weight Training Instructor Name Role Phone Anne Campos M.D. Primary Care Provider +1 [phone] Reason for Visit * Reason Comments Med Refill Encounter Details Date Type Department Care Team (Late st Contact Info) Description 02/26/2024 Refill Division of Gastroenterology in [place], [place] [address] [place] [phone] Nikky Causey M.D., M.P.H. [address] [place] [phone] Med Refill Social History Tobacco Use Types Packs/Day Years Used Date Smoking Tobacco: Former Cigarettes Q uit: 2005 Smokeless Tobacco: Never Alcohol Use Standard Drinks/Week Comments Not Currently 1 (1 standard drink = 0.6 oz pur e alcohol) rare [facility] Utilities Answer Date Recorded In the [...] How often do you attend chur or caodaism services? More than 4 times per year [...] Answer Date Recorded PHQ-2 Score 0 03/14/2024 [facility] [place] of Occupat ional Health - Occupational Stress [...] your living situation today? I have a [facility] place to live 03/16/2024 Education Answer [...] AM CDT Appointment Division of Gastroenterology in [place], [place] [address] [place] [phone] Nikky Causey M.D., M.P.H. [address] [place] [phone] 06/12/2024 10:45 AM CDT Appointment Division of Gastroenterology in [place], [place] [address] [place] [phone] Nikky Causey M.D., M.P.H[facility] [address] [place] [phone] Kade Rios M.D. [address] [place] [phone] 06/14/2024 9:45 AM CDT Appointment Division of Gastroenterology in [place], [place] [address] [place] [phone] Nikky Causey M.D., M.P.H[facility] [address] [place] [phone] Discharge Disposition: Home or Self Care 06/20/2024 9:30 AM CDT Diagnostic Division of Pulmonary Medicine in [place], [place] [address] [place] [phone] Mina Quach M.D. [address] [place] [phone] 06/26/2024 9:00 AM CDT Office Visit Department of Cardiovascular Diseases in [address] [phone] Mina Quach M.D. [address] [place] [phone] 07/06/2024 8:30 AM CDT Appointment Department of Laboratory Medicine in [address] [phone] Anne Campos M.D. [address] [place] [phone] 07/06/2024 9:15 AM CDT Office Visit Department of Family Medicine, [facility], in [address] [phone] Anne Campos M.D. [address] [place] [phone] Discharge Disposition: Home or Self Care documented as of this encounter Visit Diagnoses Diagnosis Gastroesophageal Reflux Disease documented in this encounter Additional Health Concerns Assessment Noted Time PHQ-9 Depression Total Score: 6 09/03/20 14 2:09 PM CDT documented as of this encounter Care Teams Weight Training Instructor Relationship Specialty Start Date End Date Anne Campos M.D. [address] [place] [phone] PCP - General Family Medicine 04/23/22 [facility] 03/21/24 [facility] Ophthalmology 03/21/24 documented as of this encounter
--- OUTSIDE RECORDS SUMMARY | 2024-05-27 22:30 | XMS_ITS | Encounter Summary ---
Author Organization [facility] Address [address] [place] [address] Care Team Providers Care Roller Engraver Name Role Phone Anne Campos M.D. Primary Care Provider +[phone] Reason for Referral * Outpatient (Routine) - Authorized Specialty Diagnoses / Procedures Referred By Contac t Referred To Contact Anne Campos M.D. [address] [place] [phone] [facility] Referral ID Status Reason Start Date Expiration Date V isits Requested Visits Authorized [id number] Authorized 03/21/2024 09/20/2025 1 1 Scheduling Instructions 12-Month Medicare Visit Reason for Visit * Reason Comments Nurse Visit Medicare Annual Wellness Visit Subsequen t * Outpatient (Routine) - Closed Specialty Diagnoses / Procedures Referred By Contac t Referred To Contact Anne Campos M.D. [address] [place] [phone] [facility] Region Referral ID Status Reason Start Date Expiration Date Visits Re quested Visits Authorized [id number] Closed 02/14/2024 08/15/2025 1 1 Encounter Details Date Type Department Care Team (Late st Contact Info) Description 03/21/2024 10:15 AM CDT Office Visit Department of Family Medicine, [facility], in [address] [phone] Anne Campos M.D. [address] [place] [phone] Shelby Nesbitt R.N. 200 [place] [phone] Annual Medicare Examination Return (Primary Dx) Discharge Disposition: Home or Self Care Social History Tobacco Use Types Packs/Day Years Used Date Smoking Tobacco: Former Cigarettes Q uit: 2004 Smokeless Tobacco: Never Alcohol Use Standard Drinks/Week Comments Not Currently 1 (1 standard drink = 0.6 oz pur e alcohol) rare [facility] Utilities Answer Date Recorded In the past 12 months has [employer], oil, or water [employer] threatened to shut off services in your [...] week 03/11/2023 How often do you attend [facility] or sikh services? More than 4 times per year 03/11/2023 Do you belong to any clubs o r organizations such as gnosticism groups, unions, fraternal or athletic groups, or [...] 03/14/2024 [facility] of Occupat ional [facility] - Occupational Stress Questionnaire Answer Date [...] your living situation today? I have a [facility] place to live 03/16/2024 Education Answer [...] AM CDT documented as of this encounter Progress Notes * Shelby Nesbitt R.N. - 03/21/2024 10:15 AM CDT HEALTH ASSESSMENT Reason For Visit Patient presents with Nurse Visit Medicare Annual Wellness Visit Subsequent The following portions of the patient's history were reviewed and updated as appropriate: allergies, medications, family history, social history, surgical history and care team/suppliers. VITALS Blood Pressure: 136/80 (03/21/2024 9:42 AM) Temperature: 36.9 ??C (03/21/2024 9:42 AM) Temp Source: Temporal (03/21/2024 9:42 AM) Pulse Rate: 89 (03/21/2024 9:42 AM) Resp Rate: 18 (03/21/2024 9:42 AM) BMI (Calculated): 26.1 kg/m?? (03/21/2024 9:42 AM) SpO2: 96 % (03/21/2024 9:42 AM) Height: 157.6 cm (03/21/2024 9:42 AM) Weight: 64.8 kg (03/21/2024 9:42 AM) Health Risk Assessment (HRA) completed and reviewed: Yes Social Determinants of Health (SDOH) questionnaires were reviewed and the following concerns were prioritized to be addressed during this visit: No concerns identified. Depression Screening PHQ-2 Score: 0 Cognitive Assessment Cognitive function assessed by direct observation without concerns. Current Opioid Use None FUNCTIONAL/HOME ENVIRONMENT History of falls: Have you fallen within the last year or do you fear you might fall?: No (49:30 AM) Do you use an assisted device to walk? (Walker, cane, wheelchair, crutch): No (03/21/2024 9:30 AM) Today, do you feel any of the following? Weak, dizzy, shaky, or unsteady?: No (03/21/2024 9:30 AM) Have you taken any medication within the last 6 hours which may make you feel drowsy? Such as sleep, pain, or anxiety medication: No (03/21/2024 9:30 AM) Home Safety Does your home have throw rugs, poor lighting or slippery bathtub/shower? No Does your home have grab bars in the bathroom, handrails on the stairs and steps? Yes Does your home have functional smoke and carbon monoxide alarms? Yes Advance Directive Advance Directives: Not Received Patient has advance directives completed- not on file. Patient/Caregiver was requested to provide acopy at their earliest convenience. Preventive Services Schedule Health Maintenance Topic Date Due Hepatitis B Vaccines (1 of 3 - Risk 3-dose series) Never done COVID-19 Vaccine (2022- season) 2023 Influenza Vaccine (1) 08/14/2023 Diabetic Office Visit with Foot Exam 03/18/2024 Mammogram 03/18/2024 Dilated Eye Exam 09/12/2024 Visit: Chronic Disease, age 18+ 09/13/2024 Urine Albumin 09/13/2024 Hemoglobin A1C 09/21/2024 Creatinine Level (Kidney Function Test) 03/21/2025 Potassium Level 03/21/2025 Thyroid Stimulating Hormone (TSH) test for thyroid function 03/21/2025 Office Visit for Blood Pressure Check / Re-check 03/21/2025 Sodium Level 03/21/2025 Visit: Medicare Annual Wellness 03/22/2025 DTaP,Tdap,and Td Vaccines (4 - Td or Tdap) 02/25/2026 Colorectal Cancer Screening 02/21/2028 Lipid (Cholesterol) Screening 03/21/2029 Depression Screening (Annual PHQ-2) Completed Fall Risk Screen (Annual) Completed Pneumococcal vaccine (65+ years) Completed Zoster Vaccines Completed Hepatitis C Screening Addressed Bone Density Scan (Osteoporosis Screen) Discontinued Declined vaccinations. Provider has ordered mammogram , pt needs to schedule . After Visit Summary (AVS) reviewed and patient will access via patient online services documented in this encounter Plan of Treatment Upcoming Encounters Date Type Department Care Team (Latest Contact Info) Description 06/12/2024 8:45 AM CDT Appointment Division of Gastroenterology in [place], [place] [address] [place] [phone] Nikky Causey M.D., M.P.H[facility] [address] [place] [phone] 06/12/2024 10:45 AM CDT Appointment Division of Gastroenterology in [place], [place] [address] [place] [phone] Nikky Causey M.D., M[facility]P.H[facility] [address] [place] [phone] Kade Rios M.D. [address] [place] [phone] 06/14/2024 9:45 AM CDT Appointment Division of Gastroenterology in [place], [place] [address] [place] [phone] Nikky Causey M.D[facility].H[facility] [address] [place] [phone] Discharge Disposition: Home or Self Care 06/20/2024 9:30 AM CDT Diagnostic Division of Pulmonary Medicine in [place], [place] [address] [place] [phone] Mina Quach M.D. [address] [place] [phone] 06/26/2024 9:00 AM CDT Office Visit Department of Cardiovascular Diseases in [address] [phone] Mina Quach M.D. [address] [place] [phone] 07/06/2024 8:30 AM CDT Appointment Department of Laboratory Medicine in [address] [phone] Anne Campos M.D. [address] [place] [phone] 07/06/2024 9:15 AM CDT Office Visit Department of Family Medicine, [facility], in [address] [phone] Anne Campos M.D. [address] [place] [phone] Discharge Disposition: Home or Self Care Scheduled Referrals Name Type Priority Associated Diagnoses Orde r Schedule Primary Care nurse visit (clinic) - [facility] Region; Medicare Annual Wellness Outpatient Referral Routine Expected: 03/21/2025 (Approximate), Expires: 06/21/2025 documented as of this encounter Visit Diagnoses Diagnosis Annual Medicare Examination Return- Primary documented in this encounter Additional Health Concerns Assessment Noted Time PHQ-9 Depression Total Score: 6 09/03/20 14 2:09 PM CDT documented as of this encounter Care Teams Roller Engraver Relationship Specialty Start Date End Date Anne Campos M.D. [address] [place] [phone] PCP - General Family Medicine 04/23/22 [facility] [place] [facility] 03/21/24 [facility] Ophthalmology 03/21/24 documented as of this encounter
--- OUTSIDE RECORDS SUMMARY | 2024-05-27 22:30 | XMS_ITS | Encounter Summary ---
Author Organization [facility] Address [address] [place] [address] Care Team Providers Care Pattern Keeper Name Role Phone Anne Campos M.D. Primary Care Provider [phone]- [phone] Reason for Visit * Reason Comments Med Refill Encounter Details Date Type Department Care Team (Late st Contact Info) Description 02/19/2024 Refill Department of Family Medicine, [facility], in [address] [phone] Anne Campos M.D. [address] [place] [phone] Med Refill Social History Tobacco Use Types Packs/Day Years Used Date Smoking Tobacco: Former Cigarettes Q uit: 2004 Smokeless Tobacco: Never Alcohol Use Standard Drinks/Week Comments Not Currently 1 (1 standard drink = 0.6 oz pur e alcohol) rare Humiliation, Afraid, Rape, and Kick questionnair e Answer Date Recorded Within the last year, have y ou been afraid of your partner or ex-partner? No 06/06/2023 Within the last year, have y ou been humiliated or emotionally abused in other ways by your partner or ex-partner? No Within the last year, have y ou been kicked, hit, slapped, or otherwise physically hurt by your partner or ex-partner? No 06/06/2023 Within the last year, have y ou been raped or forced to have any kind of sexual activity by your partner or ex-partner? No 06/06/2023 Social Connection and Isolat ion Panel [NHANES] Answer Date Recorded In a typical week, how many times do you talk on the phone with family, friends, or neighbors? More than three times a week 03/11/2023 How often do you get togethe r with friends or relatives? Once a week 03/11/2023 How often do you attend chur or mandaeism services? More than 4 times per year 03/11/2023 Do you belong to any clubs o r organizations such as orthodoxy groups, unions, fraternal or athletic groups, or [...] PHQ-2 Answer Date Recorded PHQ-2 Score 0 03/11/2023 [facility] of Occupat ional Health - Occupational Stress [...] to strenuous exercise (like a brisk walk)? Patient declined On average, how many minutes do you engage in exercise at this level? Patient declined 03/11/2023 Hunger Vital Sign Answer Date Recorded Within the past 12 months, y ou worried that your food would run out before you got the money to buy more. Never true 06/06/20 23 Within the past 12 months, t he food you bought just didn't last and you didn't have money to get more. Never true 06/06/2023 PRAPARE - Transportation Answer Date Re corded In the past 12 months, has l ack of transportation kept you from medical appointments or from getting medications? No 05/15 In the past 12 months, has l ack of transportation kept you from meetings, work, or from getting things needed for daily living? No 06/06/2023 Nutrition Answer Date Recorded Nutrition: EVOO Fat Source No 03/11 On average, how many serving s of fruits and vegetables do you eat per day (serving size is equal to 1 cup or approximately the size of a tennis ball)? 2-3 03/11/2023 Dental Answer Date Recorded Dental: Regular Dentist Yes 05/03/20 Employment Answer Date Recorded Employment status Retired 03/11/2023 Housing Stability Answer Date Recorded What is your living situation today? I have a [facility] place to live 06/06/2023 Education Answer Date Recorded What is the [...] AM CDT Appointment Division of Gastroenterology in [place], [place] [address] [place] [phone] Nikky Causey M.D., M.P.H. [address] [place] [phone] 06/12/2024 10:45 AM CDT Appointment Division of Gastroenterology in [place], [place] [address] [place] [phone] Nikky Causey M.D., M.P.H. [address] [place] [phone] Kade Rios M.D. [address] [place] [phone] 06/14/2024 9:45 AM CDT Appointment Division of Gastroenterology in [place], [place] [address] [place] [phone] Nikky Causey M.D., M.P.H. [address] [place] [phone] Discharge Disposition: Home or Self Care 06/20/2024 9:30 AM CDT Diagnostic Division of Pulmonary Medicine in [place], [place] [address] [place] [phone] Mina Quach M.D. [address] [place] [phone] 06/26/2024 9:00 AM CDT Office Visit Department of Cardiovascular Diseases in [address] [phone] Mina Quach M.D. [address] [place] [phone] 07/06/2024 8:30 AM CDT Appointment Department of Laboratory Medicine in [address] [phone] Anne Campos M.D. [address] [place] [phone] 07/06/2024 9:15 AM CDT Office Visit Department of Family Medicine, [facility], in [address] [phone] Anne Campos M.D. [address] [place] [phone] Discharge Disposition: Home or Self Care documented as of this encounter Visit Diagnoses Diagnosis Gastroesophageal Reflux Disease documented in this encounter Additional Health Concerns Assessment Noted Time PHQ-9 Depression Total Score: 6 09/03/20 14 2:09 PM CDT documented as of this encounter Care Teams Pattern Keeper Relationship Specialty Start Date End Date Anne Campos M.D. [address] [place] [phone] PCP - General Family Medicine 04/23/22 documented as of this encounter
--- OUTSIDE RECORDS SUMMARY | 2024-05-27 22:30 | XMS_ITS | Encounter Summary ---
Author Organization [facility] Address [address] [place] [address] Care Team Providers Care Splitting Machine Operator Helper Name Role Phone Anne Campos M.D. Primary Care Provider [phone]- [phone] Reason for Visit * Reason Comments Med Refill Encounter Details Date Type Department Care Team (Late st Contact Info) Description 02/19/2024 Refill Department of Family Medicine, [facility], in [address] [phone] Anne Campos M.D. [address] [place] [phone] Med Refill Social History Tobacco Use Types [...] How often do you attend chur or scientology services? More than 4 times per year 03/11/2023 Do you belong to any clubs o r organizations such as gnosticist groups, unions, fraternal or athletic groups, or [...] Answer Date Recorded PHQ-2 Score 0 03/11/2023 [facility] of Occupat ional Health - Occupational Stress [...] your living situation today? I have a [facility] place to live 06/06/2023 Education Answer Date [...] Telephone Encounter - Anne Campos M.D. - 02/20/2024 4:56 PM CDT Prescription approved. documented in this encounter Plan of Treatment Upcoming Encounters Date Type Department Care Team (Latest Contact Info) Description 06/12/2024 8:45 AM CDT Appointment Division of Gastroenterology in [place], [place] [address] [place] [phone] Nikky Causey M.D., M.P.H. [address] [place] [phone] 06/12/2024 10:45 AM CDT Appointment Division of Gastroenterology in [place], [place] [address] [place] [phone] Nikky Causey M.D., M.P.H. [address] [place] [phone] Kade Rios M.D. [address] [place] [phone] 06/14/2024 9:45 AM CDT Appointment Division of Gastroenterology in [place], [place] [address] [place] [phone] Nikky Causey M.D., M.P.H. [address] [place] [phone] Discharge Disposition: Home or Self Care 06/20/2024 9:30 AM CDT Diagnostic Division of Pulmonary Medicine in [place], [place] [address] [place] [phone] Mina Quach M.D. [address] [place] [phone] 06/26/2024 9:00 AM CDT Office Visit Department of Cardiovascular Diseases in [address] [phone] Mina Quach M.D. [address] [place] [phone] 07/06/2024 8:30 AM CDT Appointment Department of Laboratory Medicine in [address] [phone] Anne Campos M.D. [address] [place] [phone] 07/06/2024 9:15 AM CDT Office Visit Department of Family Medicine, [facility], in [address] [phone] Anne Campos M.D. [address] [place] [phone] Discharge Disposition: Home or Self Care documented as of this encounter Visit Diagnoses Diagnosis Gastroesophageal Reflux Disease documented in this encounter Additional Health Concerns Assessment Noted Time PHQ-9 Depression Total Score: 6 09/03/20 14 2:09 PM CDT documented as of this encounter Care Teams Splitting Machine Operator Helper Relationship Specialty Start Date End Date Anne Campos M.D. [address] [place] [phone] PCP - General Family Medicine 04/23/22 documented as of this encounter
== END 2024-05-27 23:05 | disposition home or self-care (01) ==
PROVIDERS: Emergency Provider Emergency Medicine Emergency Medical Services; PCP Family Medicine
DX: S73.035A Other anterior dislocation of left hip, initial encounter (principal); T84.021A Dislocation of internal left hip prosthesis, initial encounter; X58.XXXA Exposure to other specified factors, initial encounter
CPT/HCPCS: 27250; 72170; 73502; 93005; 96374; 96375; 99156; 99284; 99285; J1170; J2704; J7050